=== PATIENT | male | born 1945 | race Caucasian/White ===

== ENCOUNTER → 2023-08-17 15:17 | Outpatient (REF) | payer OTHER, SELFPAY ==
[2023-08-17 16:02] LABS: % Basophils 0.8 % (0-2); % Eosinophils 3.1 % (0-6); % Immature Granulocytes 1.2 % (0-0.5); % Lymphocytes 16.9 % (20.5-51.1); % Monocytes 11.5 % (1.7-9.3); % Neutrophils 66.5 % (42.2-75.2); Absolute Eosinophils 0.2 10^3/uL (0-0.7); Absolute Immature Granulocytes 0.1 10^3/uL (0-0.05); Absolute Lymphocytes 0.9 10^3/uL (1.2-3.4); Absolute Monocytes 0.6 10^3/uL (0.1-0.6); Absolute Neutrophils 3.5 10^3/uL (1.4-6.5); Hematocrit 32.2 % (39.0-52.0); Hemoglobin 11.1 g/dL (13.0-18.0); Mean Corp Hgb Conc. 34.5 g/dL (33.0-37.0); Mean Corpuscular Hgb 34.5 pg (27.0-31.0); Mean Platelet Volume 9.5 fL (7.4-10.4); Nucleated Red Blood Cells % 0 % (-); Platelet Count 143 10^3/uL (130-400); Red Blood Cell Count 3.22 10^6/uL (4.70-6.10); Red Cell Dist. Width 15.2 % (11.5-14.5); White Blood Cell Count 5.2 10^3/uL (4.8-10.8)
[2023-08-17 16:28] LABS: ALT (SGPT) 20 U/L (0-50); AST (SGOT) 33 U/L (17-59); Albumin 3.8 g/dl (3.5-5.0); Alkaline Phosphatase 125 U/L (38-126); Blood Urea Nitrogen 19 mg/dl (9-20); Calcium 8.9 mg/dl (8.4-10.2); Carbon Dioxide 28 mmol/L (22-30); Chloride 99 mmol/L (98-107); Glucose 97 mg/dl (70-99); Potassium 3.9 mmol/L (3.5-5.1); Sodium 137 mmol/L (135-145); Total Bilirubin 1.7 mg/dl (0.2-1.3); Total Protein 6.5 g/dl (6.3-8.2); eGFR > 60.00
== END ==
LOC: REG 15:17
PROVIDERS: ATTENDING PHYSICIAN Nurse Practitioner Adult Health; REFERRING PHYSICIAN Family Medicine
DX: C15.5 Malignant neoplasm of lower third of esophagus (principal)
CPT/HCPCS: 36415; 80053; 84443; 85025

== ENCOUNTER → 2023-10-07 16:00 | Outpatient (REF) | payer OTHER, SELFPAY | LOC: DHCBC HW 16:00 | PROVIDERS: ATTENDING PHYSICIAN Internal Medicine; FAMILY PHYSICIAN Family Medicine | DX: R01.1 Cardiac murmur, unspecified (principal); I35.0 Nonrheumatic aortic (valve) stenosis | CPT/HCPCS: 93306 ==

== ENCOUNTER 2023-10-23 06:28 | Day surgery (SDC) | payer OTHER, SELFPAY ==
[2023-10-23 11:30] VITALS: BMI 23.9
[2023-10-23 11:32] VITALS: BP 120/84
[2023-10-23 13:51] VITALS: BP 105/73
[2023-10-23 14:00] VITALS: BP 110/75
== END 2023-10-23 14:41 | disposition home or self-care (01) ==
LOC: SDS 06:28
PROVIDERS: ATTENDING PHYSICIAN Internal Medicine Gastroenterology
DX: K22.89 Other specified disease of esophagus (principal); K20.90 Esophagitis, unspecified without bleeding
CPT/HCPCS: 43239; 88305

== ENCOUNTER → 2024-05-06 07:25 | Outpatient (REF) | payer OTHER, SELFPAY | LOC: RCS 07:25 | PROVIDERS: ATTENDING PHYSICIAN Internal Medicine; FAMILY PHYSICIAN Family Medicine | DX: I35.0 Nonrheumatic aortic (valve) stenosis (principal); C15.9 Malignant neoplasm of esophagus, unspecified | CPT/HCPCS: 93306; 93356 ==

== ENCOUNTER 2024-05-26 06:21 | Day surgery (SDC) | payer OTHER, SELFPAY ==
[2024-05-26 12:20] VITALS: BP 141/84
[2024-05-26 12:40] VITALS: BMI 25.1
[2024-05-26 12:41] VITALS: BMI 25.1
[2024-05-26 13:50] VITALS: BP 94/71
[2024-05-26 14:05] VITALS: BP 95/72
[2024-05-26 14:25] VITALS: BP 132/82
== END 2024-05-26 15:15 | disposition home or self-care (01) ==
LOC: SDS 06:21
PROVIDERS: ATTENDING PHYSICIAN Internal Medicine Gastroenterology
DX: C16.0 Malignant neoplasm of cardia (principal); K22.2 Esophageal obstruction; K22.10 Ulcer of esophagus without bleeding; K22.89 Other specified disease of esophagus; Z92.21 Personal history of antineoplastic chemotherapy
CPT/HCPCS: 43239; 88305; 88342; 88360

== ENCOUNTER → 2024-08-23 08:29 | Outpatient (REF) | payer OTHER, SELFPAY ==
[2024-08-23 10:09] LABS: % Basophils 1.3 % (0-2); % Eosinophils 8.8 % (0-6); % Immature Granulocytes 0.4 % (0-0.5); % Lymphocytes 29.5 % (20.5-51.1); % Monocytes 11.9 % (1.7-9.3); % Neutrophils 48.1 % (42.2-75.2); Absolute Eosinophils 0.2 10^3/uL (0-0.7); Absolute Lymphocytes 0.7 10^3/uL (1.2-3.4); Absolute Monocytes 0.3 10^3/uL (0.1-0.6); Absolute Neutrophils 1.1 10^3/uL (1.4-6.5); Hematocrit 32.8 % (39.0-52.0); Hemoglobin 11.6 g/dL (13.0-18.0); Mean Corp Hgb Conc. 35.4 g/dL (33.0-37.0); Mean Corpuscular Hgb 31.5 pg (27.0-31.0); Mean Corpuscular Volume 89.1 fL (80.0-94.0); Nucleated Red Blood Cells % 0 % (-); Platelet Count 123 10^3/uL (130-400); Red Blood Cell Count 3.68 10^6/uL (4.70-6.10); Red Cell Dist. Width 13.5 % (11.5-14.5); White Blood Cell Count 2.3 10^3/uL (4.8-10.8)
== END ==
LOC: REG 08:29
PROVIDERS: ATTENDING PHYSICIAN Nurse Practitioner Adult Health; FAMILY PHYSICIAN Family Medicine; OTHER PHYSICIAN Internal Medicine Hematology & Oncology
DX: C15.5 Malignant neoplasm of lower third of esophagus (principal)
CPT/HCPCS: 36415; 85025

== ENCOUNTER 2024-09-10 17:10 | Emergency (ER) | payer OTHER, SELFPAY ==
[2024-09-10 18:33] VITALS: BP 139/86; BMI 24.2
[2024-09-10 19:14] LABS: Hematocrit 30.6 % (39.0-52.0); Hemoglobin 10.6 g/dL (13.0-18.0); Mean Corp Hgb Conc. 34.6 g/dL (33.0-37.0); Mean Corpuscular Hgb 32.1 pg (27.0-31.0); Mean Corpuscular Volume 92.7 fL (80.0-94.0); Mean Platelet Volume 9.1 fL (7.4-10.4); Platelet Count 111 10^3/uL (130-400); Red Cell Dist. Width 16.6 % (11.5-14.5); White Blood Cell Count 21.9 10^3/uL (4.8-10.8)
[2024-09-10 19:17] LABS: Urine Albumin Negative (Neg - Trace); Urine Bilirubin Negative (Negative); Urine Character Slightly Cloudy (Clear); Urine Glucose Negative (Negative); Urine Ketone Negative (Negative); Urine Leukocyte Negative (Negative); Urine Nitrite Negative (Negative); Urine Occult Blood Negative (Negative); Urine Urobilinogen Negative (Neg - 1+)
[2024-09-10 19:20] LABS: Urine Color Straw
[2024-09-10 19:30] LABS: % Basophils 0.2 % (0-2); % Eosinophils 1.9 % (0-6); % Immature Granulocytes 2.3 % (0-0.5); % Lymphocytes 7.2 % (20.5-51.1); % Monocytes 9.6 % (1.7-9.3); % Neutrophils 78.8 % (42.2-75.2); Absolute Basophils 0.1 10^3/uL (0-0.2); Absolute Eosinophils 0.4 10^3/uL (0-0.7); Absolute Immature Granulocytes 0.5 10^3/uL (0-0.05); Absolute Lymphocytes 1.6 10^3/uL (1.2-3.4); Absolute Monocytes 2.1 10^3/uL (0.1-0.6); Absolute Neutrophils 17.2 10^3/uL (1.4-6.5); Nucleated Red Blood Cells % 0 % (-)
[2024-09-10 19:35] LABS: ALT (SGPT) 23 U/L (0-50); AST (SGOT) 32 U/L (17-59); Albumin 4.1 g/dl (3.5-5.0); Alkaline Phosphatase 158 U/L (38-126); Blood Urea Nitrogen 26 mg/dl (9-20); Carbon Dioxide 27 mmol/L (22-30); Chloride 99 mmol/L (98-107); Estimated Creatinine Clearance 50 ml/min; Glucose 101 mg/dl (70-99); Sodium 134 mmol/L (135-145); Total Bilirubin 1.9 mg/dl (0.2-1.3); eGFR > 60.00
[2024-09-10] MEDS: ULTRAM 50 MG PO (21:43)
[2024-09-10] MEDS: TORADOL 15 MG IV (21:44)
[2024-09-10 22:42] VITALS: BP 146/93
--- NOTE | 2024-09-10 23:15 | ED.GENMED ---
History of Present Illness
General
Chief Complaint: Male Genito-Urinary Symptoms
Source: patient
Exam Limitations: none
Time Seen by Provider: 09/10/24 18:38
Nursing documentation reviewed up to this point in time: agreed with
History of Present Illness
History of Present Illness:
79-year-old male with a past medical history of esophageal cancer currently on chemotherapy who presents to the emergency department for evaluation of right groin pain. Patient reports that symptoms started about a week ago initially were mild and
nagging but have become more consistent and bothersome over the past day or 2. He reports a sharp pinching pain in the right inguinal region. Does not radiate. He says it is worse with certain movements. No clear relieving factors noted. He
says he has some localized numbness in the inguinal region. No radicular symptoms down the legs. No pain in the back. No pain or swelling in the scrotum. He denies any change in his bowel movements. Denies any dysuria, hematuria, change in
urinary frequency. He denies any trauma or injury. Denies similar symptoms in the past.
Review of Systems
Review of Systems
All Other Systems: ROS reviewed and negative except as documented in HPI and ROS
Constitutional: Denies fever
Respiratory: Denies trouble breathing
Cardiac: Denies chest pain
ABD/GI: Denies abdominal pain, nausea or vomiting
Musculoskeletal: Reports other (groin pain)
Neurological: Reports headache and numbness; Denies dizzy
Phy Exam
Physical Exam
Physical Exam:
General: Awake, alert, oriented x3; no acute distress
Head: Normocephalic, atraumatic
Eyes: Conjunctiva normal
Throat: Airway intact, handling secretions
Neck: Trachea midline, supple without meningismus
Lungs: Breathing comfortably no distress
Heart: Regular rate
Abd: Soft, non distended, nontender
: Patient has strong femoral pulses bilaterally no pulsatile mass in the groin; he has no palpable inguinal hernia; no scrotal swelling or testicular tenderness, not focally tender
Neuro: Cranial nerves grossly intact, speech fluid, motor and sensory intact in all extremities, ambulatory with normal gait
Skin: no rash in area of concern
Extremities: No edema in extremities, warm and well-perfused with good pulses throughout the lower extremities
Scores
Heart Failure Risk
Heart Failure Risk Score: Not Applicable
Heart Score for Chest Pain Patients
STEMI patient?: Not applicable
Withdrawal Assessment of Alcohol
Withdrawal Assessment Completed?: Not applicable
Course
Orders/Labs/Results
Orders:
Orders
09/10/24 18:42
CT Abd/pel Without Iv Or Oral Urgent
Comment:
Reason For Exam: right abd/groin pain; c/f nephrolithiasis
09/10/24 19:05
Complete Blood Count/With Diff Urgent
Comprehensive Metabolic Panel Urgent
09/10/24 19:08
Urinalysis Reflex To Culture Urgent
Date Specimen was Collected: 09/10/24
Time Specimen was Collected: 19:05
09/10/24 21:39
Ketorolac [Toradol] 15 mg IV NOW STA
Tramadol HCl [Ultram] 50 mg PO NOW STA
Abnormal Lab Results
09/10/24
19:05
WBC 21.9 H 10^3/uL
(4.8-10.8)
RBC 3.30 L 10^6/uL
(4.70-6.10)
Hgb 10.6 L g/dL
(13.0-18.0)
Hct 30.6 L %
(39.0-52.0)
MCH 32.1 H pg
(27.0-31.0)
RDW 16.6 H %
(11.5-14.5)
Plt Count 111 L 10^3/uL
(130-400)
Abs Immat Gran (auto) 0.5 H 10^3/uL
(0-0.05)
Absolute Neuts (auto) 17.2 H 10^3/uL
(1.4-6.5)
Absolute Monos (auto) 2.1 H 10^3/uL
(0.1-0.6)
Immature Gran % 2.3 H %
(0-0.5)
Neutrophils % 78.8 H %
(42.2-75.2)
Lymphocytes % 7.2 L %
(20.5-51.1)
Monocytes % 9.6 H %
(1.7-9.3)
Sodium 134 L mmol/L
(135-145)
BUN 26 H mg/dl
(9-20)
Glucose 101 H mg/dl
(70-99)
Total Bilirubin 1.9 H mg/dl
(0.2-1.3)
Alkaline Phosphatase 158 H U/L
(38-126)
Total Protein 6.0 L g/dl
(6.3-8.2)
09/10/24 19:05
09/10/24 19:05
Vital Signs
Initial and Last Documented VS:
Initial Vital Signs
Temp Pulse Resp BP Pulse Ox
36.4 C 68 16 139/86 100
09/10/24 18:33 09/10/24 18:33 09/10/24 18:33 09/10/24 18:33 09/10/24 18:33
Last Documented Vital Signs
Temp Pulse Resp BP Pulse Ox
36.4 C 89 16 146/93 99
09/10/24 18:33 09/10/24 22:42 09/10/24 22:42 09/10/24 22:42 09/10/24 22:42
MDM/Problems Addressed
Differential Diagnosis Includes:
Inguinal hernia, muscle strain, pinched nerve, nephrolithiasis; very low clinical suspicion for DVT or acute vascular pathology
MDM/Problems Addressed:
79-year-old male presents for evaluation of pinching pain in the right inguinal region for the past week worse over the past few days. Associated with some superficial localized numbness. No trauma or injury reported. Vitals and exam as above.
Labs sent off including a CBC�he has a leukocytosis to 21.9 in the setting of chemotherapy for esophageal cancer; he said he had Neupogen injections this week for neutropenia which accounts for lab findings today. His CMP shows no clinically
significant abnormalities. His urinalysis was negative for infection or blood. CT abdomen pelvis shows no nephrolithiasis, no hernia, no other acute pathology. Could be minor pinched nerve or muscular tear. We treated him symptomatically and his
symptoms greatly improved. Stable for discharge with supportive care. Follow-up with PCP as an outpatient. All questions answered.
*Radiology
Radiology exam reviewed: radiology read reviewed
*Pulse Oximetry
Patient hypoxic: no
*Critical Care Note
Total Time (30-74mins, 75-104mins- exclusive of procedures): Not Applicable
Data Reviewed
Review of Other/Old Records Reveals: Labs and Records
Source: patient and records
ED Attending Note
-
Portions of this chart may have been created with voice recognition software.� Occasional wrong word or��sound alike� substitutions may have occurred due to the inherent limitations of voice recognition software.
Discharge Plan
Departure
Patient Disposition: Home (Routine Discharge)
Date of Disposition: 09/10/24
Time of Disposition: 22:33
Patient with high blood pressure during this ER visit?: No
Discharge Problem:
Right groin pain
Instructions: Radiculopathy of the neck and back (including sciatica)
Prescriptions:
New
tramadol 50 mg tablet
50 mg PO BID PRN (Reason: Pain) Qty: 14 0RF
No Action
multivitamin Capsule
1 cap PO DAILY
Patient Comments:
this is in a powder form
Low-Dose Aspirin 81 mg Tablet
See Rx Instructions .ROUTE .COMPLEX
Rx Instructions:
81 mg orally twice a week.
Referrals:
Chino Simental MD [Family Provider] - Follow up in 5-7 days
Activity Restrictions/Additional Instructions:
Thank you for visiting the Emergency Department at [facility].
1. Please schedule a follow up appointment as directed. Call first thing tomorrow morning to make an appointment.
2. If indicated, please take your medications as instructed and indicated on discharge paperwork.
3. If any of your symptoms do not improve, or persist, or become more severe within 6-12 hours, please return to the emergency department for further care.
4. Please return to the emergency department if you develop a headache, neck pain/stiffness, fever greater than 100.4F, chest pain, shortness of breath, persistent nausea, vomiting, slurred speech, difficulty walking, numbness/tingling, weakness,
signs of infection or any other symptoms that are worrisome to you.
Please call [phone] if you have any questions.
Interventions
Interventions:
*Risk Screen - Suicide Last Done: 09/10/24 18:33
*General Assessment Last Done: 09/10/24 18:33
*Neglect/Abuse Screening Last Done: 09/10/24 18:33
*ED- Fall Risk Assessment Last Done: 09/10/24 18:33
*ED COVID-19 Vaccine History Last Done: 09/10/24 18:33
*Nursing Disposition Last Done: 09/10/24 22:43
ED-Male Genitourinary Assessment Last Done: 09/10/24 18:42
Discharge Date and Time
Discharge Date/Time: 09/10/24 22:43
Print Language: TANZANIAN
== END 2024-09-10 22:43 | disposition home or self-care (01) ==
LOC: EMR 17:10
PROVIDERS: EMERGENCY PHYSICIAN Emergency Medicine; FAMILY PHYSICIAN Family Medicine; OTHER PHYSICIAN Internal Medicine Hematology & Oncology
DX: R10.31 Right lower quadrant pain (principal); C15.9 Malignant neoplasm of esophagus, unspecified
CPT/HCPCS: 99284; 96374; 74176; 80053; 81003; 85025

== ENCOUNTER 2024-10-07 06:10 | Day surgery (SDC) | payer OTHER, SELFPAY ==
--- NOTE | 2024-10-04 10:56 | PTCARENOTE ---
Abn WBC of 21.9, Donna at Dr. Kemp's office made aware.
[2024-10-07] VITALS (11 sets, daily range): BP systolic 75–166; BP diastolic 53–89; BMI 23.4
[2024-10-07] MEDS: TYLENOL 1000 MG PO (07:35)
[2024-10-07] MEDS: NORMOSOL-R/PLASMALYTE-A 1000 IV (07:49)
[2024-10-07 08:00] LABS: Mean Corp Hgb Conc. 34.3 g/dL (33.0-37.0); Mean Corpuscular Hgb 32.5 pg (27.0-31.0); Mean Corpuscular Volume 94.9 fL (80.0-94.0); Mean Platelet Volume 9.4 fL (7.4-10.4); Platelet Count 150 10^3/uL (130-400); Red Blood Cell Count 3.69 10^6/uL (4.70-6.10); White Blood Cell Count 4.2 10^3/uL (4.8-10.8)
[2024-10-07 08:29] LABS: Blood Urea Nitrogen 18 mg/dl (9-20); Calcium 9.1 mg/dl (8.4-10.2); Carbon Dioxide 27 mmol/L (22-30); Chloride 103 mmol/L (98-107); Estimated Creatinine Clearance 54 ml/min; Glucose 92 mg/dl (70-99); Sodium 139 mmol/L (135-145); eGFR > 60.00
--- NOTE | 2024-10-07 09:31 | W.SUR.PREOP ---
Pre-Operative Surgical Note
-
I have examined this patient prior to the performance of the scheduled procedure.
The patient's condition is unchanged from the time of the current History and
Physical and the patient is able to undergo the scheduled procedure.
--- NOTE | 2024-10-07 11:19 | W.IMMPOSTOP ---
Addendum entered and electronically signed by Jimmie Perez MD 10/11/24 16:03:
#[id number]
Original Note:
Surgical Immed Post Op Note
-
Primary Surgeon: Jimmie Perez MD
Assisting Surgeon: Skye NUNEZ
Pre-op Diagnosis: Right inguinal hernia
Post-op Diagnosis: Right inguinal hernia -indirect
Procedure Performed: Open Arnie tension-free mesh repair right inguinal hernia
Anesthesia Type: Monitored anesthetic care with incisional field block utilizing 1% lidocaine/0.25% Marcaine with epi
Specimen / Cultures: None
Estimated Blood Loss: 8 mL
Complications: None immediate
Operative Findings: Right indirect inguinal hernia. Direct space normal. No significant lipoma associated with cord structures. Only tension-free mesh repair utilizing Bard soft mesh 15 cm x 7.5 cm trimmed laterally to accommodate the inguinal
space.
Patient's updated postoperatively via phone call
== END 2024-10-07 13:10 | disposition home or self-care (01) ==
LOC: SDS 06:10
PROVIDERS: Surgery; ATTENDING PHYSICIAN Surgery
DX: K40.90 Unilateral inguinal hernia, without obstruction or gangrene, not specified as recurrent (principal); C15.9 Malignant neoplasm of esophagus, unspecified
CPT/HCPCS: 49505; 80048; 85027; C1894

== ENCOUNTER → 2025-01-16 13:50 | Outpatient (REF) | payer OTHER, SELFPAY | LOC: RCS 13:50 | PROVIDERS: ATTENDING PHYSICIAN Internal Medicine; FAMILY PHYSICIAN Family Medicine; OTHER PHYSICIAN Nurse Practitioner | DX: I35.0 Nonrheumatic aortic (valve) stenosis (principal); C15.9 Malignant neoplasm of esophagus, unspecified | CPT/HCPCS: 93306 ==

== ENCOUNTER 2025-01-27 14:46 | Emergency (ER) | payer OTHER, SELFPAY ==
[2025-01-27 14:48] VITALS: BP 110/71
[2025-01-27 15:35] LABS: ALT (SGPT) 25 U/L (0-50); AST (SGOT) 34 U/L (17-59); Albumin 4.1 g/dl (3.5-5.0); Alkaline Phosphatase 80 U/L (38-126); Blood Urea Nitrogen 12 mg/dl (9-20); Calcium 8.8 mg/dl (8.4-10.2); Carbon Dioxide 30 mmol/L (22-30); Chloride 93 mmol/L (98-107); Glucose 128 mg/dl (70-99); Lipase 50 U/L (23-300); Potassium 4.4 mmol/L (3.5-5.1); Sodium 128 mmol/L (135-145); Total Protein 6.6 g/dl (6.3-8.2); eGFR > 60.00
[2025-01-27 15:38] LABS: Hematocrit 32.3 % (39.0-52.0); Hemoglobin 11.3 g/dL (13.0-18.0); Mean Corp Hgb Conc. 35.0 g/dL (33.0-37.0); Mean Corpuscular Volume 86.4 fL (80.0-94.0); Nucleated Red Blood Cells % 0 % (-); Red Cell Dist. Width 12.5 % (11.5-14.5)
[2025-01-27 15:49] LABS: Troponin I 0.014 ng/ml
[2025-01-27 16:18] LABS: Platelet Count 203 10^3/uL (130-400)
[2025-01-27 17:37] VITALS: BP 135/79
[2025-01-27 17:45] VITALS: BP 135/79; BMI 21.9
--- NOTE | 2025-01-27 17:53 | ED.GENMED ---
History of Present Illness
General
Chief Complaint: Esophageal Problem
Source: patient
Exam Limitations: none
Time Seen by Provider: 01/27/25 17:08
Nursing documentation reviewed up to this point in time: agreed with
History of Present Illness
History of Present Illness:
Patient to ED with complaint of severe esophageal pain. History of esophageal cancer, first diagnosed in 2022. He follows with [facility]. This spring he developed dysphagia. He consulted with GI at [facility] and 4 days ago he had an esophageal
stent placed at [facility]. He was discharged home same day, to continue tylenol prn any discomfort. Reports weds the pain started to increaseand he reported nausea. He spoke with GI at [facility], told to continue tylenol and was prescribed zofran for
nausea. States today the pain is much worse. Tylenol and zofran have not been helfpul. States he was able to tolerate a protein drink this AM but nothing else. COmplains of numbness and tingling to scalp, hands, feet. Denies fever/chills.
Brought to ED by spouse for eval.
Past History
Past History
ED Past Medical History: Cancer (esophageal)
ED Past Surgical History: Other (Esophageal stent placed01/23/25)
Review of Systems
Review of Systems
Constitutional: Reports fatigue
EENT: Reports no symptoms
Respiratory: Reports no symptoms
Cardiac: Reports no symptoms
ABD/GI: Reports other (esophageal pain)
: Reports no symptoms
Musculoskeletal: Reports no symptoms
Skin: Reports no symptoms
Neurological: Reports weakness and other (numbness/tingling to hands, feet, scalp.)
Psychiatric: Reports no symptoms
Phy Exam
General Physical Exam
General Presentation: well appearing and no apparent distress
General age: appears stated age
General Skin: warm and dry
General Habitus: normal
General Mental: alert
General Hydration: appears well hydrated
ENT Exam
ENT Exam: swallowing well
Cardiovascular Exam
Cardiovascular Exam: regular rate/rhythm and no edema
Pulmonary Exam
Pulmonary Exam: lungs clear, no respiratory distress and chest non tender
Gastrointestinal Exam
Gastrointestinal Exam: non tender and soft
Musculoskeletal Exam
Musculoskeletal Exam: full ROM and neuro vasc intact
Skin Exam
Skin Exam: normal color, warm/dry and no rash
Psychiatric Exam
Psychiatric Exam: normal mood/affect
Course
Orders/Labs/Results
Orders:
Orders
01/27/25 14:54
ECG [Electrocardiogram (*1)] Urgent
Reason for Study: Chest Pain
Other Reason for Exam: esophageal
EKG- Treatment ONCE
01/27/25 15:10
Complete Blood Count/With Diff Urgent
Comprehensive Metabolic Panel Urgent
Lipase Urgent
Troponin I Urgent
01/27/25 17:38
0.9% Sodium Chloride 500 ml [Nss] 500 ml IV BOLUS
HYDROmorphone [Dilaudid] 0.5 mg IV NOW STA
Ondansetron Injectable [Zofran] 4 mg IV NOW STA
01/27/25 18:[address] [CT Chest With Iv Contrast] Urgent
Comment:
Reason For Exam: esophageal pain s/p stent placement.
01/27/25 18:45
Pantoprazole [Protonix IV] 40 mg IV NOW STA
01/27/25 21:23
Oxycodone/Acetaminophen [Percocet 5/325] 1 tablet PO NOW STA
Abnormal Lab Results
01/27/25
15:10
RBC 3.74 L 10^6/uL
(4.70-6.10)
Hgb 11.3 L g/dL
(13.0-18.0)
Hct 32.3 L %
(39.0-52.0)
Absolute Neuts (auto) 6.6 H 10^3/uL
(1.4-6.5)
Absolute Lymphs (auto) 0.9 L 10^3/uL
(1.2-3.4)
Neutrophils % 81.0 H %
(42.2-75.2)
Lymphocytes % 11.0 L %
(20.5-51.1)
Sodium 128 L mmol/L
(135-145)
Chloride 93 L mmol/L
(98-107)
Glucose 128 H mg/dl
(70-99)
Total Bilirubin 2.9 H mg/dl
(0.2-1.3)
01/27/25 15:10
01/27/25 15:10
Vital Signs
Initial and Last Documented VS:
Initial Vital Signs
Temp Pulse Resp BP Pulse Ox
98.6 F 95 16 110/71 100
01/27/25 14:48 01/27/25 14:48 01/27/25 14:48 01/27/25 14:48 01/27/25 14:48
Last Documented Vital Signs
Temp Pulse Resp BP Pulse Ox
98.7 F 98 20 127/74 100
01/27/25 17:45 01/27/25 19:30 01/27/25 18:15 01/27/25 19:00 01/27/25 18:30
*Radiology
Radiology exam reviewed: radiology read reviewed
*Pulse Oximetry
SaO2: 99
Oxygen Mode of Delivery: Room air
Patient hypoxic: no
*Critical Care Note
Total Time (30-74mins, 75-104mins- exclusive of procedures): Not Applicable
Update Note
Update Note:
Patient to ED [facility] complaint of lower esophageal pain. He has a history of esophageal cancer. Esophageal stent was placed at [facility] on Thursday. Taking tylenol for pain but this is no longer working. Spoke with [facility] fellow Dr. Nkechi Cui and
updated her on patient status. SHe notes patient was told on that pain may continue for an additional 3-4 days, to continue Tylenol> I discussed CT plan with her, reviewed current labs and she is agreeable to plna. Will update for any
concerning findings on CT,, otherwise he can follow up with GI on Thursday. He was giiven IVF and dilaudid in ED and he is much more comfortable. No difficulty breathing or swallowing, He is afebrile. CT of chest confirms stent placement and
reactive esophagitis. Discussed findings with patient. WIll discharge home and give rx for short course of pain medication. He will follow up with his [facility] on Thursday, Given instructions on s/s to return to ED and he is agreeable to plan.
ED Attending Note
-
Portions of this chart may have been created with voice recognition software.� Occasional wrong word or��sound alike� substitutions may have occurred due to the inherent limitations of voice recognition software.
Discharge Plan
Departure
Patient Disposition: Home (Routine Discharge)
Date of Disposition: 01/27/25
Time of Disposition: 21:24
Patient with high blood pressure during this ER visit?: No
Condition: Good
Covid-19: Not Applicable
Discharge Problem:
Esophageal pain
Instructions: Esophagitis
Prescriptions:
New
oxycodone 5 mg capsule
5 mg PO Q4H PRN (Reason: Pain) Qty: 20 0RF
No Action
pantoprazole 40 mg Tablet,Delayed Release (Dr/Ec)
40 mg PO BID
docusate sodium [Colace] 100 mg Capsule
100 mg PO DAILY
Ener C
1 dose PO DAILY
tramadol 50 mg tablet
25 - 50 mg PO Q6HPRN PRN (Reason: severe pain/breakthrough pain) Qty: 5 0RF
acetaminophen [Tylenol Extra Strength] 500 mg tablet
1,000 mg PO Q6HPRN PRN (Reason: mild pain) Qty: 1 0RF
ibuprofen 200 mg tablet
400 mg PO Q6HPRN PRN (Reason: moderate pain) Qty: 1 0RF
polyethylene glycol 3350 [Miralax] 17 gram/dose powder
4 g PO DAILY PRN (Reason: Constipation) Qty: 119 0RF
Rx Instructions:
start a laxative such as MIRALAX on day 2 after surgery if no bowel movement yet as long as no nausea/vomiting and passing gas
Referrals:
Chino Simental MD [Family Provider, Family Practice]
Activity Restrictions/Additional Instructions:
Follow up with [facility] on Thursday. Return to the emergency department immediately for any changes in/worseing of your symtpoms.
Interventions
Interventions:
*Risk Screen - Suicide Last Done: 01/27/25 17:42
*General Assessment Last Done: 01/27/25 17:42
*Neglect/Abuse Screening Last Done: 01/27/25 17:42
*ED- Fall Risk Assessment Last Done: 01/27/25 17:42
*ED COVID-19 Vaccine History Last Done: 01/27/25 17:42
*Nursing Disposition Last Done: 01/27/25 22:05
OW-Qljjtd-Wqxjpsozzt Assessment Last Done: 01/27/25 17:39
ED-EENT Assessment Last Done: 01/27/25 17:39
Discharge Date and Time
Discharge Date/Time: 01/27/25 22:06
Print Language: MALTESE
[2025-01-27] MEDS: NSS 500 IV (17:55)
[2025-01-27] MEDS: DILAUDID 0.5 MG IV (17:56)
[2025-01-27 18:00] VITALS: BP 128/71
[2025-01-27] MEDS: ZOFRAN 4 MG IV (18:01)
[2025-01-27 19:00] VITALS: BP 127/74
[2025-01-27] MEDS: PROTONIX IV 40 MG IV (19:07)
[2025-01-27] MEDS: PERCOCET 5/325 1 TABLET PO (21:54)
== END 2025-01-27 22:06 | disposition home or self-care (01) ==
LOC: EMR 14:46
PROVIDERS: EMERGENCY PHYSICIAN Emergency Medicine; FAMILY PHYSICIAN Family Medicine
DX: R07.0 Pain in throat (principal)
CPT/HCPCS: 99284; 96374; 96375; 71260; 80053; 83690; 84484; 85025; 93005; Q9967

== ENCOUNTER 2025-03-02 16:25 | Inpatient (IN) | payer OTHER, SELFPAY ==
[2025-03-02 16:43] VITALS: BMI 21.0
--- NOTE | 2025-03-02 16:45 | HPS.HSE ---
Addendum entered and electronically signed by Angelito Sher MD 03/03/25 13:43:
Was seen and examined on 03/02 at 1645
History of esophageal cancer aortic stenosis GERD transferred from [facility] for severe aortic stenosis follows with Dr. Fabricio storey eval with [facility] and [facility] planning.
Admitted to [facility] for syncopal episode while walking on Thursday around 11:45 in the morning, no precipitating factors apart from legs became jellylperri tried to brace himself against a trash can unfortunately did not make it. He did
receive compressions by bystanders. When he regained consciousness after approximately 30 minutes. Was not confused when he awoke but did need to shake his head to figure out what happened and where he was. He did hit his head and there is
left-sided facial bruising below the left orbit and a eschar on the back of his head. Trauma workup completed at [facility] without evidence of acute bleed or fractures.
The medical providers at [facility] believed that the severe aortic stenosis was the cause of the syncope. Therefore he was transferred over to [facility] for further evaluation.
Should be noted that he was also hyponatremic to 129 was given IV fluids and further decreased to 127. Suspected cause of hyponatremia was poor oral intake.
Syncope
Could be related to severe , electrolyte abnormalities
Check orthostatic vitals
Monitor on telemetry
Consult cardiology
N.p.o. after midnight for cardiac cath
On heparin drip while at [facility] therefore we will continue for now unless if cardiology says so
Hyponatremia euvolemic
Drinking water currently
Repeat BMP along with serum osmolality, urine electrolytes and urine osmolality
Depending on what the chloride is if low would give isotonic saline at a rate of 80 cc/h
Esophageal cancer s/p esophageal stent on chemo last chemotherapeutic was 02/23 and 2 days after receiving Neupogen
Continue outpatient follow-up with oncology
GERD
Continue PPI
time spent total reviewing everything 78mins
Original Note:
Family Physician
-
Family Physician: NO INTERVIEW UNKNOWN
Chief Complaint
-
Syncope
History of Present Illness
79-year-old with past medical history for hypertension, hyperlipidemia, severe aortic stenosis, esophageal cancer presented to us from [facility] for possible cardiac cath.patient drove to [place] with no complaints. he parked his car,
started walking , when he felt he legs were getting tired, he hold on to the trash can and next thing he remember that he was on the ambulance. patient received a round of CPR. patient has wound on the back of his head. he was noted have bruising on
the left side of the forehead.patient has ribs pains. he also has pain with swallowing for esophageal cancer. at present he is on chemo. his last chemo was last . denied VALERIO. denied fever, chills, cough, congestion. denied sob. denied
abdominal pain,n,v,d. denied dysuria or hematuria.
at [facility] ECHO with normal left ventricular size and systolic function. normal right ventricular size and systolic function. severe calcific aortic stenosis.
head CT with no acute findings at [facility] .CT chest with no PE.
noted to have elevated wbc and hyponatremia. he was treated with fluids at [facility] for hyponatremia
elevated trop initiated on heparin drip with plan for cardiac cath
Medical History
Past Medical History
Past Medical History: Reports Other
Additional Past Medical History:
Hypertension, hyperlipidemia, CVA aortic stenosis, esophageal ca
Past Surgical History: Reports Other
Additional Past Surgical History:
Right inguinal hernia repair
Social History
Tobacco: Non-smoker
Alcohol: None
Drug: None
Family History
Family History: Not pertinent
Allergies / Home Medications
Allergies reflects when Allergies were last updated in [facility].
Home Medications with original date entered in [facility]
Allergy/Medication List:
Allergies
Allergy/AdvReac Type Severity Reaction Status Date / Time
No Known Allergies Allergy Verified 01/27/25 14:53
Home Medications
Ener C 1 dose PO DAILY 10/05/24
docusate sodium 100 mg capsule (Colace) 100 mg PO DAILY 10/05/24
pantoprazole 40 mg tablet,delayed release 40 mg PO BID 10/05/24
acetaminophen 500 mg tablet (Tylenol Extra Strength) 1,000 mg (2 x 500 mg) PO Q6HPRN PRN mild pain #1 tab 10/07/24
ibuprofen 200 mg tablet 400 mg (2 x 200 mg) PO Q6HPRN PRN moderate pain #1 tab 10/07/24
polyethylene glycol 3350 17 gram/dose oral powder (Miralax) 4 g PO DAILY PRN Constipation #119 grams 10/07/24
tramadol 50 mg tablet 25 - 50 mg (0.5 - 1 x 50 mg) PO Q6HPRN PRN severe pain/breakthrough pain #5 tabs 10/07/24
oxycodone 5 mg capsule 5 mg PO Q4H PRN Pain #20 caps 01/27/25
Review of Systems
-
Constitutional: Reports No Symptoms
EENT: Reports No Symptoms
Respiratory: Reports No Symptoms
Cardiac: Reports No Symptoms
Abdomen/GI: Reports No Symptoms and Other (painful swallowing)
: Reports No Symptoms
Musculoskeletal: Reports No Symptoms
Skin: Reports Other (back of head with wound and and left side of the forehead with bruising)
Neurological: Reports No Symptoms
Endocrine: Reports No Symptoms
Hematologic/Lymphatic: Reports No Symptoms
Psych: Reports No Symptoms
Physical Exam
Vital Signs
Vital Signs
Temp Pulse Resp Pulse Ox
98.7 F 87 17 97
03/02/25 16:32 03/02/25 16:32 03/02/25 16:32 03/02/25 16:32
Physical Exam
General: Well Developed, Well Nourished and No Apparent Distress
HEENT: NormoCephalic, Moist mucous membranes and Atraumatic
Respiratory: Clear
Cardiac: S1/S2, Regular Rhythm and Murmur; No Rub
GI: Soft, Non Tender, Non Distended and Normal Bowel Sounds; No Organomegaly
Rectal: Deferred by Provider
Musculoskeletal: No Clubbing, No Cyanosis and No Edema
Skin: Other (left side of the forehead bruising, back of head with healed scab)
Neuro: AO x 3 and Nonfocal/grossly intact
Psych: Calm
Impression/Plan
-
# Syncope likely due to severe aortic stenosis
# Elevated Trope rule out NSTEMI
- Continue to trend Trope
-Heparin drip continue
-Obtain orthostatic
-Plan for cardiac cath tomorrow
-Cardiology consulted
# Facial and occipital laceration status post fall
-Continue to monitor
-CT head from previous hospital with no acute finding
-PT consult
# Hyponatremia likely hypovolemic
-Obtain stat BMP
- Will consider normal saline once BMP resulted
-BMP in the morning
- Obtain urinalysis, urine sodium, urine protein, urine creatinine and serum osmolality
# History of esophageal cancer status post esophageal stent
# Leukocytosis likely from chemo, patient is afebrile
-Patient was on chemo until last
- Continue to monitor CBC
- PPI
- Oxycodone as needed for pain
# DVT prophylaxis
- On heparin drip
# CODE STATUS
- Full code
--- NOTE | 2025-03-02 17:46 | W.PN.UPDATE ---
Update Note
Progress Note Update
Was seen and examined on 03/02 at 1645
History of esophageal cancer aortic stenosis GERD transferred from [facility] for severe aortic stenosis follows with Dr. Fabricio wilde with [facility] and TAVR planning.
Admitted to [facility] for syncopal episode while walking on Thursday around 11:45 in the morning, no precipitating factors apart from legs became jellylike tried to brace himself against a trash can unfortunately did not make it. He did
receive compressions by bystanders. When he regained consciousness after approximately 30 minutes. Was not confused when he awoke but did need to shake his head to figure out what happened and where he was. He did hit his head and there is
left-sided facial bruising below the left orbit and a eschar on the back of his head. Trauma workup completed at [facility] without evidence of acute bleed or fractures.
The medical providers at [facility] believed that the severe aortic stenosis was the cause of the syncope. Therefore he was transferred over to [facility] for further evaluation.
Should be noted that he was also hyponatremic to 129 was given IV fluids and further decreased to 127. Suspected cause of hyponatremia was poor oral intake.
Syncope
Could be related to severe , electrolyte abnormalities
Check orthostatic vitals
Monitor on telemetry
Consult cardiology
N.p.o. after midnight for cardiac cath
On heparin drip while at [facility] therefore we will continue for now unless if cardiology says so
Hyponatremia euvolemic
Drinking water currently
Repeat BMP along with serum osmolality, urine electrolytes and urine osmolality
Depending on what the chloride is if low would give isotonic saline at a rate of 80 cc/h
Esophageal cancer s/p esophageal stent on chemo last chemotherapeutic was 02/23 and 2 days after receiving Neupogen
Continue outpatient follow-up with oncology
GERD
Continue PPI
[2025-03-02] MEDS: ROXICODONE 10 MG PO (18:25)
[2025-03-02 18:26] VITALS: BP 138/72
[2025-03-02 18:55] LABS: Hematocrit 28.5 % (39.0-52.0); Hemoglobin 9.7 g/dL (13.0-18.0); Mean Corp Hgb Conc. 34.0 g/dL (33.0-37.0); Mean Corpuscular Volume 87.7 fL (80.0-94.0); Platelet Count 167 10^3/uL (130-400); Red Cell Dist. Width 15.7 % (11.5-14.5)
[2025-03-02 19:00] VITALS: BP 136/77
[2025-03-02 19:01] LABS: Hematocrit 27.5 % (39.0-52.0); Hemoglobin 9.5 g/dL (13.0-18.0); Mean Corp Hgb Conc. 34.5 g/dL (33.0-37.0); Mean Corpuscular Volume 86.8 fL (80.0-94.0); Platelet Count 153 10^3/uL (130-400); Red Cell Dist. Width 15.8 % (11.5-14.5)
[2025-03-02 19:05] LABS: APTT 34.4 Sec (23.4-35.0)
[2025-03-02 19:12] LABS: ALT (SGPT) 22 U/L (0-50); AST (SGOT) 26 U/L (17-59); Albumin 3.8 g/dl (3.5-5.0); Alkaline Phosphatase 207 U/L (38-126); Blood Urea Nitrogen 12 mg/dl (9-20); Calcium 8.4 mg/dl (8.4-10.2); Carbon Dioxide 27 mmol/L (22-30); Chloride 95 mmol/L (98-107); Estimated Creatinine Clearance 72 ml/min; Glucose 113 mg/dl (70-99); Potassium 4.1 mmol/L (3.5-5.1); Sodium 126 mmol/L (135-145); Total Protein 5.9 g/dl (6.3-8.2); eGFR > 60.00
[2025-03-02 19:30] LABS: Troponin I 0.038 ng/ml
--- NOTE | 2025-03-02 19:30 | PTCARENOTE ---
Lab informed this RN of a critical troponin 0.038. House provider TT.
[2025-03-02] MEDS: HEPARIN 25000 UNITS/250 ML IV (20:42)
[2025-03-02] MEDS: NSS 1000 IV (20:56)
[2025-03-02 22:40] LABS: Urine Character Clear (Clear)
[2025-03-02 23:00] VITALS: BP 117/67
[2025-03-03] VITALS (16 sets, daily range): BP systolic 80–132; BP diastolic 54–83; PULSE 84; O2SAT 99; BMI 21.0
[2025-03-03] MEDS: ROXICODONE 10 MG PO ×4 (01:06→23:13)
[2025-03-03 02:54] LABS: Hematocrit 23.7 % (39.0-52.0); Hemoglobin 8.5 g/dL (13.0-18.0); Mean Corp Hgb Conc. 35.9 g/dL (33.0-37.0); Mean Corpuscular Volume 86.5 fL (80.0-94.0); Platelet Count 144 10^3/uL (130-400); Red Cell Dist. Width 15.7 % (11.5-14.5)
[2025-03-03 03:09] LABS: APTT 57.8 Sec (23.4-35.0)
[2025-03-03] MEDS: ROXICODONE 5 MG PO (03:17)
[2025-03-03 03:23] LABS: Blood Urea Nitrogen 11 mg/dl (9-20); Calcium 8.1 mg/dl (8.4-10.2); Carbon Dioxide 26 mmol/L (22-30); Chloride 101 mmol/L (98-107); Estimated Creatinine Clearance 72 ml/min; Glucose 123 mg/dl (70-99); Potassium 3.8 mmol/L (3.5-5.1); Sodium 129 mmol/L (135-145); eGFR > 60.00
[2025-03-03 03:28] LABS: Troponin I 0.041 ng/ml
--- NOTE | 2025-03-03 03:30 | PTCARENOTE ---
This RN TT house provider of critical troponin of 0.041.
[2025-03-03] MEDS: NSS (PRESERVATIVE FREE) 10 ML IV (08:26)
[2025-03-03] MEDS: PROTONIX IV 40 MG IV (08:27)
[2025-03-03] MEDS: NSS 1000 IV (08:37)
--- NOTE | 2025-03-03 08:59 | CON.CAR ---
Addendum entered and electronically signed by Prashant Munoz MD 03/03/25 21:09:
Will order 500 NS overnight given contrast admin today (LHC and CTA).
Original Note:
Documented by User: ZACHARY Dumont 03/03/25 09:11
Consultation
Consultation Request
Date/Time Consultation Requested: 03/02/25 4:45p
Date/Time Consultation Performed: 03/03/25 8:30a
Requesting Provider: ZACHARY Dubois
Performing Provider: ZACHARY Dumont for Dr. Munoz
Reason for Consultation: severe /syncope
Medical History
-
Chief Complaint: syncope
History of Present Illness:
Mr. Vallejo is an 79 yo male with severe , and stage III esophageal cancer s/p chemo radiation 01/[address] Enriquez with recent esophageal stent 5 weeks ago and chemo treatments, who had a syncopal episode on Thursday02/25/25 while at work
in [facility]. Therefore he was taken to [facility] in [place] for evaluation, felt syncope related to known severe and he was transferred to [facility] for LHC and TAVR evaluation. Currently he c/o mild abdominal discomfort from constipation,
and upper epigastric discomfort from esophageal stent, otherwise denies any cardiac complaints.
Past Medical History
Past Medical History: Other (as above)
Past Surgical History: Other (right inguinal hernia repair 10/2024 Dr. Perez)
Social History
Tobacco: Former Smoker
Alcohol: None
Personal:
Living: With Family
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
Family History
Family History: Reviewed & Not Pertinent
Allergies / Home Medications
Allergy/AdvReac Type Severity Reaction Status Date / Time
No Known Allergies Allergy Verified 01/27/25 14:53
�Medication �Instructions �Recorded �Confirmed �Type
Ener C 1 dose PO DAILY 10/05/24 10/07/24 History
docusate sodium 100 mg capsule 100 mg PO DAILY 10/05/24 10/07/24 History
(Colace)
pantoprazole 40 mg tablet,delayed 40 mg PO BID 10/05/24 10/07/24 History
release
acetaminophen 500 mg tablet 1,000 mg (2 x 500 mg) PO Q6HPRN 10/07/24 Rx
(Tylenol Extra Strength) PRN mild pain #1 tab
ibuprofen 200 mg tablet 400 mg (2 x 200 mg) PO Q6HPRN PRN 10/07/24 Rx
moderate pain #1 tab
polyethylene glycol 3350 17 4 g PO DAILY PRN Constipation #119 10/07/24 Rx
gram/dose oral powder (Miralax) grams
tramadol 50 mg tablet 25 - 50 mg (0.5 - 1 x 50 mg) PO 10/07/24 Rx
Q6HPRN PRN severe
pain/breakthrough pain #5 tabs
oxycodone 5 mg capsule 5 mg PO Q4H PRN Pain #20 caps 01/27/25 Rx
Review of Systems
-
History Source: Patient
All other systems: Negative unless noted
Physical Exam
Vital Signs
Temp Pulse Resp BP Pulse Ox
98.3 F 84 15 132/81 100
03/03/25 07:24 03/03/25 07:24 03/03/25 07:24 03/03/25 07:24 03/03/25 07:24
Lab Results
03/03/25 02:39
03/03/25 02:39
Troponin I 0.041 ng/ml H* 03/03/25 02:39
Physical Exam
General: Well Developed, Well Nourished and No Apparent Distress
HEENT: Normocephalic, Anicteric and Moist Mucous Membranes
Respiratory: Clear and Non Labored Respirations
Cardiac: S1/S2, Regular Rhythm and Murmur (4/6 STEPHANIE)
Breast: Deferred by me
GI: Soft, Non Distended and Tender (mild diffuse)
Rectal: Deferred by Provider
Genito-urinary: Clear Urine
Musculoskeletal: No Clubbing and No Cyanosis
Skin: Warm, Dry and Other (left bob-orbital ecchymosis)
Neuro: AO x 3
Psych: Calm
Impression / Plan
-
Syncope - acute 02/25/25 w/o prodrome.
- due to severe aortic stenosis.
Aortic stenosis - known severe.
- symptomatic.
- plan for C today and TAVR evaluation.
Esophageal cancer - stage III.
- s/p chemo and radiation 01/2023.
- managed by Dr. Enriquez and currently receiving chemo 2x/week Thursday/.
- s/p esophageal stent placed 5 weeks ago, has constant pain.
Data Reviewed
-
EKG: Tracing Personally Visualized and interpreted (NSR 74 bpm)
Medical Tests (Nuc Med, Echo etc): Report Reviewed by me (echo 01/16/25: EF 65-70%, severe peak/mean gradients 116/76 mmHg, VICKY 0.5 cm2)
Labs: Labs Reviewed by me
Old Records: Reviewed

Documented by User: Prashant Munoz MD 03/03/25 21:04
Impression / Plan
-
Mr. Vallejo is a 79 year old man with past medical history of known severe and esophageal cancer s/p recent esophageal stenting and currently undergoing chemo under direction of Dr. Gabriel Enriquez. He has been known to have severe for some
time but previously declined TAVR. He recently had worsening gradients (to critical range) and was again recommended to have TAVR evaluation which was delayed in setting of pain from his esophageal stent 5 weeks ago. At that time he remarkably had
no significant symptoms. Unfortunately, a few days ago he had a syncopal episode while walking and received bystander CPR with [facility] (unclear if actually arrested) and was taken to [facility], then transferred here 03/02. No clear etiology of
than hypovolemia coupled with critical .
LHC performed today by me with minimal CAD, normal hemos. TAVR CT also performed this afternoon and reviewed personally with adequate iliofem anatomy and annular measurement pending but no obvious anatomic contraindication to TAVR (annulus appears
normal caliber, cor heights ok, etc.).
Discussed in detail with oncologist, Dr. Enriquez. He favors proceeding with TAVR and states it could open up possible curative options (surgical resection). States 1 year survival is reasonable at this point even without resection.
Given he had syncope with critical gradients I think TAVR needs to be completed inpatient. Discussed his case in detail with valve team / CT surgery / primary vp platforms Dr. Chase. I will have CT scan analyzed by industry over the weekend with aim
for TAVR next week pending personnel / OR availability.
Discussed plan in detail with patient who wishes to proceed. Family updated as well.
Plan for weekend is monitoring. Has anemia which may require further investigation.
Data Reviewed
-
EKG: Tracing Personally Visualized and interpreted
Radiology: Image Personally Visualized and interpreted
CT Scan: Image Personally Visualized and interpreted
Ultrasound: Image Personally Visualized and interpreted
Medical Tests (Nuc Med, Echo etc): Report Reviewed by me
Labs: Labs Reviewed by me, Discussed with Physician, Discussed with Patient and Discussed with Family
[2025-03-03 09:05] LABS: APTT 81.4 Sec (23.4-35.0)
[2025-03-03 09:20] LABS: Troponin I 0.046 ng/ml
--- NOTE | 2025-03-03 13:44 | W.PN.HOSP.TC ---
Today's Communication/Plan
-
Assessment / Plan
Assessment / Plan
General: Well Developed, Well Nourished and No Apparent Distress
HEENT: NormoCephalic, Moist mucous membranes and Atraumatic
Respiratory: Clear
Cardiac: S1/S2, Regular Rhythm and STEPHANIE Murmur grade II/ RUSB; No Rub
GI: Soft, Non Tender, Non Distended and Normal Bowel Sounds; No Organomegaly
Rectal: Deferred by Provider
Musculoskeletal: No Clubbing, No Cyanosis and No Edema
Skin: Other (left side of the forehead bruising, back of head with healed scab)
Neuro: AO x 3 and Nonfocal/grossly intact
Psych: Calm
Syncope
Could be related to severe , electrolyte abnormalities
Check orthostatic vitals
Monitor on telemetry
Consult cardiology
N.p.o. for cardiac cath
On heparin drip while at [facility] therefore we will continue for now unless if cardiology says so
Hyponatremia euvolemic
Drinking water currently
Repeat BMP along with serum osmolality, urine electrolytes and urine osmolality
Depending on what the chloride is if low would give isotonic saline at a rate of 80 cc/h
Esophageal cancer s/p esophageal stent on chemo last chemotherapeutic was 02/23 and 2 days after receiving Neupogen
Continue outpatient follow-up with oncology
GERD
Continue PPI
Anticipated Discharge: 24 - 48 hours
Subjective/Interval History
-
Date of Service: March 03, 2025
seen and examined. no new complaints. no acute ovenright events
Objective Data
-
Labs:
Laboratory Results
03/03/25 03/03/25
02:39 08:45
WBC 26.8 H
Hgb 8.5 L
Hct 23.7 L
Plt Count 144
APTT 57.8 H 81.4 H
Sodium 129 L
Potassium 3.8
Chloride 101
Carbon Dioxide 26
BUN 11
Creatinine 0.7
Glucose 123 H
Calcium 8.1 L
Vital Signs:
Vital Signs
Temp Pulse Resp BP Pulse Ox
98.0 F 91 17 117/69 97
03/03/25 10:53 03/03/25 10:53 03/03/25 10:53 03/03/25 10:53 03/03/25 10:53
I&O
03/02/25 03/03/25 03/04/25
06:59 06:59 06:59
Intake Total 480 / 480
Output Total 1700 / 1700
Balance -1220 / -1220
[2025-03-03 15:17] LABS: Troponin I 0.048 ng/ml
--- NOTE | 2025-03-03 15:38 | CM ---
Patient seen at bedside
IA completed
dx: aortic stenosis
PMH: Esophageal cancer s/p esophageal stent on chemo last chemotherapeutic was 02/23 and 2 days after receiving Neupogen
Lives with his in a 2 story home, [address], flight to bedroom/bathroom
PLOF: independent
Denies DME
Denies VN/Rehab
Denies insecurities
PCP: Dr. Suggs
PHARMACY: [facility]
PLAN: Home, when stable, no needs anticipated currently, CM to continue to follow
--- NOTE | 2025-03-03 21:10 | ITS.CL.PN ---
Passenger Interline Clerk - Procedure Note
Procedure
Procedure Note:
CARDIAC CATHETERIZATION REPORT
Date of Procedure: 03/03/2025
Referring: Dr. Rob Chase MD, PhD
Indication: critical with syncope
PROCEDURE(S)
1. right heart catheterization
2. coronary angiography
ACCESS
1. 6F right radial artery (closure: radial band)
2. 5F right antecubital vein (closure: manual hemostasis)
CATHETERS
1. 5F Atkinson-Manoj
2. 6F JR4
3. 6F JL3.5
MODERATE SEDATION: 25 minutes of moderate sedation was utilized. An independent medical technologist chemistry was present to assist with and help manage the patient's level of consciousness and physiologic status.
HEMODYNAMIC DATA
AO 113/61 (mean 81) mmHg
RA 8 mmHg
RV 27/8 (EDP 12) mmHg
PA 27/12 (mean 18) mmHg
PCWP 12 mmHg
SaO2 96.7 %
SvO2 64.6 %
Hb 8.8 g/dL
CO/CI 5.55/3.25 L/min/m2
SVR 1052 dsc*-5
PVR 1.1 Wood units
CORONARY ANGIOGRAPHY
Dominance: right
LM: Large, normal
LAD: Large vessel giving rise to a moderate caliber D1, small D2, and small D3. The vessel tapers to an atretic vessel apically but there is no other significant CAD.
LCx: Large vessel giving rise to a large branching OM1 and a moderate caliber LPL branch. There are trivial luminal irregularities only.
RCA: large vessel giving rise to moderate caliber RPDA and one small RPL branch. There are trivial luminal irregularities.
RADIATION: dose 123 mGy; DAP 6.46 Gy*cm2; fluoroscopy time 3.3 min
CONCLUSIONS
1. minimal coronary artery disease as described
2. normal biventricular filling pressures and normal cardiac output
RECOMMENDATION: proceed with urgent TAVR evaluation, CTA today
Signed: Prashant Munoz MD, PhD
[2025-03-03] MEDS: NSS 500 IV (21:29)
[2025-03-04] VITALS (7 sets, daily range): BP systolic 101–128; BP diastolic 58–74; PULSE 86–90
[2025-03-04] MEDS: ROXICODONE 10 MG PO ×4 (04:32→20:26)
[2025-03-04] MEDS: PROTONIX IV 40 MG IV (07:54)
[2025-03-04] MEDS: NSS (PRESERVATIVE FREE) 10 ML IV (07:54)
[2025-03-04 09:14] LABS: Hematocrit 23.5 % (39.0-52.0); Hemoglobin 8.2 g/dL (13.0-18.0); Mean Corp Hgb Conc. 34.9 g/dL (33.0-37.0); Mean Corpuscular Volume 88.0 fL (80.0-94.0); Platelet Count 166 10^3/uL (130-400); Red Cell Dist. Width 16.0 % (11.5-14.5)
[2025-03-04 09:45] LABS: Blood Urea Nitrogen 12 mg/dl (9-20); Calcium 8.7 mg/dl (8.4-10.2); Carbon Dioxide 24 mmol/L (22-30); Chloride 98 mmol/L (98-107); Estimated Creatinine Clearance 63 ml/min; Glucose 98 mg/dl (70-99); Potassium 3.8 mmol/L (3.5-5.1); Sodium 128 mmol/L (135-145); eGFR > 60.00
--- NOTE | 2025-03-04 11:26 | W.PN.HOSP.TC ---
Today's Communication/Plan
-
For TAVR early next week
Assessment / Plan
Assessment / Plan
General: Well Developed, Well Nourished and No Apparent Distress
HEENT: NormoCephalic, Moist mucous membranes and Atraumatic
Respiratory: Clear
Cardiac: S1/S2, Regular Rhythm and STEPHANIE Murmur grade II/ RUSB; No Rub
GI: Soft, Non Tender, Non Distended and Normal Bowel Sounds; No Organomegaly
Rectal: Deferred by Provider
Musculoskeletal: No Clubbing, No Cyanosis and No Edema
Skin: Other (left side of the forehead bruising, back of head with healed scab)
Neuro: AO x 3 and Nonfocal/grossly intact
Psych: Calm
Syncope
Could be related to severe , electrolyte abnormalities
Monitor on telemetry
Consult cardiology
S/p [facility] without obstructive disease.
On [facility] drip while [facility] therefore we will continue for now unless if cardiology says so
For TAVR early next week with Cardiology
Hyponatremia euvolemic
Drinking water currently
Repeat BMP along with serum osmolality, urine electrolytes and urine osmolality
Depending on what the chloride is if low would give isotonic saline at a rate of 80 cc/h
Esophageal cancer s/p esophageal stent on chemo last chemotherapeutic was 02/23 and 2 days after receiving Neupogen
Continue outpatient follow-up with oncology
GERD
Continue PPI
Anticipated Discharge: > 48 hours
Subjective/Interval History
-
Date of Service: March 04, 2025
Seen and examined. No new complaints. No acute overnight events.
Tolerated left heart catheterization well
Objective Data
-
Labs:
Laboratory Results
03/04/25
08:18
WBC 22.0 H
Hgb 8.2 L
Hct 23.5 L
Plt Count 166
Sodium 128 L
Potassium 3.8
Chloride 98
Carbon Dioxide 24
BUN 12
Creatinine 0.8
Glucose 98
Calcium 8.7
Vital Signs:
Vital Signs
Temp Pulse Resp BP Pulse Ox
99.2 F 81 16 102/58 98
03/04/25 11:12 03/04/25 11:12 03/04/25 11:12 03/04/25 11:12 03/04/25 11:12
I&O
03/03/25 03/04/25 03/05/25
06:59 06:59 06:59
Intake Total 480 / 480 500 / 500 720 / 720
Output Total 1700 / 1700 200 / 200 625 / 625
Balance -1220 / -1220 300 / 300 95 / 95
--- NOTE | 2025-03-04 13:31 | W.PN.CD ---
Today's Communication / Plan
-
Inpatient TAVR
Workup underway
High risk
Impression / Plan
-
Mr. Vallejo is a 79 year old man with past medical history of known severe and esophageal cancer s/p recent esophageal stenting and currently undergoing chemo under direction of Dr. Gabriel Enriquez. He has been known to have severe for some
time but previously declined TAVR. He recently had worsening gradients (to critical range) and was again recommended to have TAVR evaluation which was delayed in setting of pain from his esophageal stent 5 weeks ago. At that time he remarkably had
no significant symptoms. Unfortunately, a few days ago he had a syncopal episode while walking and received bystander CPR with [facility] (unclear if actually arrested) and was taken to [facility], then transferred here 03/02. No clear etiology of
than hypovolemia coupled with critical .
Syncope
Severe valvular aortic stenosis
Luminal coronary artery disease
Abnormal troponin => nonischemic myocardial injury from severe with syncope
Active esophageal cancer
GERD
Anemia, perhaps from treatment of eso. cancer, Hgb 8.2
Hyponatremia
Subjective:
No CP or dyspnea
Physical Exam
Vital Signs/Labs
Vital Signs
Temp Pulse Resp BP Pulse Ox
99.2 F 81 16 102/58 98
03/04/25 11:12 03/04/25 11:12 03/04/25 11:12 03/04/25 11:12 03/04/25 11:12
03/03/25 03/04/25 03/05/25
06:59 06:59 06:59
Actual Weight 60.838 kg
03/04/25 08:18
03/04/25 08:18
APTT 81.4 Sec (23.4-35.0) H 03/03/25 08:45
LAB Results
03/02/25 03/03/25 03/03/25
18:40 02:39 08:45
Troponin I 0.038 H* 0.041 H* 0.046 H*
03/03/25
14:21
Troponin I 0.048 H*
Physical Exam
Constitutional: No acute distress
Cardiovascular: Rhythm & rate is regular and Systolic murmur present (late peak murmur, S2 single)
Respiratory: Respiratory effort normal and Lungs clear to auscul.
GI: Soft and Distention absent
Data Reviewed
-
Date of Service: March 04, 2025
[2025-03-04] MEDS: MIRALAX 17 GRAMS PO (15:25)
--- NOTE | 2025-03-04 16:08 | W.PN.UPDATE ---
Update Note
Progress Note Update
Cross-cover-->RN asked something for N/V. ordered Mecca watts
[2025-03-04] MEDS: ZOFRAN 4 MG IV (16:22)
[2025-03-05] MEDS: ROXICODONE 10 MG PO ×5 (01:20→21:01)
[2025-03-05 03:05] VITALS: BP 102/58
[2025-03-05 08:01] VITALS: BP 111/66
[2025-03-05] MEDS: NSS (PRESERVATIVE FREE) 10 ML IV (08:02)
[2025-03-05] MEDS: PROTONIX IV 40 MG IV (08:03)
--- NOTE | 2025-03-05 12:12 | W.PN.HOSP.TC ---
Today's Communication/Plan
-
Assessment / Plan
Assessment / Plan
General: Well Developed, Well Nourished and No Apparent Distress
HEENT: NormoCephalic, Moist mucous membranes and Atraumatic
Respiratory: Clear
Cardiac: S1/S2, Regular Rhythm and STEPHANIE Murmur grade II/ RUSB; No Rub
GI: Soft, Non Tender, Non Distended and Normal Bowel Sounds; No Organomegaly
Rectal: Deferred by Provider
Musculoskeletal: No Clubbing, No Cyanosis and No Edema
Skin: Other (left side of the forehead bruising, back of head with healed scab)
Neuro: AO x 3 and Nonfocal/grossly intact
Psych: Calm
Syncope
Could be related to severe , electrolyte abnormalities
Monitor on telemetry
Consult cardiology
S/p [facility] without obstructive disease.
On heparin drip while at [facility] therefore we will continue for now unless if cardiology says so
For TAVR early next week with Cardiology
Hyponatremia euvolemic
Drinking water currently
Repeat BMP along with serum osmolality, urine electrolytes and urine osmolality
Depending on what the chloride is if low would give isotonic saline at a rate of 80 cc/h
Esophageal cancer s/p esophageal stent on chemo last chemotherapeutic was 02/23 and 2 days after receiving Neupogen
Continue outpatient follow-up with oncology
GERD
Continue PP
Constipation
Make MiraLAX daily and twice daily. Once having more frequent bowel change to daily as needed
Anticipated Discharge: > 48 hours
Subjective/Interval History
-
Date of Service: March 05, 2025
Seen and examined. No new complaints. No acute overnight events.
Objective Data
-
Labs:
Laboratory Results
03/05/25 03/05/25
11:40 11:41
WBC Pending
Hgb Pending
Hct Pending
Plt Count Pending
Sodium Pending
Potassium Pending
Chloride Pending
Carbon Dioxide Pending
BUN Pending
Creatinine Pending
Glucose Pending
Calcium Pending
Total Bilirubin Pending
AST Pending
ALT Pending
Alkaline Phosphatase Pending
Vital Signs:
Vital Signs
Temp Pulse Resp BP Pulse Ox
98.1 F 77 16 111/66 100
03/05/25 08:01 03/05/25 08:01 03/05/25 08:01 03/05/25 08:01 03/05/25 08:01
I&O
03/04/25 03/05/25 03/06/25
06:59 06:59 06:59
Intake Total 500 / 500 2400 / 2400
Output Total 200 / 200 2325 / 2325
Balance 300 / 300 75 / 75
--- NOTE | 2025-03-05 12:14 | W.PN.UPDATE ---
Update Note
Progress Note Update
Will arrange for TAVR Thursday (03/07) AM. Will transfer to [facility]. Labs including T&S ordered for this morning.
[2025-03-05 12:33] VITALS: BP 96/58
[2025-03-05 13:06] LABS: Hematocrit 24.3 % (39.0-52.0); Hemoglobin 8.5 g/dL (13.0-18.0); Mean Corp Hgb Conc. 35.0 g/dL (33.0-37.0); Mean Corpuscular Volume 86.8 fL (80.0-94.0); Nucleated Red Blood Cells % 0 % (-); Platelet Count 173 10^3/uL (130-400); Red Cell Dist. Width 17.0 % (11.5-14.5)
--- NOTE | 2025-03-05 13:14 | W.PN.CD ---
Today's Communication / Plan
-
TAVR Thursday, I reviewed risk of AV block needing pacemaker with TAVR
One dose of IV Lasix Thursday morning for his new pedal edema, add compression to LE
Impression / Plan
-
Mr. Vallejo is a 79 year old man with past medical history of known severe and esophageal cancer s/p recent esophageal stenting and currently undergoing chemo under direction of Dr. Gabriel Enriquez. He has been known to have severe for some
time but previously declined TAVR. He recently had worsening gradients (to critical range) and was again recommended to have TAVR evaluation which was delayed in setting of pain from his esophageal stent 5 weeks ago. At that time he remarkably had
no significant symptoms. Unfortunately, a few days ago he had a syncopal episode while walking and received bystander CPR with [facility] (unclear if actually arrested) and was taken to [facility], then transferred here 03/02. No clear etiology of
than hypovolemia coupled with critical .
Syncope
Severe valvular aortic stenosis
LE edema, bilat new, etiology likely related to anemia and valve disease
- PCWP 12 and RA 8 at cath this admit
- No heart failure invasively
- Will give one dose of lasix and add compression
Luminal coronary artery disease
Abnormal troponin => nonischemic myocardial injury from severe with syncope
Active esophageal cancer
GERD
Anemia, perhaps from treatment of eso. cancer, Hgb 8.2
Hyponatremia
Subjective:
No CP or dyspnea
Physical Exam
Vital Signs/Labs
Vital Signs
Temp Pulse Resp BP Pulse Ox
98 F 80 16 96/58 100
03/05/25 12:33 03/05/25 12:33 03/05/25 12:33 03/05/25 12:33 03/05/25 12:33
03/05/25 12:56
APTT 81.4 Sec (23.4-35.0) H 03/03/25 08:45
LAB Results
03/02/25 03/03/25 03/03/25
18:40 02:39 08:45
Troponin I 0.038 H* 0.041 H* 0.046 H*
03/03/25
14:21
Troponin I 0.048 H*
Physical Exam
Constitutional: No acute distress
EENT: Anicteric
Cardiovascular: Rhythm & rate is regular, Pedal edema present (tr to 1+ bilat, has been present last few weeks per pt) and S1S2 is normal
Respiratory: Respiratory effort normal and Lungs clear to auscul.
GI: Soft and Distention absent
Neuro/Psych: AO x 3
Data Reviewed
-
Date of Service: March 05, 2025
[2025-03-05 13:18] LABS: ALT (SGPT) 25 U/L (0-50); AST (SGOT) 27 U/L (17-59); Albumin 3.5 g/dl (3.5-5.0); Alkaline Phosphatase 158 U/L (38-126); Blood Urea Nitrogen 11 mg/dl (9-20); Calcium 8.4 mg/dl (8.4-10.2); Carbon Dioxide 26 mmol/L (22-30); Chloride 96 mmol/L (98-107); Estimated Creatinine Clearance 63 ml/min; Glucose 121 mg/dl (70-99); Potassium 4.1 mmol/L (3.5-5.1); Sodium 126 mmol/L (135-145); Total Protein 5.6 g/dl (6.3-8.2); eGFR > 60.00
[2025-03-05 13:31] LABS: Troponin I 0.026 ng/ml
[2025-03-05 16:31] VITALS: BP 120/73
--- NOTE | 2025-03-05 16:58 | CONSULT.CT ---
Consultation
-
Date/Time Consultation Requested: 03/05/25 1446
Date/Time Consultation Performed: 03/05/25 1600
Requesting Provider: Dr. Prashant Munoz
Performing Provider: ZACHARY Serrano for Dr. Juvencio King
Reason for Consultation: Severe/Critical, Symptomatic Aortic Stenosis
Patient History
Physicians
Inpatient Ecological Risk Assessor: [facility]
History of Present Illness
Mr. Fredo Vallejo is an 79-year-old male with a PMHx of severe , GERD, and stage III esophageal cancer s/p chemo/radiation (01/2023) and chemo (02/23/2025) followed by Dr. Enriquez from [facility] s/p esophageal stent placement
(mid-January 2025) at [facility] who was transferred to [facility] for evaluation of severe/critical with recent syncopal episode.
Mr. Vallejo reported that he finished his last chemotherapy on 02/23/25. The following day, he reported feeling fatigued with decreased intake. On 02/25/25, he shared waking up and feeling back to baseline in which he was able to drive for
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 He reported after leaving his car, he was able to walk about 100 feet until he began to endure weakness in his lower extremities causing him to lean onto a trash can for stability.
He reported a loss of consciousness and waking up in an ambulance. It was reported he received bystander CPR with [facility]. He was taken to [facility] in [place] in which a trauma workup was completed due to a presenting left periorbital hematoma
and occipital eschar. His workup further entailed an echocardiogram which showed critical aortic stenosis in which the medical team attributed to his syncopal event.
Mr. Vallejo was transferred to [facility] 03/02/25 for TAVR evaluation. TAVR CT was obtained. [facility] showed luminal CAD. TTE reported EF 65-70% with critical (P/M 116/76, VICKY 0.5), and trace MR. Today, he denied any prior syncopal or presyncopal episodes,
lightheadedness, dizziness, lower extremity edema, orthopnea, MORALES, PND, chest tightness/pain, or abdominal bloating. He reported that he has had pain with swallowing over the last 5 weeks following placement of his esophageal stent. Due to his
pain, he has reverted to a softened diet with intake consisting of protein drinks, ice cream, and liquids. He was subsequently started on low-dose oxycodone for his discomfort leading to constipation. He recently started using MiraLAX causing
diarrhea prior to finalizing his last chemotherapy 02/23/25. He denied any history of an exercise treadmill test or symptoms he would attribute to his known aortic stenosis.
Past Medical History
Past Medical History: Cancer (Esophageal Cancer), GERD and Valvular Disease (Severe Aortic Stenosis)
Past Surgical History
Past Surgical History: Other
Esophageal Stent placed 01/2025 at [facility]
Dental History
Last dental visit 2.5 years ago
Family History
Mother: N/A
Father: N/A
Social History
Alcohol: None
Drug: None
Tobacco: Former Smoker
Personal:
Living: With Spouse
Employment: Employed (Part-Time in [employer] with [employer])
Allergies
Allergy/AdvReac Type Severity Reaction Status Date / Time
No Known Allergies Allergy Verified 01/27/25 14:53
Home Medications
�Medication �Instructions �Recorded �Confirmed �Type
Ener C 1 dose PO DAILY 10/05/24 10/07/24 History
docusate sodium 100 mg capsule 100 mg PO DAILY 10/05/24 10/07/24 History
(Colace)
pantoprazole 40 mg tablet,delayed 40 mg PO BID 10/05/24 10/07/24 History
release
acetaminophen 500 mg tablet 1,000 mg (2 x 500 mg) PO Q6HPRN 10/07/24 Rx
(Tylenol Extra Strength) PRN mild pain #1 tab
ibuprofen 200 mg tablet 400 mg (2 x 200 mg) PO Q6HPRN PRN 10/07/24 Rx
moderate pain #1 tab
polyethylene glycol 3350 17 4 g PO DAILY PRN Constipation #119 10/07/24 Rx
gram/dose oral powder (Miralax) grams
tramadol 50 mg tablet 25 - 50 mg (0.5 - 1 x 50 mg) PO 10/07/24 03/05/25 Rx
Q6HPRN PRN severe
pain/breakthrough pain #5 tabs
oxycodone 5 mg capsule 5 mg PO Q4H PRN Pain #20 caps 01/27/25 Rx
Review of Systems
-
History Source: Patient
General: Reports Weight Loss
HEENT: Reports No Symptoms
Respiratory: Reports No Symptoms
Cardiac: Reports Edema (B/L LE edema)
Abdomen/GI: Reports Nausea, Diarrhea and Constipation
: Reports No Symptoms
Musculoskeletal: Reports No Symptoms
Skin: Reports Other (Occipital Abrasion)
Neurological: Reports Syncope and Weakness
Vascular: Reports No Symptoms
Physical Exam
Vital Signs
Temp 97.8 F 03/05/25 16:31
Temp route: Oral 03/05/25 16:31
Pulse 88 03/05/25 16:31
Rhythm: Normal sinus rhythm 03/05/25 09:21
Resp Rate 16 03/05/25 16:31
Blood pressure 120/73 03/05/25 16:31
Blood pressure extremity used: Left upper arm 03/05/25 16:31
Position: Lying 03/05/25 16:31
SaO2 98 03/05/25 16:31
Oxygen Mode of Delivery Room air 03/05/25 16:31
Pulse Ox at Rest 99 03/03/25 09:38
Can the patient verbally communicate their pain? Yes 03/05/25 16:30
Pain scale ratin 03/05/25 16:30
Actual Weight 60.838 kg 03/02/25 16:43
Body Mass Index (BMI) 21.0 03/02/25 16:43
Supine- Blood Pressure 121/74 03/04/25 18:14
Supine- Pulse 90 03/04/25 18:14
Sitting- Blood Pressure 105/71 03/04/25 18:14
Sitting- Pulse 89 03/04/25 18:14
Standing- Blood Pressure 128/71 03/04/25 18:14
Standing- Pulse 86 03/04/25 18:14
Blood pressure extremity used: Left upper arm 03/04/25 18:14
Mode BP taken: Automatic 03/04/25 18:14
Labs
03/05/25 12:56
03/05/25 12:56
APTT 81.4 Sec (23.4-35.0) H 03/03/25 08:45
Troponin I 0.026 ng/ml 03/05/25 12:56
Urinalysis
Urine Color Yellow 03/02/25 22:26
Urine Clarity Clear (Clear) 03/02/25 22:26
Urine pH 6.5 (5.0-9.0) 03/02/25 22:26
Ur Specific [place] 1.010 (<1.030) 03/02/25 22:26
Urine Ketones Negative (Negative) 03/02/25 22:26
Ur Occult Blood Reflex Negative (Negative) 03/02/25 22:26
Urine Bilirubin Negative (Negative) 03/02/25 22:26
Leukocyte Esterase Rfl Negative (Negative) 03/02/25 22:26
Urine Glucose Negative (Negative) 03/02/25 22:26
Urine Albumin (Reflex) Negative (Neg - Trace) 03/02/25 22:26
Exam
General: Well Developed and No Apparent Distress
HEENT: Normocephalic, Atraumatic, PERRLA and Other (L periorbital hematoma, Occipital abrasion)
Respiratory: Clear
Cardiac: S1/S2, Regular Rhythm and Murmur
GI: Soft, Non Tender, Non Distended and Normal Bowel Sounds
Skin: Warm and Dry
Neuro: AO x 3, No Motor Deficits and Nonfocal/Grossly Intact
Extremities: Lower Level Edema and Pulses (+2 pedal B/L)
Lymph: No Lymphadenopathy
Psych: Calm
Assessment / Plan
-
Mr. Fredo Vallejo is an 79-year-old male with a PMHx of severe , GERD, and stage III esophageal cancer s/p chemo/radiation (01/2023) and chemo (02/23/2025) followed by Dr. Enriquez from [facility] s/p esophageal stent placement
(mid-January 2025) at [facility] who was transferred to [facility] for evaluation of severe/critical with recent syncopal episode. Patient underwent TAVR CT and R/LHC with Dr. Prashant Munoz in which he is being considered for TAVR.
#Severe/Critical Aortic Stenosis
- Patient's case will be discussed with Dr. Juvencio King.
- Procedural timing/intervention to be determined after Attending's full evaluation.
- Routine pre-operative orders initiated, including:
- Anesthesia Consult
- Pre-op labwork, including T & S
- Panelipse for dental clearance
- Continue current medical management per primary team
Procedure Type:�Isolated AVR
Perioperative Outcome Estimate %
Operative Mortality 6.61%
Morbidity & Mortality 24.7%
Stroke 2.77%
Renal Failure 2.53%
Reoperation 7.92%
Prolonged Ventilation 13.1%
Deep Sternal Wound Infection 0.046%
Long Hospital Stay (>14 days) 15.9%
Short Hospital Stay (<6 days)* 18.8%
Clinical Summary
Planned Surgery: Isolated AVR, Urgent, First cardiovascular surgery
Demographics: 79 year old, male, 60.83kg, 170cm, BMI: 21 kg/m�
Lab Values: Creatinine: 0.8 mg/dL, Hematocrit: 24.3%, WBC Count: 19.6 10�/�L, Platelet Count: 552897 cells/�L
Substance Abuse: Former smoker
Risk Factors / Comorbidities: Cancer <=5 yrs, Syncope
Cardiac Status: Chronic heart failure, Ejection Fraction = 65%
Coronary Artery Disease: No coronary symptoms
Valve Disease: Aortic Stenosis, Trivial/Trace MR
Data Reviewed
-
Lens Mold Setter: Report Reviewed by me
Echo: Report Reviewed by me
Radiology: Report Reviewed by me
Labs: Labs Reviewed by me
Total Time Spent with Patient (in minutes): 45
[2025-03-05] MEDS: MIRALAX 17 GRAMS PO (19:51)
[2025-03-05 19:55] VITALS: BP 98/62
[2025-03-05 22:25] VITALS: BP 129/78
[2025-03-06] VITALS (7 sets, daily range): BP systolic 105–131; BP diastolic 64–78; BMI 20.7
[2025-03-06] MEDS: ROXICODONE 10 MG PO ×4 (02:26→20:56)
[2025-03-06] MEDS: LASIX 20 MG IV (08:02)
[2025-03-06] MEDS: PROTONIX IV 40 MG IV (08:03)
[2025-03-06] MEDS: NSS (PRESERVATIVE FREE) 10 ML IV (08:03)
[2025-03-06] MEDS: MIRALAX 17 GRAMS PO (08:09)
[2025-03-06 09:05] LABS: INR 1.19; PT 15.4 Sec (11.4-14.6)
[2025-03-06 09:11] LABS: Blood Urea Nitrogen 10 mg/dl (9-20); Calcium 8.9 mg/dl (8.4-10.2); Carbon Dioxide 26 mmol/L (22-30); Chloride 97 mmol/L (98-107); Estimated Creatinine Clearance 63 ml/min; Glucose 113 mg/dl (70-99); Potassium 4.0 mmol/L (3.5-5.1); Sodium 128 mmol/L (135-145); eGFR > 60.00
[2025-03-06 09:21] LABS: Hematocrit 24.6 % (39.0-52.0); Hemoglobin 8.4 g/dL (13.0-18.0); Mean Corp Hgb Conc. 34.1 g/dL (33.0-37.0); Mean Corpuscular Volume 88.8 fL (80.0-94.0); Nucleated Red Blood Cells % 0 % (-); Platelet Count 178 10^3/uL (130-400); Red Cell Dist. Width 17.5 % (11.5-14.5)
--- NOTE | 2025-03-06 10:00 | W.PN.CD ---
Today's Communication / Plan
-
Plan for TAVR tomorrow
Impression / Plan
-
Mr. Vallejo is a 79 year old man with past medical history of known severe and esophageal cancer s/p recent esophageal stenting and currently undergoing chemo under direction of Dr. Gabriel Enriquez. He has been known to have severe for some
time but previously declined TAVR. He recently had worsening gradients (to critical range) and was again recommended to have TAVR evaluation which was delayed in setting of pain from his esophageal stent 5 weeks ago. At that time he remarkably had
no significant symptoms. Unfortunately, a few days ago he had a syncopal episode while walking and received bystander CPR with [facility] (unclear if actually arrested) and was taken to [facility], then transferred here 03/02. No clear etiology of
than hypovolemia coupled with critical .
Syncope
Severe valvular aortic stenosis
LE edema, bilat new, etiology likely related to anemia and valve disease
- PCWP 12 and RA 8 at cath this admit
- No heart failure invasively
- one dose of lasix . mild on exam. Continue monitor. Compression
Luminal coronary artery disease
Abnormal troponin => nonischemic myocardial injury from severe with syncope
Active esophageal cancer
GERD
Anemia, 8.4 . no acute bleeding. Monitor closing. Will reviw with TAVR team regarding HB pre TAVR
Hyponatremia
Subjective:
No CP or dyspnea
Physical Exam
Vital Signs/Labs
Vital Signs
Temp Pulse Resp BP Pulse Ox
98.6 F 102 16 116/73 99
03/06/25 02:33 03/06/25 08:45 03/06/25 02:33 03/06/25 07:36 03/06/25 07:54
03/06/25 08:17
03/06/25 08:17
PT 15.4 Sec (11.4-14.6) H 03/06/25 08:17
INR 1.19 03/06/25 08:17
APTT 81.4 Sec (23.4-35.0) H 03/03/25 08:45
LAB Results
03/03/25 03/05/25
14:21 12:56
Troponin I 0.048 H* 0.026
Physical Exam
Constitutional: No acute distress
Cardiovascular: Rhythm & rate is regular and Systolic murmur present
Respiratory: Wheeze Absent and Rhonchi Absent
GI: Soft
Neuro/Psych: Alert
Other: Other
mild lower extremtiy edema
Data Reviewed
-
Date of Service: March 06, 2025
Medical Decision Making: Reviewed Test Results
Echo: Report Reviewed by me
Medical Tests (PFT, Pathology etc): Report Reviewed by me
Labs: Labs Reviewed by me
--- NOTE | 2025-03-06 10:12 | W.PN.UPDATE ---
Update Note
Progress Note Update
CARDIAC SURGERY ATTENDING:
I had a long conversation at bedside with Mr. Fredo Vallejo. He is a very pleasant 79-year-old gentleman esophageal cancer, severe aortic stenosis, prior CVA, hypertension, hyperlipidemia who initially presented to [facility] after an episode
of syncope and a round of CPR. Cardiac catheterization was performed on 03/03/2025 and demonstrated minimal CAD with normal biventricular filling pressures and normal cardiac output. His echocardiogram from 01/16/2025 demonstrated normal
biventricular size and function without any regional wall motion abnormalities. His aortic valve was thickened with restricted leaflet motion and severe aortic stenosis (near critical) with peak/mean valve gradient of 116/76 mmHg respectively. His
VICKY calculated to 0.5. He had trace associated aortic regurgitation. He had no additional valvular pathologies. His EKG demonstrated normal sinus rhythm at 74 bpm. His Panelipse demonstrated no acute pathology. His TAVR CT scan has been
completed. Our institutional measurements are pending at this time. However, he appears to size well for a 26 mm MONY 3 valve and have adequate bilateral iliofemoral systems for TAVR.
Given his presentation and severe/near critical aortic stenosis, coupled with a reasonable oncologic outcome from his esophageal CA, I believe it is prudent to proceed with TAVR. Mr. Vallejo and I discussed the TAVR procedure in great detail,
reviewed the periprocedural risks (including, but not limited to, , stroke, DE, arrhythmia, PPM requirement, PNA, BERYL/F, bleeding/vascular injury, and infection), discussed the expected in-hospital postprocedural course, and reviewed the
expected outpatient recovery. All questions were answered to the best of my abilities. The patient is agreeable to proceed. Informed consent was obtained.
Current plan is to proceed with TAVR tomorrow, 03/07/2025.
Thank you.
Juvencio King MD
[phone]
--- NOTE | 2025-03-06 11:58 | W.PN.HOSP.TC ---
Today's Communication/Plan
-
holding off blood transfusions after discussion with Cardiology (general, interventional) and CT surg
TAVR 03/07
Assessment / Plan
Assessment / Plan
General: Well Developed, Well Nourished and No Apparent Distress
HEENT: NormoCephalic, Moist mucous membranes and Atraumatic
Respiratory: Clear
Cardiac: S1/S2, Regular Rhythm and STEPHANIE Murmur grade II/ RUSB; No Rub
GI: Soft, Non Tender, Non Distended and Normal Bowel Sounds; No Organomegaly
Rectal: Deferred by Provider
Musculoskeletal: No Clubbing, No Cyanosis and No Edema
Skin: Other (left side of the forehead bruising, back of head with healed scab)
Neuro: AO x 3 and Nonfocal/grossly intact
Psych: Calm
Syncope related to Severe valvular aortic stenosis
- Monitor on telemetry
- Cardiology following
- S/p LHC without obstructive disease.
- On heparin drip while at [facility] therefore we will continue for now unless if cardiology says so
- For TAVR 03/07 with interventional Cardiology/CT surgery
Anemia
- no acute bleeding
- d/w Fernando Kuo, and Tammy - holding off blood transfusion today per Dr. King.
Hypervolemic hyponatremia
Acute LE edema
- no evidence of acute CHF per [facility]
- IV Lasix x 1 per cardiology; continue compression
- monitor Na, improved today from 126 to 128
coronary artery disease
nonischemic myocardial injury from severe with syncope
Esophageal cancer s/p esophageal stent on chemo last chemotherapeutic was 02/23 and 2 days after receiving Neupogen
- Continue outpatient follow-up with oncology
GERD
- Continue PPI
Constipation
- Make MiraLAX daily and twice daily. Once having more frequent bowel change to daily as needed
Anticipated Discharge: > 48 hours
Subjective/Interval History
-
Date of Service: March 06, 2025
denies CP or dyspnea
for TAVR in 24 hours
Objective Data
-
Labs:
Laboratory Results
03/06/25
08:17
WBC 14.5 H
Hgb 8.4 L
Hct 24.6 L
Plt Count 178
PT 15.4 H
INR 1.19
Sodium 128 L
Potassium 4.0
Chloride 97 L
Carbon Dioxide 26
BUN 10
Creatinine 0.8
Glucose 113 H
Calcium 8.9
Vital Signs:
Vital Signs
Temp Pulse Resp BP Pulse Ox
98.6 F 96 16 116/73 99
03/06/25 02:33 03/06/25 10:45 03/06/25 02:33 03/06/25 07:36 03/06/25 10:48
I&O
03/05/25 03/06/25 03/07/25
06:59 06:59 06:59
Intake Total 2400 / 2400
Output Total 2325 / 2325 700 / 700
Balance 75 / 75 -700 / -700
Data Reviewed
-
Total Time Spent with Patient (in minutes): 42
Labs: Labs Reviewed by me
[2025-03-06] MEDS: SENOKOT-S 1 TABLET PO (16:34)
--- NOTE | 2025-03-06 16:42 | PTCARENOTE ---
Pt received in bed @ 0700. Minimal assistance OOB to chair and ambulating to bathroom. PRN Roxicodone 10mg PO given for sternal pain. SaO2 97% on room air. Sinus Rhythm/Sinus tach on alarm security or surveillance monitor. Murmur upon auscultation. +1 pedal edema. Pt
without bowel movement this admission. Complaint of constipation. Miralax given without effect. PRN Senokot administered.
[2025-03-06] MEDS: KCL 20 MEQ PO (22:27)
[2025-03-06] MEDS: MIRALAX PO (22:28)
--- NOTE | 2025-03-06 23:00 | PTCARENOTE ---
Assumed care of the pt @ 1900. Pt is AAOx3 SR on the monitor VSS c/o sternal pain meds given per numeric pain scale see MAR for times and dose. 4% Chlorahexidine soap bath done for upcoming TAVR procedure. Call lantigua within reach.
[2025-03-07] VITALS (31 sets, daily range): BP systolic 73–128; BP diastolic 57–94; BMI 19.7
[2025-03-07] MEDS: ROXICODONE 10 MG PO (03:10)
[2025-03-07 05:27] LABS: Hematocrit 24.9 % (39.0-52.0); Hemoglobin 8.6 g/dL (13.0-18.0); Mean Corp Hgb Conc. 34.5 g/dL (33.0-37.0); Mean Corpuscular Volume 88.6 fL (80.0-94.0); Nucleated Red Blood Cells % 0 % (-); Platelet Count 199 10^3/uL (130-400); Red Cell Dist. Width 17.0 % (11.5-14.5)
[2025-03-07] MEDS: BACTROBAN 2% OINTMENT 1 APPLIC NASAL (05:34)
[2025-03-07 05:50] LABS: Blood Urea Nitrogen 10 mg/dl (9-20); Calcium 8.8 mg/dl (8.4-10.2); Carbon Dioxide 25 mmol/L (22-30); Chloride 98 mmol/L (98-107); Estimated Creatinine Clearance 63 ml/min; Glucose 115 mg/dl (70-99); Potassium 4.2 mmol/L (3.5-5.1); Sodium 129 mmol/L (135-145); eGFR > 60.00
[2025-03-07] MEDS: LOW STRENGTH ASPIRIN 81 MG PO (06:28)
--- NOTE | 2025-03-07 06:28 | W.CVOR.SURPR ---
CVOR Surgeon Immed Pre Op
-
I have examined this patient prior to performance of the scheduled procedure.
The patient's condition is unchanged from the time of the dictated/written History and
Physical and the patient is able to undergo the scheduled procedure.
--- NOTE | 2025-03-07 06:40 | PTCARENOTE ---
Pt received stat 81 mg ASA. Pt wiped with 2% CHG wipes gown and sheets changed.
[2025-03-07] MEDS: LOW STRENGTH ASPIRIN 243 MG PO (06:59)
--- NOTE | 2025-03-07 07:24 | PTCARENOTE ---
Pt received 3 more ASA 81 mg tablets for a total of 324 mg prior to TAVR procedure
[2025-03-07] MEDS: ANCEF 10 IV ×2 (08:11)
[2025-03-07 08:51] LABS: ACT-LR - POC 289 Seconds (116-155)
[2025-03-07 09:22] LABS: ACT-LR - POC 316 Seconds (116-155)
[2025-03-07] MEDS: LEVOPHED 250 IV (10:21)
--- NOTE | 2025-03-07 11:42 | W.IMMPOSTOP ---
Addendum entered and electronically signed by Juvencio King MD 03/07/25 12:00:
[id number]
Original Note:
Surgical Immed Post Op Note
-
STRUCTURAL HEART PROCEDURE NOTE: TAVR
Preoperative Dx:
Severe aortic stenosis (peak/mean valve gradients 116/76 mmHg, VICKY 0.5, trace AI)
Esophageal cancer status post esophageal stent, last chemo 02/23/2025
Syncope
Hypertension/hyperlipidemia
Prior CVA
Postoperative Dx:
Same
Procedures:
1. Left common femoral venous access with ultrasound and fluoroscopic guidance, Seldinger technique, long 6 Finnish sheath placement
2. Left common femoral arterial access with tactile, ultrasound, and fluoroscopic guidance, Seldinger technique, long 6 Finnish sheath placement
3. Placement of temporary RV pacing wire under fluoroscopic guidance with threshold testing
4. Placement of pigtail catheter in right coronary cusp with limited aortography and confirmation of coplanar valve deployment angles
5. Right common femoral arterial access with tactile, ultrasound, and fluoroscopic guidance, Seldinger technique, limited angiography, placement of Perclose sutures x 2, placement of 8 Finnish sheath
6. Placement of Pollack E sheath via right common femoral artery access
7. Wire purchase across stenotic aortic valve (AL-1, soft-tipped straight, LVEDP assessment (20 mmHg), extra-stiff wire)
8. Right transfemoral TAVR with placement of 26 mm MONY 3 valve
9. Completion aortography
10. Completion TTE assessment (mean gradient 5 mmHg, no associated PVL or AI)
11. Removal of valve delivery system/Pollack E sheath with right common femoral artery management with Perclose sutures x 2, manual pressure
12. Completion right iliofemoral angiography (questionable filling defect in distal VIDEO RENTAL CLERK well below access site; ? thrombus)
13. Contralateral wire/catheter access to right iliofemoral system, directed angiography with resolution of filling defect
14. Removal of temporary pacing wire
15. Removal of left common femoral artery 6 Finnish sheath with management with 6 Finnish Angio-Seal, manual pressure
16. Removal of left common femoral venous 6 Finnish sheath with management with manual pressure
restaurant greeter:
Dr. Prashant Munoz
Cardiac Surgeon:
Dr. Juvencio King
Implants:
Pollack [employer], MONY 3 valve, 26 mm, serial number: [id number]
Perclose x 2 to right common femoral artery
Angio-Seal x 1 to left common femoral artery
Cath Data:
Start: 0814 hrs., deploy: 842 hrs., ended: 926 hrs.
FT: 20.6 minutes, MGY: 272, DAP: 26.8, contrast: 123
Post TTE: Mean gradient 5 mmHg, no associated AI or PVL
Complications:
Filling defect noted on initial right iliofemoral angiography post Pollack E sheath removal. Not redemonstrated on repeat angiography.
Condition:
Stable/guarded to recovery
[2025-03-07 12:07] LABS: ACT-LR - POC 388 Seconds (116-155)
[2025-03-07] MEDS: MIRALAX PO ×2 (12:48→19:33)
[2025-03-07] MEDS: PROTONIX IV IV (12:50)
[2025-03-07] MEDS: NSS (PRESERVATIVE FREE) IV (12:50)
[2025-03-07] MEDS: ROXICODONE 5 MG PO ×2 (14:05→20:24)
--- NOTE | 2025-03-07 14:55 | W.PN.UPDATE ---
Addendum entered and electronically signed by Yemi Sher MD 03/07/25 15:07:
Disregard update note
See progress note.
Original Note:
Update Note
Progress Note Update
Patient unable to be evaluated in morning
Not present in room 1500 again.
Will evaluate in morning tomorrow.
--- NOTE | 2025-03-07 15:02 | W.PN.HOSP.TC ---
Addendum entered and electronically signed by Yemi Sher MD 03/10/25 13:28:
Add on to diagnosis list
Moderate protein calorie malnutrition
Original Note:
Today's Communication/Plan
-
monitor BP
check bladder scan
possible d/c tomorrow
Assessment / Plan
Assessment / Plan
Syncope related to Severe valvular aortic stenosis
s/p TAVR on 03/07
- Monitor on telemetry
- Cardiology following
- S/p LHC without obstructive disease.
- On heparin drip while at [facility], further management @ per cards
- Got TAVR 03/07. no complains post procedure.
Anemia
- no acute bleeding
- d/w Fernando Kuo, and Tammy - holding off blood transfusion today per Dr. King.
Hypervolemic hyponatremia
Acute LE edema
- no evidence of acute CHF per [facility]
- IV Lasix x 1 per cardiology; continue compression
- Na is up to 128
- maintain on 40oz fluid restriction
coronary artery disease
nonischemic myocardial injury from severe with syncope
Esophageal cancer s/p esophageal stent on chemo last chemotherapeutic was 02/23 and 2 days after receiving Neupogen
- Continue outpatient follow-up with oncology
GERD
- Continue PPI
Constipation
- Make MiraLAX daily and twice daily. Once having more frequent bowel change to daily as needed
Full code
Anticipated Discharge: Within 24 hours
Subjective/Interval History
-
Date of Service: March 07, 2025
denies of having issues except urinary incontinence
no pain at cath access site
Objective Data
-
Labs:
Laboratory Results
03/07/25
05:07
WBC 14.8 H
Hgb 8.6 L
Hct 24.9 L
Plt Count 199
Sodium 129 L
Potassium 4.2
Chloride 98
Carbon Dioxide 25
BUN 10
Creatinine 0.8
Glucose 115 H
Calcium 8.8
Vital Signs:
Vital Signs
Temp Pulse Resp BP Pulse Ox
97.4 F 83 16 128/71 98
03/07/25 11:23 03/07/25 12:45 03/07/25 11:23 03/07/25 12:45 03/07/25 12:30
I&O
03/06/25 03/07/25 03/08/25
06:59 06:59 06:59
Intake Total 240 / 240 800 / 800
Output Total 700 / 700 400 / 400 900 / 900
Balance -700 / -700 -160 / -160 -100 / -100
Review of Systems
-
Respiratory: Reports No Symptoms
Cardiac: Reports No Symptoms
Abdomen/GI: Reports No Symptoms
Physical Exam
-
General: No Apparent Distress
HEENT: Negative Oxygen
Neuro: Awake, Alert, Oriented and No Motor Deficits
--- NOTE | 2025-03-07 15:43 | ITS.CL.PN ---
Flotation Tank Operator - Procedure Note
Procedure
Procedure Note:
TRANSCATHETER AORTIC VALVE REPLACEMENT REPORT
Date of Procedure: 03/07/2025
Referring: Dr. Rob Mensah MD, PhD
Indication: Critical aortic stenosis with syncope
Operators: Prashant Munoz MD, PhD (interventional cardiology); Dr. Juvencio King MD (CT surgery)
Anesthesia: conscious sedation provided by the anesthesia staff
PROCEDURE: transfemoral, transcatheter aortic valve replacement with an Pollack MONY 3 Ultra RESILIA 26 mm valve
ACCESS:
1. 6F left femoral vein (closure: manual hemostasis) - Ultrasound was utilized for vascular access. The vessel was visualized under ultrasound and noted to be patent. An image of the vessel was stored permanently in the patient's medical record.
Under direct ultrasound guidance, vascular access was obtained using a modified Seldinger technique and a 6 Montenegrin sheath was placed.
2. 6F left common femoral artery (closure: Angioseal) - Ultrasound was utilized for vascular access. The vessel was visualized under ultrasound and noted to be patent. An image of the vessel was stored permanently in the patient's medical record.
Under direct ultrasound guidance, vascular access was obtained using a modified Seldinger technique and a 6 Montenegrin sheath was placed.
3. 14F right common femoral artery (closure: Perclose x2) - Ultrasound was utilized for vascular access. The vessel was visualized under ultrasound and noted to be patent. An image of the vessel was stored permanently in the patient's medical
record. Under direct ultrasound guidance, vascular access was obtained using a modified Seldinger technique and a 6 Montenegrin sheath was placed.
HEMODYNAMIC DATA
LVEDP 18 mmHg
PROCEDURE NARRATIVE:
The patient was prepped and draped in standard sterile fashion. Conscious sedation was provided by the anesthesia staff. 6F left femoral vein and left common femoral artery access was obtained with ultrasound guidance using micropuncture technique
with verification of appropriate arteriotomy location via hand injection angiography. A temporary venous pacing wire was advanced via the left femoral vein to the right ventricle under fluoroscopic guidance with appropriate capture verified. A 5F
pigtail catheter was advanced via the left common femoral artery and seated in the right coronary cusp. Angiography was performed to verify the co-planar angle.
8F right common femoral artery access was obtained with ultrasound guidance using micropuncture technique with verification of appropriate arteriotomy location via hand injection angiography. The arteriotomy was preclosed with two Perclose sutures
followed by replacement of the 8F sheath. Using an AL1 catheter, an Amplatz Extrastiff wire was placed in the descending thoracic aorta. The 8F sheath was removed and the 14F Pollack E-sheath was inserted over the Extrastiff wire and into the
descending aorta. The AL1 catheter was re-advanced through the E-sheath to the level of the ascending aorta. The Extrastiff wire was exchanged for a soft tipped straight wire which was used to cross the aortic valve and deposit the AL1 in the LV
apex. A J-wire was used to exchange the AL1 for a pigtail catheter in the LV and LVEDP was measured. An Amplatz Extrastiff wire with curved proximal end was advanced through the pigtail catheter and seated in the LV apex. ACT was checked and
confirmed to be >300 seconds.
The valve was brought to the table with orientation and deployment contrast volume verified. The valve was advanced over the Extrastiff wire and into the descending aorta. The balloon was withdrawn, and the valve was mounted on the balloon. The
valve was advanced over the aortic arch and into the aortic valve annulus. The pusher device was withdrawn. Low volume aortography confirmed valve positioning. The valve was deployed during rapid ventricular pacing. The balloon was walked back to
the descending aorta while leaving the wire in place. The patient was resuscitated by anesthesia with recovery of adequate blood pressure. Telemetry demonstrating sinus rhythm. Aortography demonstrated good valve positioning, adequate coronary
filling, and no aortic valve insufficiency. Echocardiography confirmed no aortic insufficiency. Mean valve gradient was 5 mmHg. The valve deployment system was removed.
The Pollack E sheath was removed, and hemostasis obtained with the two Perclose sutures. Protamine was given. Aortoiliac angiography demonstrated no evidence of iliofemoral dissection/perforation and good runoff below the common femoral artery
bilaterally. There was a small area in the SFA concerning for a possible filling defect versus vessel overlap effect. A Glidewire and Omni Flush catheter were used to go up and over from the contralateral groin and exchanged for a quick cross
microcatheter which was used to take selective angiography of the right femoral artery at oblique angulation which demonstrated no filling defect and known mild calcific PAD. The pacemaker was removed. The left femoral artery sheath was removed
using a 6F Angioseal. The left femoral venous sheath was removed with manual pressure.
CONCLUSION: successful placement of an Pollack MONY 3 Ultra RESILIA 26 mm transcatheter aortic valve via right transfemoral approach with no acute complications
Copy to: Dr. Rob Chase MD, PhD (anode worker); Dr. Chino Simental MD (PCP)
Signed: Prashant Munoz MD, PhD
[2025-03-07] MEDS: ANCEF 5 IV (15:55)
--- NOTE | 2025-03-07 15:57 | W.PN.CD ---
Today's Communication / Plan
-
uncomplicated TF TAVR
TTE in AM
Impression / Plan
-
Mr. Vallejo is a 79 year old man with past medical history of known severe and esophageal cancer s/p recent esophageal stenting and currently undergoing chemo under direction of Dr. Gabriel Enriquez. He has been known to have severe for some
time but previously declined TAVR. He recently had worsening gradients (to critical range) and was again recommended to have TAVR evaluation which was delayed in setting of pain from his esophageal stent 5 weeks ago. At that time he remarkably had
no significant symptoms. Unfortunately, a few days ago he had a syncopal episode while walking and received bystander CPR with ROSC (unclear if actually arrested) and was taken to [facility], then transferred here 03/02. No clear etiology of
than hypovolemia coupled with critical .
Now s/p TF TAVR with Pollack Job 3 Ultra Resilia 26 mm valve. No acute complications. Mean gradient 5 mmHg with no PVL. No heart block. LVEDP 18 mmHg during case. At end of case there was initial concer for R SFA clot though this was resolved on
re-imaging and on interrogation of initial imaging this was likely due to vessel overlap effect and not a true luminal filling defect.
Plan will be to monitor overnight, TTE in AM, cont. SAPT with ASA monotherapy.
Syncope
Severe valvular aortic stenosis
Luminal coronary artery disease
Abnormal troponin => nonischemic myocardial injury from severe with syncope
Active esophageal cancer
GERD
Anemia, 8.4 . no acute bleeding. Monitor closing.
Hyponatremia
Subjective:
Doing well post TAVR
Physical Exam
Vital Signs/Labs
Vital Signs
Temp Pulse Resp BP Pulse Ox
36.3 C 95 15 128/71 100
03/07/25 15:12 03/07/25 15:12 03/07/25 15:12 03/07/25 12:45 03/07/25 15:12
03/06/25 03/07/25 03/08/25
06:59 06:59 06:59
Actual Weight 59.9 kg 56.9 kg
03/07/25 05:07
03/07/25 05:07
PT 15.4 Sec (11.4-14.6) H 03/06/25 08:17
INR 1.19 03/06/25 08:17
APTT 81.4 Sec (23.4-35.0) H 03/03/25 08:45
LAB Results
03/05/25
12:56
Troponin I 0.026
Physical Exam
Constitutional: Comfortable
Cardiovascular: Rhythm & rate is regular
Respiratory: Respiratory effort normal
Neuro/Psych: AO x 3
Data Reviewed
-
Date of Service: March 07, 2025
Medical Decision Making: Reviewed Test Results
Labs: Labs Reviewed by me
--- NOTE | 2025-03-07 16:10 | CM ---
spoke to daughter, chad,on phone, tavr done today, plan is for PT OT to clear to go home tomorrow if medically stable. she is agreeable to this plan.
--- NOTE | 2025-03-07 19:22 | PTCARENOTE ---
~0700: Handoff report received from nightshift RN. Patient taken to [facility] for TAVR procedure.
~1030: Patient transferred back to unit s/p TAVR in stable condition. BL groin sites CDI and soft with no hematoma at this time. PT AOx4, responds to all neuro questions appropriately. He is drowsy but easily arrousable at this time, NSR 70s-80s,
SBP 90s on levo @ 2 at this time, RA satting 100%. hypoactive bowel sounds, lungs clear, voids in urinal, I/Os charted. +2 DP pulses, +1 pitting edema in BLE. All needs met at this time, call lantigua within reach.
~1330: Patient now able to sit up, HOB elevated to 30 degrees, tolerated well. Lunch ordered, patient able to tolerate sips of water at this time. Levo weaned off, SBP 107. All needs met, call lantigua within reach.
~1400: Patient Ax2 OOB to chair. Groin sites remains soft and CDI. Pt given food to order meals. PRN Genevieve given for 7/10 pain scale. All needs met at this time, call lantigua within reach.
~[id number]: Patient in chair. Tolerated lunch/ dinner. Education provided on importance to call for assistance to get to bathroom for safety. Pt remains NSR, VSS. All needs met at this time, call lantigua within reach.
~[id number]: Pt OOB in chair. Hygiene care completed independently in bathroom. VSS. All needs met at this time. Call lantigua within reach. Handoff report given to nightshift RN.
--- NOTE | 2025-03-08 00:26 | PTCARENOTE ---
Assumed care of patient at change of shift. Tele monitor shows NSR, VSS. Pt denies any SOB or lightheadedness. Neuro WNL. B/l groin sites soft, right groin site w/ small amount of shadowing on dressing. Left groin dressing intact. B/l pedal pulses
are palpable. Pt aware of POC, and can make needs known. Despite pt not moving his bowels for a couple days, pt refuses to take the Miralax tonight. He stated 'I don't want to be up all night going to the bathroom'. Educated pt, despite education pt
refuses medication. Call lantigua within reach.
[2025-03-08] MEDS: ROXICODONE 5 MG PO (02:08)
[2025-03-08 02:14] VITALS: BP 127/64
[2025-03-08] MEDS: FLUSH (NSS) 2 FLUSH IV (03:48)
[2025-03-08 04:16] LABS: Hematocrit 22.3 % (39.0-52.0); Hemoglobin 7.8 g/dL (13.0-18.0); Mean Corp Hgb Conc. 35.0 g/dL (33.0-37.0); Mean Corpuscular Volume 87.8 fL (80.0-94.0); Platelet Count 182 10^3/uL (130-400); Red Cell Dist. Width 17.6 % (11.5-14.5)
--- NOTE | 2025-03-08 04:20 | W.PN.CT ---
Today's Communication / Plan
-
Plan:
-No major issues overnight. Hemodynamically and neurologically intact
-No drips
-No rhythm issues overnight, currently NSR @ 68 bpm
-H/H 7.8/22.3, down from 8.6/24.9, denies lightheadedness/dizziness
-Groins C/D/I without significant hematoma
-ASA only
-Hyponatremia, 126, has bilateral 2+ LE pitting edema, ? Lasix, check wt, consider Samsca
-Encourage use of IS
-OOB into chair/Ambulate
-D/C home today
Assessment / Plan
-
Assessment:
-S/P Right Transfemoral TAVR (26 mm Pollack MONY 3 Ultra RESILIA), by Dr. King/Tammy, 03/07/24, pod#1
-Severe aortic stenosis (peak/mean valve gradients 116/76 mmHg, VICKY 0.5, trace AI)
-Esophageal cancer status post esophageal stent 01/2025, last chemo 02/23/2025
-Recent syncope
-Hypertension
-Hyperlipidemia
-GERD
-Prior CVA
-LVEF 60-65%, per intraop [place]
-Anemia
-Abnormal troponin, non ischemic
-Former tobacco use
-Hyponatremia
Discussed patient care with: Cardiology, Nursing, Respiratory Therapy, Pharmacy and Care Team
Subjective
Procedure
S/P Right Transfemoral TAVR (26 mm Pollack MONY 3 Ultra RESILIA), by Dr. King/Tammy, 03/07/24,
-
Date of Service: March 08, 2025
Pt c/o esophageal pain, otherwise feels well. Denies CP/SOB, lightheadedness/dizziness
Objective Data
-
Lab Results
03/08/25 03:57
PT 15.4 Sec (11.4-14.6) H 03/06/25 08:17
INR 1.19 03/06/25 08:17
APTT 81.4 Sec (23.4-35.0) H 03/03/25 08:45
Vital Signs
Vital Signs
Temp Pulse Resp BP Pulse Ox
97.9 F 68 20 127/64 100
03/08/25 02:09 03/08/25 03:00 03/08/25 02:09 03/08/25 02:14 03/08/25 02:14
CT Intake/Output/Weight
03/07/25 03/07/25 03/08/25
06:59 18:59 06:59
Intake Total 240 / 240 800 / 800
Output Total 400 / 400 900 / 900
Balance -160 / -160 -100 / -100
SaO2: 100 (RA)
Physical Exam
-
General: Awake, Oriented and AOx3
Cardiovascular: Regular rate & rhythm and No Murmurs
Respiratory: Clear
Incision: Clean, Dry, Intact and Dressing Intact
Extremities: Edema +2 (bilateral LE)
Data Reviewed
-
Lab Results: Results Reviewed
Medications: Active Meds Reviewed
Chest X-Ray: Report Reviewed and Image Reviewed
ECG: Report Reviewed and Image Reviewed
[2025-03-08 04:39] LABS: Blood Urea Nitrogen 17 mg/dl (9-20); Calcium 8.4 mg/dl (8.4-10.2); Carbon Dioxide 25 mmol/L (22-30); Chloride 98 mmol/L (98-107); Estimated Creatinine Clearance 60 ml/min; Glucose 120 mg/dl (70-99); Potassium 4.2 mmol/L (3.5-5.1); Sodium 126 mmol/L (135-145); eGFR > 60.00
[2025-03-08 07:05] VITALS: BP 115/68
--- NOTE | 2025-03-08 08:13 | W.PN.ANS.POP ---
Anesthesia Post Operative
- Anesthesia Post Op Note
Vital Signs Stable-See Nursing Note: Yes
Airway Patent: Yes
Adequate Pain Control: Yes
Change in Mental Status: No
Current Postoperative Nausea & Vomiting: No
Anesthesia Complications: No
General Anesthetic Recall: No
Unplanned Admission: No
Post Op Hydration Adequate: Yes
--- NOTE | 2025-03-08 08:29 | W.DCSUMMARY ---
Discharge Summary
Discharge Data
Date of Admission: 03/02/25
Date of Discharge: 03/08/25
-
Pending Results: No
Hospital Course
Primary care physician: none
Outpatient electrical equipment technician: Fabricio Chase
Inpatient consultants: [facility] Cardiology
Procedures:
1. TAVR
Primary Diagnosis:
1. Severe aortic stenosis (peak/mean valve gradients 116/76 mmHg, VICKY 0.5, trace AI)
Secondary Diagnoses:
1. Esophageal cancer (Stage III) status post esophageal stent, last chemo 02/23/2025
2. Syncope
3. Hypertension
4. Hyperlipidemia
5. Hx CVA
6. Presence of right port
7. Chronic hyponatremia
HPI: 79-year-old male with a PMH of severe , GERD, and stage III esophageal cancer s/p chemo/radiation (01/2023) and chemo (02/23/2025) followed by Dr. Enriquez from [facility] s/p esophageal stent placement (mid-January 2025) at [facility] was
transferred on 03/02/2025 from [facility] to [facility] ER for syncopal episode on 02/25/2025 without prodrome secondary to severe/critical aortic stenosis with hypovolemia. Cardiac catheterization reported nonobstructive coronary disease and preserved
EF of 65-70%.
Hospital course: Patient was taken to the operating room and underwent right transfemoral TAVR #26 mm JOB [address] Juvencio King. Post procedure TTE reported AV mean gradient 5 mmHg, no associated PVL or AI. Patient required low-dose
Levophed in the initial postop period which was quickly weaned off. Initial ECG reported sinus rhythm without block. Right groin dressing had small amount of sanguinous drainage. Patient ambulated in the hallways on the day of surgery. On postop
day #1, ECG again reported sinus rhythm and chest x-ray with that was without acute pulmonary anomaly. Patient was diuresed for a 1 kg weight gain overnight. A TTE reported an EF 59% with AV gradients 10/5mmHg, no AI. Hemoglobin 7.8, Na+ 126 and
creatinine 0.8 on day of discharge. Patient will be followed by transitional nurse and will have CBC/BMP repeated in 1 week. No new medications were added.
Home medication changes:
aspirin for TAVR valve
Discharge Plan
-
Patient Disposition: Home (Routine Discharge)
Discharge Diagnosis/Procedures: cardiac catheterization, R TF-TAVR #26mm Job 3 valve
Condition: Good
Diet: Low Cholesterol
Activity: As tolerated
Driving Restrictions: No driving for 1 week
Bathing Restrictions: OK to Shower
Blood Work: BMP and CBC in 1 week
Others Tests: 30 day follow up echocardiogram: 04/05/2025 at 1:00pm at [facility]
Other Services: Cardiac Rehab
Wound Care: Please do not apply lotions, creams or powders to groin areas. Monitor for increased pain, swelling, redness or drainage. Notify your doctor if any occur.
Specialty Instructions: Weigh Daily- Call MD for wt gain/loss 3 lbs overnight/5 lbs in 1 week
Activity Restrictions/Additional Instructions:
Please call to make appointments for Phase II Cardiac Rehab: (if PT/OT is not needed)
[facility]
[phone]
Stand Alone Forms: DC Instructions- Cath/EP Lab, DC Inst - TransFemoral (TAVR)
Referrals:
CT Transitional Care Nurse [Outside]
Referral Note: The Cardiothoracic Transitional Care Nurse will call you to set up a visit in 1-2 days.
Cathy Holley NP [Specified Professional Personl, Cardiology] - 04/07/25 11:00 am
Referral Note: cancelled 03/27 appointment with Charlene Eaton
Chino Simental MD [Active, Family Practice]
Prescriptions:
New
aspirin 81 mg Tablet,Delayed Release (Dr/Ec)
81 mg PO DAILY Qty: 0 0RF
Continued
tramadol 50 mg tablet
25 - 50 mg PO Q6HPRN PRN (Reason: severe pain/breakthrough pain) Qty: 5 0RF
acetaminophen [Tylenol Extra Strength] 500 mg tablet
1,000 mg PO Q6HPRN PRN (Reason: mild pain) Qty: 1 0RF
ibuprofen 200 mg tablet
400 mg PO Q6HPRN PRN (Reason: moderate pain) Qty: 1 0RF
polyethylene glycol 3350 [Miralax] 17 gram/dose powder
4 g PO DAILY PRN (Reason: Constipation) Qty: 119 0RF
Rx Instructions:
start a laxative such as MIRALAX on day 2 after surgery if no bowel movement yet as long as no nausea/vomiting and passing gas
oxycodone 5 mg capsule
5 mg PO Q4H PRN (Reason: Severe Pain) Qty: 20 0RF
docusate sodium [Colace] 100 mg Capsule
100 mg PO DAILY Qty: 0 0RF
pantoprazole 40 mg Tablet,Delayed Release (Dr/Ec)
40 mg PO BID Qty: 0 0RF
Ener C
1 dose PO DAILY Qty: 0 0RF
Discharge Orders:
Discharge Patient (As Directed); Ordered 03/08/25
Ordered By: Arcelia Natarajan
Care Plan Goals
Care Plan Goals:
Problem: Readiness for enhanced knowledge related to diagnosis and treatment plan
Goal: Understand your diagnosis and treatment plan needs, including medications if applicable.
Instructions: Know your diagnosis, underlying causes and treatment plan options, including medications if applicable. Consult with your health care team to learn about your diagnosis and treatment plan, including medications if applicable.
Discharge Date and Time
Print Language: LUXEMBOURGER
--- NOTE | 2025-03-08 08:45 | PN.CDI ---
CDI
- -
CDI:
Physician Documentation Request
Admit Date: 03/02/25 16:25
Dear Doctor Christos,
Patient admitted for aortic stenosis.
03/07 Nurse Aide Assessment: 'Compared to weight last admission of 154 lbs 09/30, pt with a 12% weight loss in past 5 months, signficiant. During visit RD able to visulize temporal wasting, orbital area sunken in and fat loss of tricepts.
With observed muscle and fat wasting and > 10% weight loss in 6 months pt meets AND/ASPEN criteria for moderate protein calorie malnutrition of chronic illness.'
Based on the above information and your assessment, which of the following most accurately represents the patient's nutritional status?
Moderate protein calorie malnutrition
Other
[place] Criteria (ACP Hospitalist 2017)
2 or more criteria must be present for either
non severe or severe malnutrition
Note that the criteria differs related to the
presence of an acute or chronic illness
Acute Illness Chronic Illness
Energy Intake Non Severe: <75% for >7 days Non Severe: <75% for >1 month
Severe: <50% for >5 days Severe: <75% for >1 month
Weight Loss Non Severe: 1-2% over 1 week Non Severe: 5% over 1 month
5% over 1 month 7.5% over 3 months
7.5% over 3 months 10% over 6 months
1 year N/A 20% over 1 year
Severe: >2% over 1 week Severe: >5% over 1 month
>5% over 1 month >7.5% over 3 months
>7.5% over 3 months >10% over 6 months
1 year N/A >20% over 1 year
Body Fat Non Severe: Mild Decrease Non Severe: Mild Loss
Severe: Moderate Decrease Severe: Severe Loss
Muscle Mass Non Severe: Mild Decrease Non Severe: Mild Loss
Severe: Moderate Decrease Severe: Severe Loss
Fluid Accumulation Non Severe: Mild Accumulation Non Severe: Mild Accumulation
Severe: Moderate to severe Severe: Moderate to severe
accumulation accumulation
Reduced Global Climate Change Researcher Strength Non Severe: N/A Non Severe: N/A
Severe: Measurably reduced Severe: Measurably reduced
Additional criteria that can be used to Determine if Mild or Moderate Malnutrition (Merck Manual 2018)
Mild Moderate Severe
Albumin gm/dl <3.0 gm/dl <2.5 gm/dl <2.0 gm/dl
Pre Albumin mg/dl <15 gm/dl <10 mg/dl <5.0 mg/dl
BMI <18.5 <17 <16
Use of terms such as suspected, likely, concern for, or probable (associated with a specific diagnosis that is being evaluated, monitored, or treated as if it exists) are acceptable and can be coded in the inpatient setting, when documented at the
time of discharge.
Thank you,
Maribel Cardenas RN, BSN
CDI Specialist
Available via [employer] text
Please use your independent medical judgment in providing your response.
[2025-03-08] MEDS: LASIX 40 MG IV (09:40)
[2025-03-08] MEDS: MIRALAX 17 GRAMS PO (09:41)
[2025-03-08] MEDS: ASPIR LOW (ENTERIC COATED) 81 MG PO (09:41)
--- NOTE | 2025-03-08 10:21 | W.PN.CD ---
Today's Communication / Plan
-
-Stable s/p TF TAVR with Pollack Job 3 Ultra Resilia 26 mm valve.
-No heart block on telemetry.
-Follow up Echo today.
Impression / Plan
-
Mr. Vallejo is a 79 year old man with past medical history of known severe and esophageal cancer s/p recent esophageal stenting and currently undergoing chemo under direction of Dr. Gabriel Enriquez. He has been known to have severe for some
time but previously declined TAVR. He recently had worsening gradients (to critical range) and was again recommended to have TAVR evaluation which was delayed in setting of pain from his esophageal stent 5 weeks ago. At that time he remarkably had
no significant symptoms. Unfortunately, a few days ago he had a syncopal episode while walking and received bystander CPR with ROSC (unclear if actually arrested) and was taken to [facility], then transferred here 03/02. No clear etiology of
than hypovolemia coupled with critical .
Critical :
-Stable s/p TF TAVR with Pollack Job 3 Ultra Resilia 26 mm valve.
-No heart block on telemetry.
-Follow up Echo today.
Abnormal troponin => acute nonischemic myocardial injury from severe with syncope
Active esophageal cancer
GERD
Anemia
Hyponatremia
Subjective:
No major events overnight. No cardiac complaints this a.m. Telemetry stable.
Physical Exam
Vital Signs/Labs
Vital Signs
Temp Pulse Resp BP Pulse Ox
97.9 F 79 20 115/68 98
03/08/25 07:05 03/08/25 07:05 03/08/25 07:05 03/08/25 07:05 03/08/25 09:35
03/07/25 03/08/25 03/09/25
06:59 06:59 06:59
Actual Weight 56.9 kg 57.9 kg
03/08/25 03:57
03/08/25 03:57
PT 15.4 Sec (11.4-14.6) H 03/06/25 08:17
INR 1.19 03/06/25 08:17
APTT 81.4 Sec (23.4-35.0) H 03/03/25 08:45
LAB Results
03/05/25
12:56
Troponin I 0.026
Physical Exam
Constitutional: No acute distress and Comfortable
EENT: Anicteric
Cardiovascular: Rhythm & rate is regular, Systolic murmur absent, Pedal edema present (trace to 1+) and S1S2 is normal (1/6)
Respiratory: Respiratory effort normal and Lungs clear to auscul.
GI: Soft
Neuro/Psych: AO x 3
Other: Skin (warm, dry, intact)
Data Reviewed
-
Date of Service: March 08, 2025
EKG: Report Reviewed by me (Telemetry: Sinus rhythm)
Labs: Labs Reviewed by me
[2025-03-08 10:57] VITALS: BP 116/58
[2025-03-08 11:03] VITALS: BP 140/68
[2025-03-08 11:06] VITALS: BP 116/58; BP 140/60; PULSE 88; O2SAT 100; O2SAT 93
[2025-03-08] MEDS: ROXICODONE 10 MG PO (12:04)
[2025-03-08 14:29] VITALS: BP 129/67
--- NOTE | 2025-03-08 16:20 | PTCARENOTE ---
Pt c/o chest discomfort from CPR, good relief stated after receiving 10 mgs of roxycodone. Pt walking without problem, states he is passing urine well. Echo done and reviewed. Pt seen by Arcelia Natarajan NP. Right SQ port IV de-accessed by IV
team. Telemetry and IV device removed. Discharge instructions reviewed with pt regarding activity ands driving restrictions, wound care, medications and their possible side efefect, pain management, reporting cares and concerns and follow up appt's.
Excellent understanding verbalized. Pt escorted out via wheelchair and discharged to home.
== END 2025-03-08 16:30 | disposition home or self-care (01) | DRG 267 ==
LOC: IVU 16:25
PROVIDERS: Internal Medicine Cardiovascular Disease; Nurse Practitioner; Registered Nurse; ADMITTING PHYSICIAN Hospitalist; ATTENDING PHYSICIAN Thoracic Surgery (Cardiothoracic Vascular Surgery); CONSULT PHYSICIAN Student in an Organized Health Care Education/Training Program
PROC: B2111ZZ Fluoroscopy of Multiple Coronary Arteries using Low Osmolar Contrast (ICD-10-PCS; 2025-03-03)
PROC: 4A023N6 Measurement of Cardiac Sampling and Pressure, Right Heart, Percutaneous Approach (ICD-10-PCS; 2025-03-03)
PROC: 02RF38Z Replacement of Aortic Valve with Zooplastic Tissue, Percutaneous Approach (ICD-10-PCS; 2025-03-07)
DX: I35.0 Nonrheumatic aortic (valve) stenosis (principal); Z00.6 Encounter for examination for normal comparison and control in clinical research program; C15.9 Malignant neoplasm of esophagus, unspecified; E87.1 Hypo-osmolality and hyponatremia; I5A Non-ischemic myocardial injury (non-traumatic); E44.0 Moderate protein-calorie malnutrition; I10 Essential (primary) hypertension; K21.9 Gastro-esophageal reflux disease without esophagitis; E78.5 Hyperlipidemia, unspecified; D72.829 Elevated white blood cell count, unspecified; I25.10 Atherosclerotic heart disease of native coronary artery without angina pectoris; E87.70 Fluid overload, unspecified; D64.9 Anemia, unspecified; K59.00 Constipation, unspecified; Z68.20 Body mass index [BMI] 20.0-20.9, adult; Z87.891 Personal history of nicotine dependence; Z86.73 Personal history of transient ischemic attack (TIA), and cerebral infarction without residual deficits
CPT/HCPCS: 33361; 70355; 71045; 74174; 75572; 80048; 80053; 81003; 82570; 83930; 83935; 84133; 84156; 84300; 84443; 84484; 85025; 85027; 85347; 85610; 85730; 86850; 86900; 86901; 86920; 87070; 93005; 93308; 93321; 93325; 93460; 97163; 99152; 99153; C1760; C1769; C1894; Q9967

== ENCOUNTER → 2025-03-29 10:16 | Outpatient (REF) | payer OTHER, SELFPAY | LOC: HWRCS 10:16 | PROVIDERS: ATTENDING PHYSICIAN Internal Medicine; FAMILY PHYSICIAN Family Medicine | DX: Z95.2 Presence of prosthetic heart valve (principal); I35.0 Nonrheumatic aortic (valve) stenosis; I35.1 Nonrheumatic aortic (valve) insufficiency | CPT/HCPCS: 93306 ==

== ENCOUNTER 2025-04-11 15:36 | Inpatient (IN) | payer OTHER, SELFPAY ==
[2025-04-11] VITALS (11 sets, daily range): BP systolic 107–154; BP diastolic 60–104
[2025-04-11] MEDS: NSS 1000 IV (11:38)
[2025-04-11 12:02] LABS: Hematocrit 24.0 % (39.0-52.0); Hemoglobin 8.0 g/dL (13.0-18.0); Mean Corp Hgb Conc. 33.3 g/dL (33.0-37.0); Mean Corpuscular Volume 87.3 fL (80.0-94.0); Platelet Count 79 10^3/uL (130-400); Red Cell Dist. Width 14.2 % (11.5-14.5)
[2025-04-11 12:04] LABS: INR 1.23; PT 15.8 Sec (11.4-14.6)
[2025-04-11 12:09] LABS: ALT (SGPT) 13 U/L (0-50); AST (SGOT) 19 U/L (17-59); Albumin 3.2 g/dl (3.5-5.0); Alkaline Phosphatase 170 U/L (38-126); Blood Urea Nitrogen 14 mg/dl (9-20); Calcium 8.0 mg/dl (8.4-10.2); Carbon Dioxide 27 mmol/L (22-30); Chloride 94 mmol/L (98-107); Estimated Creatinine Clearance 69 ml/min; Glucose 115 mg/dl (70-99); Potassium 3.3 mmol/L (3.5-5.1); Sodium 126 mmol/L (135-145); Total Protein 5.5 g/dl (6.3-8.2); eGFR > 60.00
[2025-04-11 12:49] LABS: Nucleated Red Blood Cells % 0 % (-)
--- NOTE | 2025-04-11 12:59 | ED.GENMED ---
History of Present Illness
General
Chief Complaint: Weakness
Time Seen by Provider: 04/11/25 10:59
History of Present Illness
History of Present Illness:
79-year-old male with history of esophageal cancer on chemotherapy presenting to the emergency department for generally feeling weak and fatigued. Patient notes that he status post a TAVR on 03/07. A few weeks after the procedure, started to feel
fatigued. He then restarted chemotherapy last week. He notes chemotherapy was on , 6 days ago. Yesterday and the day prior, felt very weak to the point where he could not walk on his own. He is requiring assistance at home. Denies focal
weakness. Denies fever. Denies chest pain or difficulty breathing. Denies abdominal pain. Did have some diarrhea, denies any vomiting. Notes that when he was on chemotherapy in the past, usually tolerated it better than currently. Denies
additional acute medical complaints
Past History
Past History
ED Past Medical History: Cancer (esophageal)
ED Past Surgical History: Other (Esophageal stent placed01/23/25)
Phy Exam
Physical Exam
Physical Exam:
General: Well-appearing, slight dryness of mucous membranes
HEENT: protecting airway
Neck: appears supple
CV: Normal heart rate, regular rhythm
Resp: No accessory muscle use, no increased work of breathing, lungs clear to auscultation bilaterally
Abd: Soft and non-distended, no tenderness to palpation
Extremities: No deformities, no swelling
Neuro: alert, no focal neurologic deficit
: deferred
Rectal: deferred
Psych: Normal affect
Skin: Intact
Course
Orders/Labs/Results
Orders:
Orders
04/11/25 10:42
Electrocardiogram (*1) Urgent
Reason for Study: Fatigue / Weakness
04/11/25 10:43
EKG- Treatment ONCE
04/11/25 11:31
0.9% Sodium Chloride 1000 ml [Nss] 1,000 ml IV BOLUS
04/11/25 11:33
Type+Screen Urgent
Complete Blood Count/With Diff Urgent
Comprehensive Metabolic Panel Urgent
Prothrombin Time Urgent
04/11/25 12:30
Heparin Pf [Heparin Lock Flush] 500 unit IV PER PROTOCOL
Abnormal Lab Results
04/11/25
11:33
WBC 19.9 H 10^3/uL
(4.8-10.8)
RBC 2.75 L 10^6/uL
(4.70-6.10)
Hgb 8.0 L g/dL
(13.0-18.0)
Hct 24.0 L %
(39.0-52.0)
Plt Count 79 L 10^3/uL
(130-400)
Abs Immat Gran (auto) 0.4 H 10^3/uL
(0-0.05)
Absolute Neuts (auto) 16.5 H 10^3/uL
(1.4-6.5)
Absolute Lymphs (auto) 0.9 L 10^3/uL
(1.2-3.4)
Absolute Monos (auto) 2.1 H 10^3/uL
(0.1-0.6)
Immature Gran % 2.0 H %
(0-0.5)
Neutrophils % 82.6 H %
(42.2-75.2)
Lymphocytes % 4.3 L %
(20.5-51.1)
Monocytes % 10.5 H %
(1.7-9.3)
PT 15.8 H Sec
(11.4-14.6)
Sodium 126 L mmol/L
(135-145)
Potassium 3.3 L mmol/L
(3.5-5.1)
Chloride 94 L mmol/L
(98-107)
Glucose 115 H mg/dl
(70-99)
Calcium 8.0 L mg/dl
(8.4-10.2)
Total Bilirubin 1.6 H mg/dl
(0.2-1.3)
Alkaline Phosphatase 170 H U/L
(38-126)
Total Protein 5.5 L g/dl
(6.3-8.2)
Albumin 3.2 L g/dl
(3.5-5.0)
04/11/25 11:33
04/11/25 11:33
Vital Signs
Initial and Last Documented VS:
Initial Vital Signs
Pulse Resp BP Pulse Ox
79 20 137/73 99
04/11/25 10:11 04/11/25 10:11 04/11/25 10:11 04/11/25 10:11
Last Documented Vital Signs
Pulse Resp BP Pulse Ox
66 18 137/73 99
04/11/25 11:10 04/11/25 11:10 04/11/25 10:11 04/11/25 11:12
MDM/Problems Addressed
MDM/Problems Addressed:
79-year-old male with history of esophageal cancer on chemotherapy and history of recent TAVR presenting for generalized weakness and fatigue. Vital signs on arrival are normal.
On exam, patient is in no acute distress. Does appear cachectic with dry mucous membranes. Suspect possible underlying dehydration. Otherwise unremarkable cardiac, pulmonary, abdominal exam. Patient afebrile, nontoxic. No focal weakness with
intact strength and sensation to all extremities, without concern for central neurologic process. Ultimately suspect that patient's symptoms are from her recent chemotherapy, particularly in a patient who is already deconditioned from recent
cardiac procedure. Will screen with laboratory analysis and start patient on IV fluids.
13:00 - Labs show anemia, which appears to be at baseline. Also leukocytosis, likely reactive from chemotherapy. Patient is also hyponatremic at 126, acute on chronic. Will discuss with oncology, however patient notes that he is unable to
ambulate at home due to his symptoms, fall risk. Will plan for admission
*Pulse Oximetry
SaO2: 99
Oxygen Mode of Delivery: Room air
Patient hypoxic: no
*EKG
Interpreted by ED Provider?: Yes
EKG Intrepretation Date: 04/11/25
EKG Intrepretation Time: 13:02
Interpretation: normal
Comparison EKG: no changes (03/08/25)
Heart Rate: 71
Rate: normal
Rhythm: sinus
[place]: normal axis
Interval: normal interval
QRS Pattern: normal QRS
Ischemia: no ischemia
*Critical Care Note
Total Time (30-74mins, 75-104mins- exclusive of procedures): Not Applicable
ED Attending Note
-
Portions of this chart may have been created with voice recognition software.� Occasional wrong word or��sound alike� substitutions may have occurred due to the inherent limitations of voice recognition software.
Discharge Plan
Departure
Prescriptions:
No Action
tramadol 50 mg tablet
25 - 50 mg PO Q6HPRN PRN (Reason: severe pain/breakthrough pain) Qty: 5 0RF
acetaminophen [Tylenol Extra Strength] 500 mg tablet
1,000 mg PO Q6HPRN PRN (Reason: mild pain) Qty: 1 0RF
ibuprofen 200 mg tablet
400 mg PO Q6HPRN PRN (Reason: moderate pain) Qty: 1 0RF
polyethylene glycol 3350 [Miralax] 17 gram/dose powder
4 g PO DAILY PRN (Reason: Constipation) Qty: 119 0RF
Rx Instructions:
start a laxative such as MIRALAX on day 2 after surgery if no bowel movement yet as long as no nausea/vomiting and passing gas
oxycodone 5 mg capsule
5 mg PO Q4H PRN (Reason: Severe Pain) Qty: 20 0RF
docusate sodium [Colace] 100 mg Capsule
100 mg PO DAILY Qty: 0 0RF
aspirin 81 mg Tablet,Delayed Release (Dr/Ec)
81 mg PO DAILY Qty: 0 0RF
pantoprazole 40 mg Tablet,Delayed Release (Dr/Ec)
40 mg PO BID Qty: 0 0RF
Ener C
1 dose PO DAILY Qty: 0 0RF
Referrals:
Chino Simental MD [Family Provider, Family Practice]
Interventions
Interventions:
*Risk Screen - Suicide Last Done: 04/11/25 10:11
*General Assessment Last Done: 04/11/25 11:19
*Neglect/Abuse Screening Last Done: 04/11/25 11:19
*ED COVID-19 Vaccine History Last Done: 04/11/25 11:19
*ED Influenza Vaccine History Last Done: 04/11/25 11:19
ED- Cardiac Assessment Last Done: 04/11/25 11:12
ED- Neurological Assessment Last Done: 04/11/25 11:12
ED- Pulmonary Assessment Last Done: 04/11/25 11:12
Discharge Date and Time
Print Language: KYRGYZ
--- NOTE | 2025-04-11 15:21 | HPS.HSE ---
Addendum entered and electronically signed by Latanya Colon MD 04/11/25 20:48:
This is an addendum to H&P written by Kayla Fall. �Patient seen and examined independently with resident.
79-year-old male past medical history of severe aortic stenosis status post recent TAVR 03/07, esophageal cancer status post esophageal stent in January undergoing chemotherapy/radiation, GERD, hypertension, hyperlipidemia, CVA, chronic hyponatremia,
chronic anemia, presenting with weakness and fatigue. �Started feeling fatigue few weeks after the procedure.� Had a fall 2 weeks ago. He restarted chemotherapy last week. �No fever, chest pain or shortness of breath. �No abdominal pain.� No
vomiting. Constipation.�
Patient has baseline chest pain from esophageal stent not improved with oxycodone.�
Vital signs unremarkable.
Labs show leukocytosis of 19.9. �Hemoglobin of 8 which is stable. �Platelets of 79. �Sodium 126 which is chronic. �Potassium 3.3. �EKG shows normal sinus rhythm.
Patient with fatigue, diarrhea and hypokalemia and secondary to deconditioning from recent chemotherapy and TAVR. �Patient with chronic hyponatremia which is stable likely SIADH from malignancy. �Chronic leukocytosis secondary to malignancy. �IV
fluids given. Potassium repletion. Thrombocytopenia from chemotherapy.
PT/OT and evaluation for potential Rehab.�
Original Note:
Family Physician
-
Family Physician: Chino Simental
Chief Complaint
-
Progress fatigue, generalized weakness.
History of Present Illness
Mr. Yoo is an 79-year-old male with PMHx significant for hypertension, hyperlipidemia, CVA, severe aortic stenosis with recent TAVR done on 03/07/2025, stage III esophageal cancer diagnosed in 01/2023 s/p chemoradiation, managed by Dr. Enriquez,
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 Patient was discharged home after TAVR on 03/30 and was advised
to rest for 2 weeks. After his rest., Patient started noticing to have some fatigue with activities, he went back to his part-time work-[employer], and tried to lift a window in one hand while opening the door with other, and patient fell
down losing his balance. He did not have any weakness or fatigue at this time. His fatigue started after his fall, he felt wobbly on his legs with lack of strength, and noticed himself requiring more and more assistance in the subsequent 2 weeks
leading to his ER visit. He also notes that his chemotherapy started after his fall and fatigue started. On Thursday-04/04/2025-he received his chemotherapy through ([facility], and unsure of the other drugs), after which his weakness became
mildly nauseous, without emesis. Yesterday since the evening, patient found himself in chest pain episodes that is more frequent and higher in intensity that would not respond to oxycodone. In the morning he woke up he could not walk at all from
lack of strength in his knees. So he called EMS and arrived to the hospital.
He reports to have been constipated and his last bowel movement was on Thursday in the a.m.
He denies having any focal weakness, paresthesias, perianal numbness, urinary incontinence or urinary retention, and bowel incontinence. He also denies having new onset chest pain (his chest pain was present since he has a procedure done for
esophageal stent placement), fevers, chills, orthopnea, PND, syncope or near syncopal episodes. He describes his chest pain as a sensation of tightness under his diaphragm around his upper abdomen.
Medical History
Past Medical History
Past Medical History: Reports Other (hypertension, hyperlipidemia, CVA, severe aortic stenosis with recent TAVR done on 03/07/2025, stage III esophageal cancer diagnosed in 01/2023 s/p chemoradiation, managed by Dr. Enriquez, recent esophageal stent
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
Past Surgical History: Reports Other (Esophageal stenting-01/23/2025, TAVR-03/07/2025.)
Social History
Tobacco: Former Smoker (1 pack a day for 40 years, quit smoking about 20 years ago.)
Alcohol: Occasional (Drinks in moderation, wine or cocktail.)
Drug: None
Personal:
Living: With Family
Employment: Retired
Family History
Family History: Not pertinent
Allergies / Home Medications
Allergies reflects when Allergies were last updated in [facility].
Home Medications with original date entered in [facility]
Allergy/Medication List:
Allergies
Allergy/AdvReac Type Severity Reaction Status Date / Time
No Known Allergies Allergy Verified 01/27/25 14:53
Home Medications
aspirin 81 mg tablet,delayed release 81 mg PO DAILY Blood clot prevention/tx #0 tabs 03/08/25
omeprazole 40 mg capsule,delayed release 40 mg PO DAILY 04/11/25
oxycodone 5 mg capsule 5 mg PO Q4HPRN PRN Severe Pain 04/11/25
therapeutic multivitamin 1 tab PO DAILY 04/11/25
Review of Systems
-
Constitutional: Reports Fatigue
EENT: Reports No Symptoms
Respiratory: Reports No Symptoms
Cardiac: Reports Chest Pain
Abdomen/GI: Reports Constipated
: Reports No Symptoms
Musculoskeletal: Reports No Symptoms
Skin: Reports No Symptoms
Neurological: Reports Weakness
Endocrine: Reports No Symptoms
Hematologic/Lymphatic: Reports No Symptoms
Physical Exam
Vital Signs
Vital Signs
Pulse Resp BP Pulse Ox
78 9 138/71 99
04/11/25 13:47 04/11/25 13:30 04/11/25 13:00 04/11/25 13:01
Physical Exam
General: Appears in Distress and Cachectic
HEENT: NormoCephalic, Anicteric and Moist mucous membranes
Cardiac: S1/S2, Regular Rhythm and Murmur (Systolic 2/6); No Rub or Gallop
GI: Soft, Non Tender, Non Distended, Normal Bowel Sounds and Other (Palpable stool burden in the LLQ)
Genito-urinary: Deferred by me
Musculoskeletal: No Clubbing, No Cyanosis, Edema, Left Lower Extremity (1+ up to the knees) and Edema, Right Lower Extremity (1+ up to the knees)
Skin: Warm
Neuro: AO x 3 and No Motor Deficits
Psych: Calm
Laboratory Results
-
04/11/25 11:33
04/11/25 11:33
Laboratory Results
PT 15.8 Sec (11.4-14.6) H 04/11/25 11:33
INR 1.23 04/11/25 11:33
Total Bilirubin 1.6 mg/dl (0.2-1.3) H 04/11/25 11:33
AST 19 U/L (17-59) 04/11/25 11:33
ALT 13 U/L (0-50) 04/11/25 11:33
Alkaline Phosphatase 170 U/L (38-126) H 04/11/25 11:33
Data Reviewed
-
Medical Tests (Nuc Med, Echo, EKG etc): Image Personally Visualized and interpreted, Report Reviewed by me and Discussed with Patient
Lab Data: Labs Reviewed by me, Discussed with Physician and Discussed with Patient
Impression/Plan
-
IMPRESSION: Mr. Yoo is a 79-year-old male with PMHx significant for hypertension, hyperlipidemia, CVA, severe aortic stenosis with recent TAVR done on 03/07/2025, stage III esophageal cancer diagnosed in 01/2023 s/p chemoradiation, managed by
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 He is being admitted
to the hospital for ambulatory dysfunction.
PLAN:
# Ambulatory dysfunction-
Likely a confluence of deconditioning, hyponatremia, chemotherapy.
PT and OT consulted, fall precautions.
S/p TAVR. Optimal pain management with oxycodone.
Opioid-induced constipation, continue bowel regimen.
# Hyponatremia-
Chronic, currently appears to be stable
Appears to be from SIADH secondary to malignancy.
Similar serum sodium levels for 2 months 126-129.
4 g sodium diet with fluid restriction, monitor for serum sodium improvement
# Hypokalemia-
Serum potassium correction.
Trend serum potassium levels.
# Leukocytosis-
Chronic, since February, with left shift.
Likely secondary to malignancy, reactive
# Thrombocytopenia-likely secondary to chemotherapy
# Essential hypertension-
Not on any medications
# Anemia of chronic disease-
Hemoglobin at 8.0, MCV normal
Likely from recurrent malignancies and nonobstructive CAD-chronic diseases.
Monitor H&H daily.
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
Hypertension
Hyperlipidemia-
CVA
Severe aortic stenosis s/p recent TAVR
Stage III cervical cancer
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
Nonobstructive CAD
GERD
# DVT prophylaxis-
Lovenox
# CODE STATUS-DNR.
[2025-04-11] MEDS: KCL 40 MEQ PO (18:20)
[2025-04-11] MEDS: ROXICODONE 10 MG PO ×2 (18:28→23:38)
--- NOTE | 2025-04-11 19:24 | PTCARENOTE ---
Pt received from day shift RN at 1915. Pt AAOx3, VSS, and complains of moderate pain at this time. Pt receptive to room and call lantigua. Pt bed in lowest position and call lantigua within reach. Pt educated on importance of call lantigua usage, pt relays
understanding and cooperation. Will continue with current plan of care.
[2025-04-11] MEDS: HEPARIN 5000 UNITS SC (19:47)
[2025-04-12 03:36] VITALS: BP 138/76
[2025-04-12] MEDS: ROXICODONE 10 MG PO ×4 (03:48→16:56)
[2025-04-12 06:32] LABS: Hematocrit 23.4 % (39.0-52.0); Hemoglobin 7.9 g/dL (13.0-18.0); Mean Corp Hgb Conc. 33.8 g/dL (33.0-37.0); Mean Corpuscular Volume 88.3 fL (80.0-94.0); Platelet Count 94 10^3/uL (130-400); Red Cell Dist. Width 14.3 % (11.5-14.5)
[2025-04-12 06:51] LABS: ALT (SGPT) 12 U/L (0-50); AST (SGOT) 18 U/L (17-59); Albumin 2.9 g/dl (3.5-5.0); Alkaline Phosphatase 143 U/L (38-126); Blood Urea Nitrogen 13 mg/dl (9-20); Calcium 7.9 mg/dl (8.4-10.2); Carbon Dioxide 27 mmol/L (22-30); Chloride 101 mmol/L (98-107); Estimated Creatinine Clearance 69 ml/min; Glucose 115 mg/dl (70-99); Potassium 4.2 mmol/L (3.5-5.1); Sodium 129 mmol/L (135-145); Total Protein 5.0 g/dl (6.3-8.2); eGFR > 60.00
[2025-04-12 07:29] LABS: Nucleated Red Blood Cells % 0 % (-)
[2025-04-12 07:45] VITALS: BP 140/74
[2025-04-12] MEDS: PROTONIX 40 MG PO (08:00)
[2025-04-12] MEDS: ASPIR LOW (ENTERIC COATED) 81 MG PO (08:00)
[2025-04-12] MEDS: HEPARIN 5000 UNITS SC (08:00)
[2025-04-12] MEDS: MIRALAX 17 GRAMS PO (08:00)
[2025-04-12 11:45] VITALS: BP 139/65
--- NOTE | 2025-04-12 12:56 | CM ---
Addendum entered by Roxann García 04/12/25 14:38:
Patient is for discharge to home today physical therapy are recommending home care, IMM completed on 04/11/25, options reviewed and patient has selected [facility], referral sent to [facility].
Plan; Home with [facility].
Original Note:
Patient was admitted with ambulatory dysfunction, PT/OT ordered. advertising account manager reviewed patient's chart and met with patient and patient lives with his spouse in a 2 story home with one step to enter, patient was independent with adl's and
ambulation, no dme, patient drives.
PCP: Dr. Suggs
Pharmacy: [facility]
--- NOTE | 2025-04-12 13:32 | W.PN.HOSP.TC ---
Today's Communication/Plan
-
Monitor vital signs see plan
Awaiting PT/OT evaluation
Discharge today if cleared by PT/OT
Assessment / Plan
Assessment / Plan
Ambulatory dysfunction-
Likely a confluence of deconditioning, hyponatremia, chemotherapy.
PT and OT consulted, fall precautions. If cleared by PT/OT then likely discharge
S/p TAVR. Optimal pain management with oxycodone.
Opioid-induced constipation, continue bowel regimen
esophageal cancer status post esophageal stent in January undergoing chemotherapy/radiation
Follows up with Dr. Enriquez, monitor
Hyponatremia-
Chronic, currently appears to be stable
Appears to be from SIADH secondary to malignancy.
Similar serum sodium levels for 2 months 126-129.
Continue with fluid restriction
Hypokalemia
Improved
Leukocytosis-
Chronic, since February, with left shift.
Likely secondary to malignancy, reactive
Recently received Neulasta
Thrombocytopenia-likely secondary to chemotherapy
Essential hypertension
Not on any medications
Anemia of chronic disease-
Hemoglobin at 8.0, MCV normal
Likely from recurrent malignancies and nonobstructive CAD-chronic diseases.
Monitor H&H daily.
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
Hypertension
Hyperlipidemia-
CVA
Severe aortic stenosis s/p recent TAVR
Stage III cervical cancer
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
Nonobstructive CAD
GERD
DVT prophylaxis-
Lovenox
CODE STATUS-DNR
General: Appears in Distress and Cachectic
HEENT: NormoCephalic, Anicteric and Moist mucous membranes
Cardiac: S1/S2, Regular Rhythm and Murmur (Systolic 2/6); No Rub or Gallop
GI: Soft, Non Tender, Non Distended, Normal Bowel Sounds
Musculoskeletal: No Clubbing, No Cyanosis, Edema, Left Lower Extremity (1+ up to the knees) and Edema, Right Lower Extremity (1+ up to the knees)
Neuro: AO x 3 and No Motor Deficits
Psych: Calm
Anticipated Discharge: Today
Subjective/Interval History
-
Date of Service: April 12, 2025
denies pain
Objective Data
-
Labs:
Laboratory Results
04/12/25
05:58
WBC 22.6 H
Hgb 7.9 L
Hct 23.4 L
Plt Count 94 L
Sodium 129 L
Potassium 4.2 D
Chloride 101
Carbon Dioxide 27
BUN 13
Creatinine 0.7
Glucose 115 H
Calcium 7.9 L
Total Bilirubin 1.2
AST 18
ALT 12
Alkaline Phosphatase 143 H
Vital Signs:
Vital Signs
Temp Pulse Resp BP Pulse Ox
98.2 F 73 16 139/65 100
04/12/25 11:45 04/12/25 11:45 04/12/25 11:45 04/12/25 11:45 04/12/25 11:45
I&O
04/11/25 04/12/25 04/13/25
06:59 06:59 06:59
Output Total 300 / 300
Balance -300 / -300
[2025-04-12 13:59] VITALS: BP 139/65; PULSE 73; O2SAT 100
--- NOTE | 2025-04-12 14:17 | W.DCSUMMARY ---
Discharge Summary
Discharge Data
Date of Admission: 04/11/25
Date of Discharge: 04/12/25
-
Pending Results: No
Hospital Course
79-year-old male with past medical history of essential hypertension, hyponatremia, anemia of chronic disease, CVA, severe aortic stenosis status post TAVR, history of cervical cancer, CAD, GERD, history of esophageal cancer with stent came to the
hospital with fatigue and weakness consistent with ambulatory dysfunction. Patient symptoms were likely thought was secondary to deconditioning along with ongoing treatment with chemotherapy. Patient was evaluated by physical therapy who
recommended home health. Over time patient symptoms continue to improve and he was discharged home with instructions to follow-up with all his physicians outpatient.
Discharge Plan
-
Patient Disposition: Home (Routine Discharge)
Discharge Diagnosis/Procedures: Ambulatory dysfunction
Hyponatremia
Dysphagia cancer
Hypokalemia
Leukocytosis
Diet: As tolerated and Other diet
Additional Diets: 50 ounce fluid restriction
Activity: As tolerated
Driving Restrictions: As prior to admission
Bathing Restrictions: None
Blood Work: CBC and BMP next week with primary care provider
Referrals:
Gabriel Enriquez DO [Active, Hematology / Oncology]
Chino Simental MD [Family Provider, [facility][1]] - in less than 1 week
Prescriptions:
New
polyethylene glycol 3350 17 gram Powder In Packet
17 g PO DAILY Qty: 0 0RF
Continued
aspirin 81 mg Tablet,Delayed Release (Dr/Ec)
81 mg PO DAILY Qty: 0 0RF
therapeutic multivitamin Tablet
1 tab PO DAILY
omeprazole 40 mg Capsule,Delayed Release(Dr/Ec)
40 mg PO DAILY
oxycodone 5 mg capsule
5 mg PO Q4HPRN PRN (Reason: Severe Pain)
Discharge Orders:
Discharge Patient (As Directed); Ordered 04/12/25
Ordered By: Umair Calderon
Discharge Date and Time
Discharge Date/Time: 04/12/25 20:00
Print Language: TURKISH
--- NOTE | 2025-04-12 15:04 | VNURNOTE ---
Addendum entered by Lavinia Fournier RN 04/13/25 08:12:
Rec'ed confirmation from [place] at [facility] that Dr Enriquez will sign for [facility] in the community. Digna in [facility] Intake updated.
Original Note:
Home Health Liaison met with patient at bedside to discuss [facility] nurse/therapy, visits, schedule and homebound status. Patient is agreeable and understands that visits at home will be 2-3 x per week to assess and teach medical management. Patient
is aware that [facility] will contact them for start of care early next week. Provided contact number for [facility].
Inquired about pt's PCP. Patient stated he has not seen Dr Suggs in > 2 years. He did not seem enthusiastic to make a follow up appt with him. He stated [facility] Dr Enriquez 'handles everything.' Explained that pt would need to establish a PCP prior
to HH starting. Pt insisted that Dr Enriquez will handle his care. This author agreed to call [facility] to see if they will sign for [facility] services.
PM [facility] referral completed in [facility]. Acceptance pending a signing Dr in the community.
[2025-04-12 15:45] VITALS: BP 135/74
[2025-04-12 19:51] VITALS: BP 125/73
== END 2025-04-12 20:00 | disposition home health service (06) | DRG 644 ==
LOC: 4 WEST ACU 15:36
PROVIDERS: Student in an Organized Health Care Education/Training Program; ADMITTING PHYSICIAN Hospitalist; ATTENDING PHYSICIAN Internal Medicine; EMERGENCY PHYSICIAN Student in an Organized Health Care Education/Training Program; FAMILY PHYSICIAN Family Medicine
DX: E22.2 Syndrome of inappropriate secretion of antidiuretic hormone (principal); C15.9 Malignant neoplasm of esophagus, unspecified; E87.6 Hypokalemia; D72.829 Elevated white blood cell count, unspecified; I10 Essential (primary) hypertension; K21.9 Gastro-esophageal reflux disease without esophagitis; I25.10 Atherosclerotic heart disease of native coronary artery without angina pectoris; Z95.2 Presence of prosthetic heart valve; T40.2X5A Adverse effect of other opioids, initial encounter; K59.03 Drug induced constipation; T45.1X5A Adverse effect of antineoplastic and immunosuppressive drugs, initial encounter; D69.59 Other secondary thrombocytopenia; D63.0 Anemia in neoplastic disease; E78.5 Hyperlipidemia, unspecified; I35.0 Nonrheumatic aortic (valve) stenosis; Z66 Do not resuscitate; Z86.73 Personal history of transient ischemic attack (TIA), and cerebral infarction without residual deficits; Z87.891 Personal history of nicotine dependence; Z92.3 Personal history of irradiation
CPT/HCPCS: 80053; 85025; 85610; 86850; 86900; 86901; 93005; 96361; 96374; 97163; 97166; 99284

== ENCOUNTER → 2025-05-09 15:08 | Outpatient (REF) | payer OTHER, SELFPAY | LOC: RAD 15:08 | PROVIDERS: ATTENDING PHYSICIAN Internal Medicine Hematology & Oncology; FAMILY PHYSICIAN Family Medicine | DX: M79.661 Pain in right lower leg (principal); M79.605 Pain in left leg | CPT/HCPCS: 93970 ==

== ENCOUNTER 2025-05-31 15:29 | Outpatient (RCR) | payer OTHER, SELFPAY | END 2025-05-31 23:59 | disposition home or self-care (01) | LOC: CRHB 15:29 | PROVIDERS: ATTENDING PHYSICIAN Internal Medicine | DX: Z95.4 Presence of other heart-valve replacement (principal) | CPT/HCPCS: G0422; G0423 ==

== ENCOUNTER 2025-06-06 20:53 | Inpatient (IN) | payer OTHER, SELFPAY ==
[2025-06-06] VITALS (10 sets, daily range): BP systolic 124–152; BP diastolic 69–107; BMI 23.5; BMI 21.7
[2025-06-06 17:31] LABS: Hematocrit 16.3 % (39.0-52.0); Hemoglobin 5.2 g/dL (13.0-18.0); Mean Corp Hgb Conc. 31.9 g/dL (33.0-37.0); Mean Corpuscular Volume 83.2 fL (80.0-94.0); Nucleated Red Blood Cells % 0 % (-); Platelet Count 161 10^3/uL (130-400); Red Cell Dist. Width 14.8 % (11.5-14.5)
[2025-06-06 17:44] LABS: ALT (SGPT) 12 U/L (0-50); AST (SGOT) 20 U/L (17-59); Albumin 2.9 g/dl (3.5-5.0); Alkaline Phosphatase 104 U/L (38-126); Blood Urea Nitrogen 22 mg/dl (9-20); Calcium 8.0 mg/dl (8.4-10.2); Carbon Dioxide 29 mmol/L (22-30); Chloride 98 mmol/L (98-107); Glucose 124 mg/dl (70-99); Lipase 27 U/L (23-300); Potassium 4.0 mmol/L (3.5-5.1); Sodium 128 mmol/L (135-145); Total Protein 5.3 g/dl (6.3-8.2); eGFR > 60.00
[2025-06-06 17:54] LABS: Troponin I < 0.012 ng/ml
--- NOTE | 2025-06-06 19:14 | ED.GENMED ---
History of Present Illness
General
Chief Complaint: Weakness
Time Seen by Provider: 06/06/25 18:49
History of Present Illness
History of Present Illness:
FOCUSED PAST MEDICAL HISTORY
- Esophageal cancer
REVIEW OF OLD RECORDS
- I reviewed [facility] EGD report from January 2025:
'Findings:
A large, fungating and ulcerating mass was found in the distal esophagus
(starting 34 cm from the incisors and extending to the GEJ located at 42
cm from the incisors). The mass was almost completely obstructing and
circumferential. The epicenter of the tumor was in the distal esophagus.
This was stented with a 23 mm x 10.5 cm WallFlex covered stent under
fluoroscopic guidance, distal margin extending into the gastric cardia.
The stent was secured with two endoscopic sutures at the proximal end.
The stent was in good position.
The entire examined stomach was normal.
The examined duodenum was normal.
Impression: - Partially obstructing, malignant esophageal tumor
was found in the distal esophagus. Esophageal stent
placed. Two endoscopic sutures placed at proximal end
to secure the stent.
- Normal stomach.
- Normal examined duodenum.
- No specimens collected.
Recommendation: - Return to referring provider as previously scheduled.
- Clear liquid diet today and then advance to 'stent
diet' as tolerated.
- Start Omeprazole 40 mg daily.
- Return to endoscopist as needed for stent management
pending clinical course.'
Note:
CHIEF COMPLAINT(S)
Severe gastrointestinal (GI) symptoms and significant fatigue due to anemia.
HISTORY OF PRESENT ILLNESS
The patient is an 79-year-old male with a history of esophageal cancer currently in remission. He presents with ongoing severe gastrointestinal symptoms over the past three weeks, including constipation, occasional diarrhea, and painful defecation,
which has been significantly debilitating. The patient reports spending considerable time on the toilet without relief and notes no visible blood in the stool, which appears brown. He describes the pain as intense, with bowel movements occurring
every four to five days and causing extreme discomfort.
He recently attended a consultation with Dr. Enriquez, who observed the patient appeared unusually pale and suggested a blood transfusion due to anemia. The patients hemoglobin level is critically low at 5.2 g/dL, a decrease from previous measurements
in the high sevens or low eights. Despite significant fatigue and weakness, the patient was sent home, resulting in prolonged discomfort before presenting to this facility.
PAST MEDICAL AND SURGICAL HISTORY
The patient has a history of esophageal cancer, for which he underwent chemotherapy, radiation therapy, and subsequent placement of an esophageal stent on January 23, 2023. The cancer was localized, and recent imaging (PET scan two months ago) did not
reveal metastasis.
SOCIAL DETERMINANTS AFFECTING HEALTH
The patient has been attempting to secure a gastrointestinal specialist consultation since November without success, indicating possible systemic barriers in accessing timely specialty care.
PHYSICAL EXAM
General: The patient appears chronically ill and fatigued.
Skin: Appears pale
Abdomen: The abdomen is non-tender to palpation and not distended. Patient refuses rectal examination
Rectal Exam: Not performed at the patients refusal.
Neurological: The patient awake and alert moving all extremities equally
Psychiatric: Appears angry at times and upset.
PROBLEM LIST
Acute Problems:
1. Anemia (severe, with hemoglobin at 5.2 g/dL)
2. Gastrointestinal discomfort and painful defecation
Chronic Problems:
1. Esophageal cancer
PLAN
1. Administer a blood transfusion to address severe anemia.
2. Admit the patient to the hospital for further evaluation and management.
3. Arrange gastrointestinal specialist consultation to evaluate persistent GI symptoms.
4. Monitor for transfusion reactions, considering the patients first time receiving a transfusion.
DIFFERENTIAL DIAGNOSIS
The Differential Diagnosis includes, in no particular order and is not limited to:
1. Gastrointestinal bleeding (occult)
2. Colorectal cancer
3. Diverticulosis
4. Peptic ulcer disease
5. Inflammatory bowel disease
6. Esophageal stricture or ulceration
7. Hemorrhoids
8. Iron-deficiency anemia secondary to chronic illness
9. Side effects from long-term opioid use (e.g., constipation, as the patient is on oxycodone)
10. Renal insufficiency due to chronic disease or medications.
EKG
- Sinus 86, normal axis, nonspecific ST abnormality
LABS
- Hemoglobin 5.2, BUN 22
UPDATE
- I discussed case with Dr. Bahena who suspects symptoms related to esophageal malignancy
- She also recommends PPI twice daily
- I have ordered blood transfusion
- Patient does report pain however states this is chronic since this past summer he also has chronic constipation
- He has been having trouble getting into see GI as an outpatient
DIAGNOSIS
Symptomatic anemia
Past History
Past History
ED Past Medical History: Cancer (esophageal)
ED Past Surgical History: Other (Esophageal stent placed01/23/25)
Phy Exam
Physical Exam
Physical Exam:
See HPI
Sepsis
Sepsis Screening
Sepsis Assessment: Sepsis Ruled Out
Sepsis Screen
Sepsis Screen: Sepsis Ruled Out
Date: 06/06/25
Time: 20:00
Course
Orders/Labs/Results
Orders:
Orders
06/06/25 17:01
Electrocardiogram (*1) Urgent
Reason for Study: Chest Pain
EKG- Treatment ONCE
06/06/25 17:09
Complete Blood Count/With Diff Urgent
Comprehensive Metabolic Panel Urgent
Ferritin Urgent
Comment: ADD ON
Iron Urgent
Comment: ADD ON
Lipase Urgent
Total Iron Binding Urgent
Comment: ADD ON
Troponin I Urgent
06/06/25 18:39
Type+Screen Urgent
06/06/25 19:10
Add On- LAB Urgent
Tests Added?: iron, TIBC, ferritin
06/06/25 19:22
Pantoprazole [Protonix IV] 80 mg IV NOW STA
06/06/25 19:42
HYDROmorphone [Dilaudid] 1 mg IV NOW STA
Ondansetron Injectable [Zofran] 4 mg IV NOW STA
Abnormal Lab Results
06/06/25
17:09
RBC 1.96 L 10^6/uL
(4.70-6.10)
Hgb 5.2 L* g/dL
(13.0-18.0)
Hct 16.3 L* %
(39.0-52.0)
MCH 26.5 L pg
(27.0-31.0)
MCHC 31.9 L g/dL
(33.0-37.0)
RDW 14.8 H %
(11.5-14.5)
Absolute Lymphs (auto) 0.8 L 10^3/uL
(1.2-3.4)
Lymphocytes % 16.2 L %
(20.5-51.1)
Sodium 128 L mmol/L
(135-145)
BUN 22 H mg/dl
(9-20)
Glucose 124 H mg/dl
(70-99)
Calcium 8.0 L mg/dl
(8.4-10.2)
Iron 28 L ug/dl
(49-181)
Total Protein 5.3 L g/dl
(6.3-8.2)
Albumin 2.9 L g/dl
(3.5-5.0)
06/06/25 17:09
06/06/25 17:09
Vital Signs
Initial and Last Documented VS:
Initial Vital Signs
Temp Pulse Resp BP Pulse Ox
36.9 C 91 20 132/69 100
06/06/25 16:56 06/06/25 16:56 06/06/25 16:56 06/06/25 16:56 06/06/25 16:56
Last Documented Vital Signs
Temp Pulse Resp BP Pulse Ox
36.9 C 81 20 152/87 99
06/06/25 16:56 06/06/25 19:45 06/06/25 19:45 06/06/25 19:29 06/06/25 19:45
*Pulse Oximetry
SaO2: 100
Oxygen Mode of Delivery: Room air
Patient hypoxic: no
*Critical Care Note
Total Time (30-74mins, 75-104mins- exclusive of procedures): Not Applicable
ED Attending Note
-
Portions of this chart may have been created with voice recognition software.� Occasional wrong word or��sound alike� substitutions may have occurred due to the inherent limitations of voice recognition software.
Discharge Plan
Departure
Patient Disposition: Admit
Date of Disposition: 06/06/25
Time of Disposition: 19:22
Presentation/result/management discussed w/ accepting MD/DO: Hospitalist
Discharge Problem:
Anemia
Prescriptions:
No Action
aspirin 81 mg Tablet,Delayed Release (Dr/Ec)
81 mg PO DAILY Qty: 0 0RF
therapeutic multivitamin Tablet
1 tab PO DAILY
omeprazole 40 mg Capsule,Delayed Release(Dr/Ec)
40 mg PO DAILY
oxycodone 5 mg capsule
5 mg PO Q4HPRN PRN (Reason: Severe Pain)
polyethylene glycol 3350 17 gram Powder In Packet
17 g PO DAILY Qty: 0 0RF
Referrals:
Chino Simental MD [Family Provider, Family Practice]
Interventions
Interventions:
*Risk Screen - Suicide Last Done: 06/06/25 16:56
*General Assessment Last Done: 06/06/25 16:56
*Neglect/Abuse Screening Last Done: 06/06/25 16:56
[facility] Risk Assessment Tool Last Done: 06/06/25 18:00
ED- Cardiac Assessment Last Done: 06/06/25 18:44
ED- Neurological Assessment Last Done: 06/06/25 18:44
ED- Pulmonary Assessment Last Done: 06/06/25 18:44
Discharge Date and Time
Print Language: SINHALA
[2025-06-06] MEDS: PROTONIX IV 80 MG IV (19:30)
[2025-06-06] MEDS: ZOFRAN 4 MG IV (19:46)
[2025-06-06] MEDS: DILAUDID 1 MG IV (19:46)
[2025-06-06 19:55] LABS: Iron 28 ug/dl (49-181)
[2025-06-06 20:05] LABS: Total Iron Binding Capacity 208 ug/dl (261-462)
[2025-06-06 20:31] LABS: Ferritin 87.7 ng/ml (17.9-464.0)
--- NOTE | 2025-06-06 20:40 | HPS.HSE ---
Family Physician
-
Family Physician: Chino Simental
Chief Complaint
-
Fatigue
History of Present Illness
Patient is an 79y M with PMH significant for ASCVD, s/p TAVR and esophageal cancer who presents to ED complaining of weakness / fatigue. Patient states that he has chronic pain from esophageal stent (placed January 2025). He is on oxycodone for
pain control and has issues with constipation as a result. For the past 3 weeks, he has had particularly difficult bowel movements. He states that stools have been brown - not black and no gross blood noted. He complains of mid-abdominal pain
following bowel movements that has become more severe and takes longer to resolve. Patient notes that he woke around 5 AM today to urinate and he felt fairly normal.
He woke again around 8:30 AM and felt extremely fatigued. He went to a previously scheduled doctor's appointment and was advised that he appeared pale. Labs were ordered at that time to be done at a future date.
Patient went home, took a long nap and when he woke around 4PM he felt even more fatigued. He could hardly stand. He presented to the ED for further evaluation.
Patient denies any headache, chest pain, SOB. He has mild nausea with no emesis.
Medical History
Past Medical History
Past Medical History: Reports Other
Additional Past Medical History:
Esophageal Cancer s/p Chemo and Stenting
ASCVD / Prior CVA
Severe Aortic Stenosis s/p TAVR
SIADH / Chronic Hyponatremia
Anemia of Chronic Disease
Past Surgical History: Reports Other
Additional Past Surgical History:
Esophageal Stent (January 2025)
TAVR (March 2025)
Hernia repair
Social History
Tobacco: Former Smoker (Quit smoking 20y ago.)
Alcohol: Occasional
Drug: None
Personal:
Living: With Family
Family History
Family History: Not pertinent
Allergies / Home Medications
Allergies reflects when Allergies were last updated in [facility].
Home Medications with original date entered in [facility]
Allergy/Medication List:
Allergies
Allergy/AdvReac Type Severity Reaction Status Date / Time
No Known Allergies Allergy Verified 06/06/25 17:00
Home Medications
aspirin 81 mg tablet,delayed release 81 mg PO DAILY Blood clot prevention/tx #0 tabs 03/08/25
omeprazole 40 mg capsule,delayed release 40 mg PO DAILY Gastrointestinal Issue 04/11/25
oxycodone 5 mg capsule 5 mg PO Q4HPRN PRN Severe Pain 04/11/25
therapeutic multivitamin 1 tab PO DAILY Supplement 04/11/25
polyethylene glycol 3350 17 gram oral powder packet 17 g PO DAILY #0 ea 04/12/25
Review of Systems
-
History Source: Patient
A 12 point ROS was completed and negative except as noted: Yes
Constitutional: Reports Fatigue; Denies Fever or Chills
EENT: Denies Sore Throat
Respiratory: Denies Cough or Trouble Breathing
Cardiac: Reports Chest Pain; Denies Palpitations
Abdomen/GI: Reports Abdominal Pain, Nausea and Constipated; Denies Vomiting, Diarrhea, Bloody Stools or Black Stools
: Denies Dysuria or Frequency
Musculoskeletal: Reports Edema; Denies Joint Pain
Neurological: Reports Weakness; Denies Dizzy or Headache
Psych: Denies Depression or Anxiety
Physical Exam
Vital Signs
Vital Signs
Temp Pulse Resp BP Pulse Ox
98.4 F 81 20 152/87 99
06/06/25 16:56 06/06/25 19:45 06/06/25 19:45 06/06/25 19:29 06/06/25 19:45
Physical Exam
General: Other (Pale-appearing 79y M in no acute distress.)
HEENT: Moist mucous membranes and PERRLA
Respiratory: Clear; No Wheezes, Rales or Rhonchi
Cardiac: S1/S2 and Regular Rhythm; No Murmur
GI: Soft, Non Distended, Normal Bowel Sounds and Other (Mild upper abdominal tenderness. Pos BS. No rebound / guarding.)
Musculoskeletal: No Clubbing, No Cyanosis and Other (Skin changes of b/l LE suggestive of significant previous edema - now improving.)
Neuro: AO x 3
Laboratory Results
-
06/06/25 17:09
06/06/25 17:09
Laboratory Results
Total Bilirubin 0.9 mg/dl (0.2-1.3) 06/06/25 17:09
AST 20 U/L (17-59) 06/06/25 17:09
ALT 12 U/L (0-50) 06/06/25 17:09
Alkaline Phosphatase 104 U/L (38-126) 06/06/25 17:09
Troponin I < 0.012 ng/ml 06/06/25 17:09
Lipase 27 U/L (23-300) 06/06/25 17:09
Impression/Plan
-
A/P: Patient is an 79y M with PMH significant for esophageal cancer s/p stent, s/p TAVR and prior CVA who presents to ED complaining of weakness and fatigue.
Symptomatic Anemia
Acute Blood Loss Anemia on Anemia of Chronic Disease
Presumed GI Blood Loss
- Admit for further evaluation and treatment.
- Hgb = 5.2 compared to baseline around 8 g/dL.
- No gross bleeding or melena noted - but recent issues with abdominal pain / constipation and known esophageal stent.
- Transfuse 2 units PRBCs now.
- IV PPI BID.
- GI evaluation for additional evaluation / recommendations.
- Bleeding potentially related to metal esophageal stent.
Esophageal Cancer
- Stent placed in January 2025. Last chemo 6 weeks ago - currently on hold.
- PET / CT done 05/03 showed esophageal enhancement around the stent but no other active areas.
- Follow-up with oncology as an outpatient as scheduled.
ASCVD / Prior CVA
- Hold ASA acutely given blood loss / symptomatic anemia.
Severe s/p TAVR
- Stable. LE edema appears to be improving from prior.
- Follow I/Os, daily weights, etc.
SIADH / Chronic Hyponatremia
- Stable. Follow for changes.
DVT Prophylaxis: SCDs
Code Status: DNR
[2025-06-06] MEDS: DILAUDID 0.5 MG IV (22:07)
[2025-06-06] MEDS: ROXICODONE 5 MG PO (23:36)
[2025-06-07] VITALS (10 sets, daily range): BP systolic 122–154; BP diastolic 67–79; PULSE 84
[2025-06-07] MEDS: DILAUDID 0.5 MG IV (01:57)
--- NOTE | 2025-06-07 03:26 | W.PN.UPDATE ---
Update Note
Progress Note Update
Pt taking 10mg oxy q4hr prn esophageal pain which works good for him. He would rather not use dilaudid iv and use the oxy instead. PDMP verified. Medication updated.
[2025-06-07] MEDS: ROXICODONE 10 MG PO ×3 (03:33→09:34)
[2025-06-07 08:04] LABS: INR 1.24; PT 15.4 Sec (11.4-14.6)
[2025-06-07 08:05] LABS: APTT 33.0 Sec (23.4-35.0)
[2025-06-07 08:11] LABS: Hematocrit 23.5 % (39.0-52.0); Hemoglobin 7.9 g/dL (13.0-18.0); Mean Corp Hgb Conc. 33.6 g/dL (33.0-37.0); Mean Corpuscular Volume 85.8 fL (80.0-94.0); Platelet Count 141 10^3/uL (130-400); Red Cell Dist. Width 14.6 % (11.5-14.5)
--- NOTE | 2025-06-07 08:30 | CON.GI ---
Addendum entered and electronically signed by Chinedu Manuel MD 06/07/25 14:49:
The patient was seen and examined by me independently in collaboration with the nurse practitioner.
Past medical history/social history/medications/allergies/family history reviewed.
Lab data and imaging data reviewed.
This is an 79-year-old male past medical history of esophageal cancer with stenting in January 2025 who was initially admitted with esophageal cancer in 2022 and had chemo and radiation. He developed dysphagia in 2024 and had an esophageal stent
placed at [facility] which showed a partially obstructing malignant esophageal tumor. He had a PET scan in April which showed severe wall thickening and increase FDG uptake in the esophagus which could represent recurrence versus esophagitis. Patient
is now admitted with a hemoglobin of 5.2 as well as constipation. D/w onc and rad onc. Plan for endoscopy tomorrow to assess to see if this is due to esophagitis and esophageal ulcers from radiation versus recurrence. This would alter treatment.
If he does have recurrence, he may benefit from radiation. We need to ensure his sodium is improved over 130 prior to endoscopy. Risk, alternatives, benefits of endoscopy discussed with patient risks including but not limited to bleeding,
infection, perforation. If needed, Dr. Lima will be next-door given the fact that I do not place esophageal stents. Patient will need bowel regimen for his constipation. May benefit from [facility] outpatient given his narcotic use.
Original Note:
Consultation
-
Date/Time Consultation Requested: 06/06/252219
Date/Time Consultation Performed: 06/06/2530
Requesting Provider: Dung Scott DO
Performing Provider: ZACHARY Morales, Queta Manuel MD
Reason for Consultation: anemia
Medical History
Chief Complaint / HPI
Chief Complaint: weakness
History of Present Illness:
Pt is an 79 with hx esophageal CA with prior stenting at [facility] in January 2025, with prior TAVR, prior CVA, constipation, hyponatremia with onset of fatigue. In review with patient he was diagnosed with esophageal CA in 2022. He completed chemo and
radiation. He has repeat EGD in 2023 with some further treatment but recall stopping with weakness and intolerance. He then developed dysphagia in 2024 with placement of esophageal stent with some ongoing pain from stent with chronic narcotic use
and recent worsening constipation. Last imaging with PET scan in April with severe wall thickening and increased FDG uptake proximal and distal margins of metal stent lower third of esophagus extending to GE junction -- esophageal CA vs
esophagitis no mets. He had follow up 06/[address] Enriquez and noted with fatigue and pale skin recommended follow up hbg check but pt symptoms worsened and presented to ER with hbg 5.2. Pt also admits to recent follow up with palliative care.
Pt currently admits to esophageal stent pain but denies dysphagia, odynophagia and has been able to manage a regular bland diet. He has had significant abdominal pain with crampy symptoms with constipation. He began Miralax every other day.
Then daily and now was recommended to add Dulcolax per recent palliative care visit. He denies nausea, vomiting, wt loss, blood or black in stools. No anticoagulation. On daily ASA. Pt also noted with Na 127, albumin 2.9, after admission and
iron studies c/w chronic disease.
Past Medical History
Past Medical History: Cancer (esophageal cancer with stent ), CVA, Valvular Disease (severe ) and Other (anemia, hyponatremia )
Past Surgical History: Cardiac (TAVR )
Social History
Tobacco: Former Smoker (quit 's )
Alcohol: None
Drug: None
Personal:
Living: With Family
Employment: Retired
Family History
Family History: Other (no family hx colon CA or problems )
Allergies / Home Medications
Allergy/AdvReac Type Severity Reaction Status Date / Time
No Known Allergies Allergy Verified 06/06/25 17:00
�Medication �Instructions �Recorded
aspirin 81 mg tablet,delayed 81 mg PO DAILY Blood clot 03/08/25
release prevention/tx #0 tabs
omeprazole 40 mg capsule,delayed 40 mg PO DAILY Gastrointestinal 04/11/25
release Issue
oxycodone 5 mg capsule 5 mg PO Q4HPRN PRN Severe Pain 04/11/25
therapeutic multivitamin 1 tab PO DAILY Supplement 04/11/25
polyethylene glycol 3350 17 gram 17 g PO DAILY #0 ea 04/12/25
oral powder packet
Review of Systems
-
History Source: Patient
Constitutional: Reports No Symptoms and Weight Gain
EENT: Reports No Symptoms
Respiratory: Reports No Symptoms
Cardiac: Reports Chest Pain (with stent )
Abdomen/GI: Reports Abdominal Pain and Constipated
: Reports No Symptoms
Musculoskeletal: Reports No Symptoms
Skin: Reports No Symptoms
Neurological: Reports Weakness
Endocrine: Reports No Symptoms
Hematologic/Lymphatic: Reports No Symptoms
Vital Signs
Temp Pulse Resp BP Pulse Ox
98.8 F 80 18 154/79 98
06/07/25 03:38 06/07/25 03:38 06/07/25 03:38 06/07/25 03:38 06/07/25 03:38
Physical Exam
Exam
General: Other (pale appearing no acute distress)
HEENT: Normocephalic
Respiratory: Other (decreased bases )
Cardiac: Regular Rhythm
GI: Soft and Non Distended
Musculoskeletal: No Clubbing and No Cyanosis
Skin: Warm and Dry
Neuro: Awake, Alert and AO x 3
Psych: Calm
Results
WBC 7.5 10^3/uL (4.8-10.8) 06/07/25 07:06
Hgb Cancelled 06/07/25 13:00
Hct Cancelled 06/07/25 13:00
MCV 85.8 fL (80.0-94.0) 06/07/25 07:06
Plt Count 141 10^3/uL (130-400) 06/07/25 07:06
Absolute Neuts (auto) 3.8 10^3/uL (1.4-6.5) 06/06/25 17:09
PT 15.4 Sec (11.4-14.6) H 06/07/25 07:06
INR 1.24 06/07/25 07:06
APTT 33.0 Sec (23.4-35.0) 06/07/25 07:06
Sodium 128 mmol/L (135-145) L 06/06/25 17:09
Potassium 4.0 mmol/L (3.5-5.1) 06/06/25 17:09
Chloride 98 mmol/L (98-107) 06/06/25 17:09
Carbon Dioxide 29 mmol/L (22-30) 06/06/25 17:09
BUN 22 mg/dl (9-20) H 06/06/25 17:09
Creatinine 0.7 mg/dL (0.7-1.3) 06/06/25 17:09
Calcium 8.0 mg/dl (8.4-10.2) L 06/06/25 17:09
Total Bilirubin 0.9 mg/dl (0.2-1.3) 06/06/25 17:09
AST 20 U/L (17-59) 06/06/25 17:09
ALT 12 U/L (0-50) 06/06/25 17:09
Alkaline Phosphatase 104 U/L (38-126) 06/06/25 17:09
Lipase 27 U/L (23-300) 06/06/25 17:09
Diagnostic Image Results:
01/23/25- [facility]- partially obstructing malignant esophageal tumor found in distal esophagus, esophageal stent placed, 2 sutures placed to secure stent, normal stomach, duodenum no specimens collected.
05/2024-- EGD - Benign-appearing esophageal stenosis. Erythema at the gastroesophageal junction. Nodular, ulcerated mucosa in the esophagus. Biopsied. No gross lesions in the entire stomach.
- Normal duodenal bulb, first portion of the duodenum and second portion of the duodenum.
11/2022- EGD -- Partially obstructing, ulcerating large
circumferential esophageal mass was found in the
distal esophagus with narrowing. Biopsied. Sent STAT.
Unable to transverse to stomach.
05/03/2025 PT Pet [facility] W/CT Skull-thigh
1. Severe wall thickening and increased FDG uptake along the proximal and distal margins of a metal stent in the lower third of the esophagus extending through the gastroesophageal junction. Diagnostic possibilities are (1) recurrent esophageal
cancer or (2) severe inflammatory esophagitis.
2. No evidence for FDG avid metastatic disease.
no prior colonoscopy in past
Assessment / Plan
-
Pt is an 79 with hx esophageal CA with prior stenting at [facility] in January 2025, with prior TAVR, prior CVA, constipation, hyponatremia with onset of fatigue. In review with patient he was diagnosed with esophageal CA in 2022. He completed chemo and
radiation. He has repeat EGD in 2023 with some further treatment but recall stopping with weakness and intolerance. He then developed dysphagia in 2024 with placement of esophageal stent with some ongoing pain from stent with chronic narcotic use
and recent worsening constipation. Last imaging with PET scan in April with severe wall thickening and increased FDG uptake proximal and distal margins of metal stent lower third of esophagus extending to GE junction -- esophageal CA vs
esophagitis no mets. He had follow up 06/[address] Enriquez and noted with fatigue and pale skin recommended follow up hbg check but pt symptoms worsened and presented to ER with hbg 5.2. Pt also admits to recent follow up with palliative care.
Pt currently admits to esophageal stent pain but denies dysphagia, odynophagia and has been able to manage a regular bland diet. He has had significant abdominal pain with crampy symptoms with constipation. He began Miralax every other day.
Then daily and now was recommended to add Dulcolax per recent palliative care visit. He denies nausea, vomiting, wt loss, blood or black in stools. No anticoagulation. On daily ASA. Pt also noted with Na 127, albumin 2.9, after admission and
iron studies c/w chronic disease.
01/23/25- [facility]- partially obstructing malignant esophageal tumor found in distal esophagus, esophageal stent placed, 2 sutures placed to secure stent, normal stomach, duodenum no specimens collected.
05/03/2025 PT Pet Wbi W/CT Skull-thigh
1. Severe wall thickening and increased FDG uptake along the proximal and distal margins of a metal stent in the lower third of the esophagus extending through the gastroesophageal junction. Diagnostic possibilities are (1) recurrent esophageal
cancer or (2) severe inflammatory esophagitis.
2. No evidence for FDG avid metastatic disease.
-symptomatic anemia
-hx esophageal CA with prior stent, chemo and radiation
-constipation
-hyponatremia
-hypoalbuminemia
other med problems:
Prior CVA on ASA
-HX with prior TAVR
PLAN:
Etiology of anemia related to esophageal malignancy with oozing, PUD, vs other - no hx colonoscopy in past
reviewed with patient for EGD -- he would like to review with Dr. Manuel and oncology and consider for AM if Na corrected
trend hbg s/p transfusion with improvement
cont PPI
will allow regular diet as has been tolerating at home
cont miralax and will add Dulcolax with senna to regiment
for oncology eval to discuss other option if progression of esophageal tumor
-
-
Thank you for consultation and allowing me to participate in the patient's care. Please call the chief engineer production GI physician during the after hours with any questions or concerns.
[2025-06-07 08:38] LABS: Blood Urea Nitrogen 18 mg/dl (9-20); Calcium 7.7 mg/dl (8.4-10.2); Carbon Dioxide 28 mmol/L (22-30); Chloride 97 mmol/L (98-107); Estimated Creatinine Clearance 65 ml/min; Glucose 103 mg/dl (70-99); Potassium 3.5 mmol/L (3.5-5.1); Sodium 127 mmol/L (135-145); eGFR > 60.00
[2025-06-07] MEDS: MIRALAX 17 GRAMS PO (09:35)
[2025-06-07] MEDS: NSS (PRESERVATIVE FREE) 10 ML IV ×2 (09:36→19:40)
[2025-06-07] MEDS: PROTONIX IV 40 MG IV ×2 (09:36→19:38)
--- NOTE | 2025-06-07 11:13 | CON.ONC ---
Consultation
-
Date Consultation Requested: 06/07/25
Date Consultation Performed: 06/07/25
Requesting Provider: Efrain
Performing Provider: Emely
Reason for Consultation: Esophogeal cancer
Impression
Impression
Esophageal cancer with some suspicion of possible local recurrence
Severe anemia
Hyponatremia
Plan
Plan
Arrange for EGD evaluation stabilized from a hyponatremia standpoint.
Based on that evaluation and the PET scan results, palliative radiation may be considered if recurrent disease identified which is what is suspected based on the PET scan findings although not confirmed.
Unclear how much radiation patient will be eligible to receive in the palliative dose as patient has previously been treated with 4500 cGy of definitive radiation as part of the initial chemoradiation treatment back in 2022.
Dr. Fabian knows patient and is aware of current hospitalization and will standby depending what is found at the EGD.
Thank you. Will follow
Patient History
History of Present Illness
Chief Complaint: weakness, anemia
HPI: 79 with hx T3N1 esophageal CA with prior stenting at [facility] in January 2025, with prior TAVR, prior CVA, constipation, hyponatremia with onset of fatigue and associated anemia with HgB = 5.2 . He was diagnosed with esophageal CA in 2022. He
completed chemo and radiation. Developed dysphagia in 2024 with placement of esophageal stent with some ongoing pain from stent with chronic narcotic use and recent worsening constipation. Last imaging with PET scan in April with severe wall
thickening and increased FDG uptake proximal and distal margins of metal stent lower third of esophagus extending to GE junction -- esophageal CA vs esophagitis no mets. He had follow up 06/[address] Enriquez and noted with fatigue and pale skin
recommended follow up hbg check but pt symptoms worsened and presented to ER with hbg 5.2. He was transfused 2 units of PRBCs. GI was consulted for direct visualization EGD which is likely being scheduled for tomorrow.
Past-Medical/Surgical History
PMH:
Cancer (esophageal cancer with stent ), CVA, Valvular Disease (severe ) and Other (anemia, hyponatremia )
Past Surgical History: Cardiac (TAVR )
Social History
Tobacco: Former Smoker (quit 20's )
Alcohol: None
Drug: None
Personal:
Living: With Family
Employment: Retired
Patient Medication
�Medication �Instructions �Recorded �Confirmed �Last Taken �Type
aspirin 81 mg tablet,delayed 81 mg PO DAILY Blood clot 03/08/25 06/06/25 04/11/25 Rx
release prevention/tx #0 tabs
omeprazole 40 mg capsule,delayed 40 mg PO DAILY Gastrointestinal 04/11/25 06/06/25 Unknown History
release Issue
oxycodone 5 mg capsule 5 mg PO Q4HPRN PRN Severe Pain 04/11/25 06/06/25 04/11/25 14:00 History
therapeutic multivitamin 1 tab PO DAILY Supplement 04/11/25 06/06/25 Unknown History
polyethylene glycol 3350 17 gram 17 g PO DAILY #0 ea 04/12/25 06/06/25 Unknown Rx
oral powder packet
Active Medications
Generic Name Dose Route Start Last Admin
Trade Name Freq PRN Reason Stop Dose Admin
Acetaminophen 650 mg 06/06/25 22:19
Acetaminophen 325 Mg Tablet PO 07/04/25 22:18
Q4HPRN PRN
Mild Pain / Temp > 101
Ondansetron HCl 4 mg 06/06/25 22:19
Ondansetron 4 Mg/2 Ml Vial IV 07/04/25 22:18
Q6HPRN PRN
nausea and vomiting
Oxycodone HCl 10 mg 06/07/25 03:18 06/07/25 09:34
Oxycodone 10 Mg Regular Release Tablet PO 06/21/25 03:17 10 mg
Q4HPRN PRN Administration
mod- severe pain
Pantoprazole Sodium 40 mg 06/07/25 08:00 06/07/25 09:36
Pantoprazole Sodium 40 Mg/10 Ml Vial IV 07/05/25 07:59 40 mg
BID KRISTINA Administration
Polyethylene Glycol 17 grams 06/07/25 08:00 06/07/25 09:35
Polyethylene Glycol Powder 17 Grams Packet PO 07/05/25 07:59 17 grams
DAILY KRISTINA Administration
Senna/Docusate Sodium 1 tablet 06/07/25 20:00
Docusate W/Senna (Nuzhat-Colace) Tablet PO 07/05/25 19:59
BID KRISTINA
Sodium Chloride 0 flush 06/06/25 23:00
Sodium Chloride 0.9% (Flush) Syringe IV 07/04/25 22:59
PER PROTOCOL KRISTINA
Sodium Chloride 10 ml 06/07/25 08:00 06/07/25 09:36
Sodium Chloride 0.9% (Preservative Free) 10 Ml Vial IV 07/05/25 07:59 10 ml
BID KRISTINA Administration
Physical Exam
-
General: Well Developed, Well Nourished, No Apparent Distress and Comfortable
HEENT: Negative Jaundice
Cardiology: S1 and S2
Pulmonary: Clear
GI: Soft; Negative Distended
Extremities: No C/C/E
Neurology: Non Focal
Labs
Lab Results
WBC 7.5 10^3/uL (4.8-10.8) 06/07/25 07:06
RBC 2.74 10^6/uL (4.70-6.10) L 06/07/25 07:06
Hgb Cancelled 06/07/25 13:00
Hct Cancelled 06/07/25 13:00
MCV 85.8 fL (80.0-94.0) 06/07/25 07:06
MCH 28.8 pg (27.0-31.0) 06/07/25 07:06
MCHC 33.6 g/dL (33.0-37.0) 06/07/25 07:06
RDW 14.6 % (11.5-14.5) H 06/07/25 07:06
Plt Count 141 10^3/uL (130-400) 06/07/25 07:06
MPV 8.8 fL (7.4-10.4) 06/07/25 07:06
Abs Immat Gran (auto) 0.0 10^3/uL (0-0.05) 06/06/25 17:09
Absolute Neuts (auto) 3.8 10^3/uL (1.4-6.5) 06/06/25 17:09
Absolute Lymphs (auto) 0.8 10^3/uL (1.2-3.4) L 06/06/25 17:09
Absolute Monos (auto) 0.4 10^3/uL (0.1-0.6) 06/06/25 17:09
Absolute Eos (auto) 0.0 10^3/uL (0-0.7) 06/06/25 17:09
Absolute Basos (auto) 0.0 10^3/uL (0-0.2) 06/06/25 17:09
Immature Gran % 0.4 % (0-0.5) 06/06/25 17:09
Neutrophils % 74.8 % (42.2-75.2) 06/06/25 17:09
Lymphocytes % 16.2 % (20.5-51.1) L 06/06/25 17:09
Monocytes % 7.6 % (1.7-9.3) 06/06/25 17:09
Eosinophils % 0.8 % (0-6) 06/06/25 17:09
Basophils % 0.2 % (0-2) 06/06/25 17:09
Creatinine 0.8 mg/dL (0.7-1.3) 06/07/25 07:06
Vital Signs
Vital Signs
Temp Pulse Resp BP Pulse Ox
99.5 F 79 18 136/76 98
06/07/25 07:20 06/07/25 07:20 06/07/25 07:20 06/07/25 07:20 06/07/25 07:20
--- NOTE | 2025-06-07 12:01 | W.PN.HOSP.TC ---
Today's Communication/Plan
-
PPI BID
Trend h/h
repaet bmp
EGD?
pain control
Assessment / Plan
Assessment / Plan
General: Other (Pale-appearing 79y M in no acute distress.)
HEENT: Moist mucous membranes and PERRLA
Respiratory: Clear; No Wheezes, Rales or Rhonchi
Cardiac: S1/S2 and Regular Rhythm; No Murmur
GI: Soft, Non Distended, Normal Bowel Sounds and Other (Mild upper abdominal tenderness. Pos BS. No rebound / guarding.)
Musculoskeletal: No Clubbing, No Cyanosis and Other (Skin changes of b/l LE suggestive of significant previous edema - now improving.)
Neuro: AO x 3
A/P: Patient is an 79y M with PMH significant for esophageal cancer s/p stent, s/p TAVR and prior CVA who presents to ED complaining of weakness and fatigue.
Symptomatic Anemia
Acute Blood Loss Anemia on Anemia of Chronic Disease
Presumed GI Blood Loss
- Admit for further evaluation and treatment.
- Hgb = 5.2 on admission.
- No gross bleeding or melena noted - but recent issues with abdominal pain / constipation and known esophageal stent.
- s/p 2 units PRBCs. Hgb at 7.9. Trend h/h
- IV PPI BID.
- GI evaluation for additional evaluation / recommendations.
- Bleeding potentially related to metal esophageal stent?
Esophageal Cancer
- Stent placed in January 2025. Last chemo 6 weeks ago - currently on hold.
- PET / CT done 05/03 showed esophageal enhancement around the stent but no other active areas.
- Onc following-correspondence noted
ASCVD / Prior CVA
- Hold ASA acutely given blood loss / symptomatic anemia.
Severe s/p TAVR
- Stable. LE edema appears to be improving from prior.
- Follow I/Os, daily weights, etc.
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
- Stable. Follow for changes.
- Na range from 126-129
- Check serum osm/urine lytes.
Subacute opiate depedent due to esoghageal metal stent
-oxycodone 10mg q4-6hprn and added oxycodone 15mg for severe breakthrough pain
DVT Prophylaxis: SCDs in setting of severe anemia/suspected GI bleed
Code Status: DNR
Anticipated Discharge: > 48 hours
Subjective/Interval History
-
Date of Service: June 07, 2025
states of epigastric pain
Objective Data
-
Labs:
Laboratory Results
06/07/25 06/07/25 06/07/25
07:06 13:00 13:00
WBC 7.5
Hgb 7.9 L D Cancelled Pending
Hct 23.5 L Cancelled
Plt Count 141
PT 15.4 H
INR 1.24
APTT 33.0
Sodium 127 L
Potassium 3.5
Chloride 97 L
Carbon Dioxide 28
BUN 18
Creatinine 0.8
Glucose 103 H
Calcium 7.7 L
06/07/25 06/07/25
13:00 21:00
WBC
Hgb Pending
Hct Pending Pending
Plt Count
PT
INR
APTT
Sodium
Potassium
Chloride
Carbon Dioxide
BUN
Creatinine
Glucose
Calcium
Vital Signs:
Vital Signs
Temp Pulse Resp BP Pulse Ox
99.5 F 79 18 136/76 98
06/07/25 07:20 06/07/25 07:20 06/07/25 07:20 06/07/25 07:20 06/07/25 07:20
I&O
06/06/25 06/07/25 06/08/25
06:59 06:59 06:59
Intake Total 500 / 500
Output Total 750 / 750
Balance -250 / -250
Data Reviewed
-
Total Time Spent with Patient (in minutes): 55
--- NOTE | 2025-06-07 12:28 | CM ---
Patient seen bedside, initial assessment completed. Patient is an 79y M with PMH significant for ASCVD, s/p TAVR and esophageal cancer who presents to ED complaining of weakness / fatigue.
Patient resides w/ spouse in a 2ST[facility], no steps to enter. Patient prev independent w/ ambulation, no device required. Independent w/ ADLs and personal care. Drives (+). Denies SNF/HC hx. Patient reported he came in for weakness.
Address, point of contact and insurance verified
PCP: Chino Simental
Pharmacy: [facility]
TT hospitalist for PT/OT orders.
Plan: Anticipate home, await PT/OT evals
[2025-06-07 13:09] LABS: Hematocrit 23.6 % (39.0-52.0); Hemoglobin 8.0 g/dL (13.0-18.0)
[2025-06-07 13:46] LABS: Blood Urea Nitrogen 21 mg/dl (9-20); Calcium 7.8 mg/dl (8.4-10.2); Carbon Dioxide 29 mmol/L (22-30); Chloride 97 mmol/L (98-107); Estimated Creatinine Clearance 65 ml/min; Glucose 170 mg/dl (70-99); Potassium 3.7 mmol/L (3.5-5.1); Sodium 125 mmol/L (135-145); eGFR > 60.00
--- NOTE | 2025-06-07 14:29 | W.CON.NEPH ---
Consultation
-
Date/Time Consultation Requested: 06/07/2025 2 PM
Date/Time Consultation Performed: 06/07/2025 2 PM
Requesting Provider: Dr. Zuniga
Performing Provider: Dr. House
Reason for Consultation: Hyponatremia
Medical History
-
Chief Complaint: Fatigue
History of Present Illness:
This is an 79-year-old gentleman who has TAVR which has been stable over time but has esophageal cancer with is undergoing chemotherapy and radiation. He also has esophageal stent placed in January 2025. He has chronic pain from the stent and is on
narcotics for pain control. He has a history of prior stroke and is now on aspirin therapy for secondary prevention. He has had no new issues with that. For most of this year he has been known to have hyponatremia with sodium levels running
approximately 127. He does not follow a fluid restriction and in fact drinks easily 80 up to 128 ounces per day. His appetite has otherwise been fairly good without issue. He had acute fatigue and because of this came to emergency room. He was
found to have a hemoglobin of 5.2. He was transfused. Sodium level was low on admission at 128 but has dropped to 125 today.
Past Medical History
Esophageal Cancer s/p Chemo and Stenting
ASCVD / Prior CVA
Severe Aortic Stenosis s/p TAVR
SIADH / Chronic Hyponatremia
Anemia of Chronic Disease
Esophageal Stent (January 2025)
TAVR (March 2025)
Hernia repair
Social History
Tobacco: Former Smoker
Alcohol: Occasional
Family History
Family History: Not Pertinent
Allergies / Home Medications
Allergy/AdvReac Type Severity Reaction Status Date / Time
No Known Allergies Allergy Verified 06/06/25 17:00
�Medication �Instructions �Recorded �Confirmed �Type
aspirin 81 mg tablet,delayed 81 mg PO DAILY Blood clot 03/08/25 06/06/25 Rx
release prevention/tx #0 tabs
omeprazole 40 mg capsule,delayed 40 mg PO DAILY Gastrointestinal 04/11/25 06/06/25 History
release Issue
oxycodone 5 mg capsule 5 mg PO Q4HPRN PRN Severe Pain 04/11/25 06/06/25 History
therapeutic multivitamin 1 tab PO DAILY Supplement 04/11/25 06/06/25 History
polyethylene glycol 3350 17 gram 17 g PO DAILY #0 ea 04/12/25 06/06/25 Rx
oral powder packet
Physical Exam
Vital Signs
Vital Signs
Temp Pulse Resp BP Pulse Ox
98.9 F 77 18 127/68 100
06/07/25 11:12 06/07/25 11:12 06/07/25 11:12 06/07/25 11:12 06/07/25 11:12
Lab Results
WBC 7.5 10^3/uL (4.8-10.8) 06/07/25 07:06
RBC 2.74 10^6/uL (4.70-6.10) L 06/07/25 07:06
Plt Count 141 10^3/uL (130-400) 06/07/25 07:06
Sodium 125 mmol/L (135-145) L 06/07/25 12:54
Potassium 3.7 mmol/L (3.5-5.1) 06/07/25 12:54
Chloride 97 mmol/L (98-107) L 06/07/25 12:54
Carbon Dioxide 29 mmol/L (22-30) 06/07/25 12:54
BUN 21 mg/dl (9-20) H 06/07/25 12:54
Creatinine 0.8 mg/dL (0.7-1.3) 06/07/25 12:54
eGFR > 60.00 06/07/25 12:54
Glucose 170 mg/dl (70-99) H 06/07/25 12:54
Calcium 7.8 mg/dl (8.4-10.2) L 06/07/25 12:54
Albumin 2.9 g/dl (3.5-5.0) L 06/06/25 17:09
Laboratory Tests
03/02/25 04/12/25
22:26 05:58
Hgb 7.9 L
Sodium 129 L
Urine Osmolality 222 L
Urine Sodium 58
Physical Exam
Patient is awake alert oriented and in no distress. Mood and affect were pleasant, insight and judgment were good. Pupils are equal round and reactive to light, extraocular movements are intact, sclera were anicteric. Hearing was normal, ears and
nose are intact. Oropharynx was clear. Neck was supple with trachea midline and no thyromegaly. Heart was regular rate and rhythm without rubs. Lower extremities without edema. Lungs were clear to auscultation bilaterally and with normal
excursion. Abdomen was soft, nontender, with normal active bowel sounds, and no hepatosplenomegaly. Skin was without rash and with normal turgor.
Data Reviewed
-
Medical Tests (Nuc Med, Echo etc): Image Personally Visualized and interpreted (EKG 06/06/25 by reading normal sinus rhythm)
Labs: Labs Reviewed by me
Old Records: Reviewed
Assessment/Plan
-
Assessment
acute on chronic hyponatremia
Esophageal cancer, esophageal stent
Acute anemia
Plan
await urine studies
Fluid restriction 40 ounces
Follow BMP
Overall he will likely need to reduce his fluid intake in general.
[2025-06-07] MEDS: ROXICODONE 15 MG PO ×3 (14:56→23:56)
[2025-06-07] MEDS: SAMSCA 7.5 MG PO (17:04)
[2025-06-07] MEDS: SENOKOT-S 1 TABLET PO (19:38)
[2025-06-07 21:27] LABS: Hematocrit 22.5 % (39.0-52.0); Hemoglobin 7.6 g/dL (13.0-18.0)
[2025-06-08] VITALS (10 sets, daily range): BP systolic 16–134; BP diastolic 60–78
[2025-06-08] MEDS: ROXICODONE 15 MG PO ×3 (03:56→22:45)
[2025-06-08] MEDS: NSS (PRESERVATIVE FREE) 10 ML IV ×2 (08:15→19:50)
[2025-06-08] MEDS: PROTONIX IV 40 MG IV ×2 (08:15→19:50)
[2025-06-08] MEDS: FLUSH (NSS) 2 FLUSH IV ×2 (08:16→19:51)
[2025-06-08 08:45] LABS: Hematocrit 24.8 % (39.0-52.0); Hemoglobin 8.3 g/dL (13.0-18.0); Mean Corp Hgb Conc. 33.5 g/dL (33.0-37.0); Mean Corpuscular Volume 87.3 fL (80.0-94.0); Nucleated Red Blood Cells % 0 % (-); Platelet Count 171 10^3/uL (130-400); Red Cell Dist. Width 14.6 % (11.5-14.5)
[2025-06-08] MEDS: ROXICODONE 10 MG PO ×2 (09:05→18:28)
[2025-06-08 09:14] LABS: Blood Urea Nitrogen 19 mg/dl (9-20); Calcium 8.0 mg/dl (8.4-10.2); Carbon Dioxide 29 mmol/L (22-30); Chloride 99 mmol/L (98-107); Estimated Creatinine Clearance 58 ml/min; Glucose 113 mg/dl (70-99); Potassium 3.8 mmol/L (3.5-5.1); Sodium 129 mmol/L (135-145); eGFR > 60.00
--- NOTE | 2025-06-08 11:18 | W.PN.HOSP.TC ---
Addendum entered and electronically signed by Breezy Zuniga MD 06/08/25 13:55:
updated spouse over the phone
Original Note:
Today's Communication/Plan
-
Monitor postprocedure
If tolerating diet can consider possible potential discharge later today
Assessment / Plan
Assessment / Plan
General: In no acute distress
HEENT: Moist mucous membranes and PERRLA
Respiratory: Clear; No Wheezes, Rales or Rhonchi
Cardiac: S1/S2 and Regular Rhythm; No Murmur
GI: Soft, Non Distended, Normal Bowel Sounds and Other (Mild upper abdominal tenderness. Pos BS. No rebound / guarding.)
Musculoskeletal: No Clubbing, No Cyanosis and Other (Skin changes of b/l LE suggestive of significant previous edema - now improving.)
Neuro: AO x 3
A/P: Patient is an 79y M with PMH significant for esophageal cancer s/p stent, s/p TAVR and prior CVA who presents to ED complaining of weakness and fatigue.
Symptomatic Anemia
Acute Blood Loss Anemia on Anemia of Chronic Disease
Presumed GI Blood Loss
- Admit for further evaluation and treatment.
- Hgb = 5.2 on admission.
- No gross bleeding or melena noted - but recent issues with abdominal pain / constipation and known esophageal stent.
- s/p 2 units PRBCs. Hgb at 8.3.
- IV PPI BID.
- Plan for endoscopy
- Bleeding potentially related to metal esophageal stent?
Esophageal Cancer
- Stent placed in January 2025. Last chemo 6 weeks ago - currently on hold.
- PET / CT done 05/03 showed esophageal enhancement around the stent but no other active areas.
- Onc following-correspondence noted
ASCVD / Prior CVA
- Can probably restart aspirin on discharge
Severe s/p TAVR
- Stable. LE edema appears to be improving from prior.
- Follow I/Os, daily weights, etc.
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
- Stable. Follow for changes. Status post Samsca on 06/24/2025
- Chronically patient Na range from 126-129
- Sodium improved from 125- >129.
Subacute opiate depedent due to esoghageal metal stent
-oxycodone 10mg q4-6hprn and added oxycodone 15mg for severe breakthrough pain
DVT Prophylaxis: SCDs in setting of severe anemia/suspected GI bleed
Code Status: DNR
Discussed with oncologist
PT/OT Home health
Anticipated Discharge: Within 24 hours
Subjective/Interval History
-
Date of Service: June 08, 2025
Received Samsca yesterday
Objective Data
-
Labs:
Laboratory Results
06/08/25
07:51
WBC 7.7
Hgb 8.3 L
Hct 24.8 L
Plt Count 171 D
Sodium 129 L
Potassium 3.8
Chloride 99
Carbon Dioxide 29
BUN 19
Creatinine 0.9
Glucose 113 H
Calcium 8.0 L
Vital Signs:
Vital Signs
Temp Pulse Resp BP Pulse Ox
98.4 F 84 18 121/78 98
06/08/25 07:00 06/08/25 07:00 06/08/25 07:00 06/08/25 07:00 06/08/25 07:00
I&O
06/07/25 06/08/25 06/09/25
06:59 06:59 06:59
Intake Total 500 / 500 720 / 720
Output Total 750 / 750 1075 / 1075
Balance -250 / -250 -355 / -355
--- NOTE | 2025-06-08 11:54 | W.PN.UPDATE ---
Update Note
Progress Note Update
d/w onc and hospitalist
dc planning
gi will sign off pls call with ?S
--- NOTE | 2025-06-08 12:00 | W.PN.ONC2 ---
Today's Communication / Plan
-
IV iron ordered -can complete course in the office if discharged today
f/u EGD
close OP follow up with Dr. Enriquez will be arranged upon discharge
Impression
Impression
Esophageal cancer with some suspicion of possible local recurrence
Severe anemia improved from 5.2g/dL to 8.3g/dL s/p 2U PRBC -iron studies with ferritin <100 suggest BRANDON
Hyponatremia s/p tolpavan 06/07
Plan
Plan
EGD planned today
Based on that evaluation and the PET scan results, palliative radiation may be considered if recurrent disease identified which is what is suspected based on the PET scan findings although not confirmed.
Unclear how much radiation patient will be eligible to receive in the palliative dose as patient has previously been treated with 4500 cGy of definitive radiation as part of the initial chemoradiation treatment back in 2022.
Dr. Fabian knows patient and is aware of current hospitalization and will standby depending what is found at the EGD.
Subjective/Objective
Subjective
denies pain
some constipation, using miralax
using oxy IR prn pain
afebrile, no hypoxia or hypotension
Vital Signs:
Vital Signs
Temp Pulse Resp BP Pulse Ox
98.4 F 84 18 121/78 98
06/08/25 07:00 06/08/25 07:00 06/08/25 07:00 06/08/25 07:00 06/08/25 07:00
Lab Results:
Laboratory Data
WBC 7.7 10^3/uL (4.8-10.8) 06/08/25 07:51
Hgb 8.3 g/dL (13.0-18.0) L 06/08/25 07:51
Plt Count 171 10^3/uL (130-400) D 06/08/25 07:51
PT 15.4 Sec (11.4-14.6) H 06/07/25 07:06
INR 1.24 06/07/25 07:06
APTT 33.0 Sec (23.4-35.0) 06/07/25 07:06
eGFR > 60.00 06/08/25 07:51
Physical Exam
dry flaking skin bilateral calves
HEENT: No Jaundice
Pulmonary: Other (unlabored)
GI: Soft
Extremities: Pulses Present; No Edema
Neuro: Non Focal
[2025-06-08] MEDS: MIRALAX 17 GRAMS PO (14:26)
[2025-06-08] MEDS: SENOKOT-S 1 TABLET PO ×2 (14:26→19:50)
[2025-06-08] MEDS: FERRLECIT 110 MG IV (14:27)
--- NOTE | 2025-06-08 14:48 | W.PN.NEPH.PH ---
Today's Communication / Plan
-
samsca
Assessment/Plan
-
Assessment
acute on chronic hyponatremia
Esophageal cancer, esophageal stent
Acute anemia
Plan
Fluid restriction 40 ounces
samsca again
Follow BMP
Overall he will likely need to reduce his fluid intake in general.
-
-
Date of Service: June 08, 2025
CC / HPI / ROS
-
Chief Complaint:
hyponatremia
History of Present Illness:
Na up to 129 with samsca
BP stable
hgb low stable 8.3
Review of Sysems:
no CP/SOB
Labs
-
Labs:
WBC 7.7 10^3/uL (4.8-10.8) 06/08/25 07:51
RBC 2.84 10^6/uL (4.70-6.10) L 06/08/25 07:51
Hgb 8.3 g/dL (13.0-18.0) L 06/08/25 07:51
Hct 24.8 % (39.0-52.0) L 06/08/25 07:51
Plt Count 171 10^3/uL (130-400) D 06/08/25 07:51
Sodium 129 mmol/L (135-145) L 06/08/25 07:51
Potassium 3.8 mmol/L (3.5-5.1) 06/08/25 07:51
Chloride 99 mmol/L (98-107) 06/08/25 07:51
Carbon Dioxide 29 mmol/L (22-30) 06/08/25 07:51
BUN 19 mg/dl (9-20) 06/08/25 07:51
Creatinine 0.9 mg/dL (0.7-1.3) 06/08/25 07:51
eGFR > 60.00 06/08/25 07:51
Glucose 113 mg/dl (70-99) H 06/08/25 07:51
Calcium 8.0 mg/dl (8.4-10.2) L 06/08/25 07:51
Albumin 2.9 g/dl (3.5-5.0) L 06/06/25 17:09
Physical Exam
-
Vital Signs:
Vital Signs
Temp Pulse Resp BP Pulse Ox
97.8 F 79 18 134/76 100
06/08/25 12:34 06/08/25 12:34 06/08/25 12:34 06/08/25 12:34 06/08/25 12:34
Cardiovascular:: Regular rate and rhythm
Respiratory:: Bilateral: CTA
Lung Excursion:: Normal
Abdomen:: Nontender and Soft
Bowel Sounds:: Normal
Extremity Edema:: None: Bilateral:
[2025-06-08] MEDS: CARAFATE 1 GRAM PO ×2 (16:32→22:43)
[2025-06-08] MEDS: SAMSCA 7.5 MG PO (16:33)
[2025-06-09] VITALS (8 sets, daily range): BP systolic 122–149; BP diastolic 65–87
[2025-06-09] MEDS: ROXICODONE 15 MG PO ×2 (03:02→20:13)
[2025-06-09] MEDS: ROXICODONE 10 MG PO ×4 (04:37→17:00)
--- NOTE | 2025-06-09 08:21 | W.PN.ONC2 ---
Today's Communication / Plan
-
discharge planning
Impression
Impression
Esophageal cancer with some suspicion of possible local recurrence
Severe anemia Hgb 5.2g/dL s/p 2U PRBC -iron studies with ferritin <100 suggest BRANDON
Hyponatremia s/p tolpavan 06/07, 06/08
Plan
Plan
continue IV iron -course can be completed in the office upon discharge
f/u EGD biopsy
PET Jul 2025
additional palliative radiation may be considered if recurrent disease identified, previously been treated with 4500 cGy of definitive radiation as part of the initial chemoradiation treatment back in 2022.
follow up with Dr. Maria will be arranged upon discharge depending on EGD bx and PET results
Subjective/Objective
Subjective
denies pain
using oxy IR prn pain
afebrile, no hypoxia or hypotension
ambulating independently
denies overt bleeding
constipation
Vital Signs:
Vital Signs
Temp Pulse Resp BP Pulse Ox
98.9 F 84 18 142/74 99
06/09/25 03:01 06/09/25 03:01 06/09/25 03:01 06/09/25 03:01 06/09/25 03:01
Lab Results:
Laboratory Data
WBC 7.7 10^3/uL (4.8-10.8) 06/08/25 07:51
Hgb 8.3 g/dL (13.0-18.0) L 06/08/25 07:51
Plt Count 171 10^3/uL (130-400) D 06/08/25 07:51
PT 15.4 Sec (11.4-14.6) H 06/07/25 07:06
INR 1.24 06/07/25 07:06
APTT 33.0 Sec (23.4-35.0) 06/07/25 07:06
eGFR > 60.00 06/08/25 07:51
Physical Exam
dry flaking skin bilateral calves
HEENT: No Jaundice
Pulmonary: Other (unlabored)
GI: Soft
Extremities: Pulses Present; No Edema
Neuro: Non Focal
Orders
Orders
Orders From Last 24 Hours
06/08/25 14:00
Ferric Gluconate [Ferrlecit] 125 mg 0.9% Sodium Chloride 100 ml [Nss] 100 ml IV DAILY@1400
[2025-06-09] MEDS: CARAFATE 1 GRAM PO ×4 (08:24→21:35)
[2025-06-09] MEDS: NSS (PRESERVATIVE FREE) 10 ML IV ×2 (08:24→19:59)
[2025-06-09] MEDS: MIRALAX 17 GRAMS PO (08:24)
[2025-06-09] MEDS: PROTONIX IV 40 MG IV ×2 (08:25→19:58)
[2025-06-09] MEDS: SENOKOT-S 1 TABLET PO ×2 (08:25→19:59)
[2025-06-09] MEDS: FLUSH (NSS) 2 FLUSH IV (08:26)
[2025-06-09 08:52] LABS: Hematocrit 22.6 % (39.0-52.0); Hemoglobin 7.4 g/dL (13.0-18.0); Mean Corp Hgb Conc. 32.7 g/dL (33.0-37.0); Mean Corpuscular Volume 85.9 fL (80.0-94.0); Nucleated Red Blood Cells % 0 % (-); Platelet Count 162 10^3/uL (130-400); Red Cell Dist. Width 15.2 % (11.5-14.5)
[2025-06-09 09:23] LABS: Blood Urea Nitrogen 17 mg/dl (9-20); Calcium 7.9 mg/dl (8.4-10.2); Carbon Dioxide 28 mmol/L (22-30); Chloride 100 mmol/L (98-107); Estimated Creatinine Clearance 58 ml/min; Glucose 117 mg/dl (70-99); Potassium 3.7 mmol/L (3.5-5.1); Sodium 130 mmol/L (135-145); eGFR > 60.00
--- NOTE | 2025-06-09 10:18 | W.PN.NEPH.PH ---
Today's Communication / Plan
-
FR , samsca
Assessment/Plan
-
Assessment
acute on chronic hyponatremia
Esophageal cancer, esophageal stent
Acute anemia
Plan
Sodium only up at 130 after samsca
likely need gentle FR 50ounces/day, has not been able to do it yet
samsca again
BP stable
Follow BMP
Overall he will likely need to reduce his fluid intake in general
pain control.
-
-
Date of Service: June 09, 2025
CC / HPI / ROS
-
Chief Complaint:
hyponatremia
History of Present Illness:
Na up to 130 with samsca
BP stable
hgb low 7.4
Review of Sysems:
no CP/SOB
pain fair control
Labs
-
Labs:
WBC 5.8 10^3/uL (4.8-10.8) 06/09/25 08:18
RBC 2.63 10^6/uL (4.70-6.10) L 06/09/25 08:18
Plt Count 162 10^3/uL (130-400) 06/09/25 08:18
Sodium 130 mmol/L (135-145) L 06/09/25 08:18
Potassium 3.7 mmol/L (3.5-5.1) 06/09/25 08:18
Chloride 100 mmol/L (98-107) 06/09/25 08:18
Carbon Dioxide 28 mmol/L (22-30) 06/09/25 08:18
BUN 17 mg/dl (9-20) 06/09/25 08:18
Creatinine 0.9 mg/dL (0.7-1.3) 06/09/25 08:18
eGFR > 60.00 06/09/25 08:18
Glucose 117 mg/dl (70-99) H 06/09/25 08:18
Calcium 7.9 mg/dl (8.4-10.2) L 06/09/25 08:18
Albumin 2.9 g/dl (3.5-5.0) L 06/06/25 17:09
Physical Exam
-
Vital Signs:
Vital Signs
Temp Pulse Resp BP Pulse Ox
98.2 F 88 12 122/74 100
06/09/25 07:00 06/09/25 07:00 06/09/25 07:00 06/09/25 07:00 06/09/25 07:00
Cardiovascular:: Regular rate and rhythm
Respiratory:: Bilateral: CTA
Lung Excursion:: Normal
Abdomen:: Nontender and Soft
Bowel Sounds:: Normal
Extremity Edema:: None: Bilateral:
Villa Catheter: No
--- NOTE | 2025-06-09 11:31 | W.PN.HOSP.TC ---
Addendum entered and electronically signed by Breezy Zuniga MD 06/09/25 14:00:
Hemoglobin is 7.3. Will plan to transfuse 1 unit of PRBC. Discussed with patient and he was agreeable amenable to planning.
Original Note:
Today's Communication/Plan
-
Plan for possible discharge depending on repeat hemoglobin
Continue with IV iron while here
Soft and bite-size diet recommended
Continue PPI/Carafate
Assessment / Plan
Assessment / Plan
General: In no acute distress
HEENT: Moist mucous membranes and PERRLA
Respiratory: Clear; No Wheezes, Rales or Rhonchi
Cardiac: S1/S2 and Regular Rhythm; No Murmur
GI: Soft, Non Distended, Normal Bowel Sounds and Other (Mild upper abdominal tenderness. Pos BS. No rebound / guarding.)
Musculoskeletal: No Clubbing, No Cyanosis and Other (Skin changes of b/l LE suggestive of significant previous edema - now improving.)
Neuro: AO x 3
A/P: Patient is an 79y M with PMH significant for esophageal cancer s/p stent, s/p TAVR and prior CVA who presents to ED complaining of weakness and fatigue.
Symptomatic Anemia
Acute Blood Loss Anemia on Anemia of Chronic Disease
Presumed GI Blood Loss
- Admit for further evaluation and treatment.
- Hgb = 5.2 on admission.
- No gross bleeding or melena noted - but recent issues with abdominal pain / constipation and known esophageal stent.
- s/p 2 units PRBCs. Hemoglobin 7.4. Repeat H&H later today.
- Status post EGD. Correspondence noted. Multiple biopsies taken patient and spouse know to follow-up with biopsy results. PPI switched to twice daily. Carafate also ordered.
- Patient with multiple question would like to discussed with GI team. [place] texted.
Esophageal Cancer
- Stent placed in January 2025. Last chemo 6 weeks ago - currently on hold.
- PET / CT done 05/03 showed esophageal enhancement around the stent but no other active areas.
- Onc following-correspondence noted
ASCVD / Prior CVA
- Can probably restart aspirin on discharge
Severe s/p TAVR
- Stable. LE edema appears to be improving from prior.
- Follow I/Os, daily weights, etc.
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
- Stable. Follow for changes.
- Chronically patient Na range from 126-129
- Sodium improved from 130. Repeat dose of Samsca. Fluid restriction highly recommended.
Subacute opiate depedent due to esoghageal metal stent
-oxycodone 10mg q4-6hprn and added oxycodone 15mg for severe breakthrough pain
DVT Prophylaxis: SCDs in setting of severe anemia
Code Status: DNR
Updated spouse over the phone in detail 06/08/2025
PT/OT Home health
Anticipated Discharge: Today
Subjective/Interval History
-
Date of Service: June 09, 2025
States overnight of abdominal pain and took oxycodone
Patient with multiple question regarding EGD finding answered to the best of his satisfaction.
Objective Data
-
Labs:
Laboratory Results
06/09/25 06/09/25 06/09/25
08:18 09:00 13:00
WBC 5.8
Hgb 7.4 L Cancelled Pending
Hct 22.6 L Cancelled Pending
Plt Count 162
Sodium 130 L
Potassium 3.7
Chloride 100
Carbon Dioxide 28
BUN 17
Creatinine 0.9
Glucose 117 H
Calcium 7.9 L
Vital Signs:
Vital Signs
Temp Pulse Resp BP Pulse Ox
98.9 F 72 16 145/80 99
06/09/25 11:00 06/09/25 11:00 06/09/25 11:00 06/09/25 11:00 06/09/25 11:00
I&O
06/08/25 06/09/25 06/10/25
06:59 06:59 06:59
Intake Total 720 / 720 720 / 720
Output Total 1075 / 1075
Balance -355 / -355 720 / 720
Data Reviewed
-
Total Time Spent with Patient (in minutes): 55
[2025-06-09 12:54] LABS: Hematocrit 22.3 % (39.0-52.0); Hemoglobin 7.3 g/dL (13.0-18.0)
[2025-06-09] MEDS: SAMSCA 15 MG PO (12:54)
[2025-06-09] MEDS: FERRLECIT 110 MG IV (14:50)
[2025-06-09] MEDS: FLUSH (NSS) 1 FLUSH IV (14:50)
--- NOTE | 2025-06-09 15:26 | W.PN.GI.CBS2 ---
Today's Communication / Plan
-
Path on EGD still pending
C/w PPI and miralax
GI will sign off please call for ?
OP with me, d/c paperwork updated
Assessment / Plan
-
Pt is an 79 with hx esophageal CA with prior stenting at [place] in January 2025, with prior TAVR, prior CVA, constipation, hyponatremia with onset of fatigue. In review with patient he was diagnosed with esophageal CA in 2022. He completed chemo and
radiation. He has repeat EGD in 2023 with some further treatment but recall stopping with weakness and intolerance. He then developed dysphagia in 2024 with placement of esophageal stent with some ongoing pain from stent with chronic narcotic use
and recent worsening constipation. Last imaging with PET scan in April with severe wall thickening and increased FDG uptake proximal and distal margins of metal stent lower third of esophagus extending to GE junction -- esophageal CA vs
esophagitis no mets. He had follow up 06/[address] Enriquez and noted with fatigue and pale skin recommended follow up hbg check but pt symptoms worsened and presented to ER with hbg 5.2. Pt also admits to recent follow up with palliative care.
Pt currently admits to esophageal stent pain but denies dysphagia, odynophagia and has been able to manage a regular bland diet. He has had significant abdominal pain with crampy symptoms with constipation. He began Miralax every other day.
Then daily and now was recommended to add Dulcolax per recent palliative care visit. He denies nausea, vomiting, wt loss, blood or black in stools. No anticoagulation. On daily ASA. Pt also noted with Na 127, albumin 2.9, after admission and
iron studies c/w chronic disease.
01/23/25- EGD [facility]- partially obstructing malignant esophageal tumor found in distal esophagus, esophageal stent placed, 2 sutures placed to secure stent, normal stomach, duodenum no specimens collected.
05/03/2025 PT Pet [facility] W/CT Skull-thigh
1. Severe wall thickening and increased FDG uptake along the proximal and distal margins of a metal stent in the lower third of the esophagus extending through the gastroesophageal junction. Diagnostic possibilities are (1) recurrent esophageal
cancer or (2) severe inflammatory esophagitis.
2. No evidence for FDG avid metastatic disease.
Impression:
-symptomatic anemia
-hx esophageal CA with prior stent, chemo and radiation
-constipation
-hyponatremia
-hypoalbuminemia
Prior CVA on ASA
-HX with prior TAVR
Recommendation
- D/w patient results of EGD
- Will need DSY 6 diet
- Chew slowly
- C/w PPI IV BID
- Advise to use miralax daily Not PRN basis
- Serial H/H transfuse if needed. Stools are not bloody
- Agree with IV iron
He will follow up with me 06/30 in office. GI will sign off please call for ?
Subjective
Subjective
Date of Service: June 09, 2025
He has no abd pain current. Tolerating dysphagia diet. C/w some heartburn
Objective
Data Reviewed
Laboratory Data:
Laboratory Results
06/09/25 12:41
06/09/25 08:18
Laboratory Results
PT 15.4 Sec (11.4-14.6) H 06/07/25 07:06
INR 1.24 06/07/25 07:06
APTT 33.0 Sec (23.4-35.0) 06/07/25 07:06
Total Bilirubin 0.9 mg/dl (0.2-1.3) 06/06/25 17:09
AST 20 U/L (17-59) 06/06/25 17:09
ALT 12 U/L (0-50) 06/06/25 17:09
Alkaline Phosphatase 104 U/L (38-126) 06/06/25 17:09
Lipase 27 U/L (23-300) 06/06/25 17:09
Vital Signs and I&O:
Vital Signs
Temp Pulse Resp BP Pulse Ox
98.9 F 72 16 145/80 99
06/09/25 11:00 06/09/25 11:00 06/09/25 11:00 06/09/25 11:00 06/09/25 11:00
I&O
06/08/25 06/09/25 06/10/25
06:59 06:59 06:59
Intake Total 720 / 720 720 / 720
Output Total 1075 / 1075
Balance -355 / -355 720 / 720
Physical Exam
Physical Exam
GEN: No acute distress, conversant, pleasant
HEENT: anicteric, extraocular movements intact, clear oropharynx without exudates
GI: soft, non-distended, not tender to palpation, normal active bowel sounds, no hepatosplenomegaly
EXT: warm, well perfused, trace edema bilaterally
NEURO: AAOx3, non-focal
--- NOTE | 2025-06-09 15:53 | CM ---
Chart reviewed. Plan to transfuse today
Met w/ patient bedside, patient stated he is staying tonight, poss d/c tomorrow pending blood work
Reviewed therapy recommendation of home PT. Patient declined.
IMM verbally reviewed, copy provided, copy on chart
Plan: Home, no needs
[2025-06-09] MEDS: ZOFRAN 4 MG IV (21:35)
[2025-06-10] MEDS: ROXICODONE 10 MG PO ×3 (00:10→12:04)
[2025-06-10] MEDS: ROXICODONE 15 MG PO (01:32)
[2025-06-10 03:20] VITALS: BP 144/91
[2025-06-10] MEDS: DILAUDID 0.5 MG IV (03:36)
[2025-06-10 07:00] VITALS: BP 147/82
[2025-06-10] MEDS: CARAFATE 1 GRAM PO ×2 (08:02→12:00)
[2025-06-10] MEDS: SENOKOT-S 1 TABLET PO (08:05)
[2025-06-10] MEDS: MIRALAX 17 GRAMS PO (08:06)
[2025-06-10] MEDS: NSS (PRESERVATIVE FREE) 10 ML IV (08:08)
[2025-06-10] MEDS: PROTONIX IV 40 MG IV (08:08)
[2025-06-10 08:34] LABS: Hematocrit 27.0 % (39.0-52.0); Hemoglobin 8.9 g/dL (13.0-18.0); Mean Corp Hgb Conc. 33.0 g/dL (33.0-37.0); Mean Corpuscular Volume 86.8 fL (80.0-94.0); Nucleated Red Blood Cells % 0 % (-); Platelet Count 165 10^3/uL (130-400); Red Cell Dist. Width 14.9 % (11.5-14.5)
[2025-06-10 08:56] LABS: Blood Urea Nitrogen 14 mg/dl (9-20); Calcium 8.0 mg/dl (8.4-10.2); Carbon Dioxide 30 mmol/L (22-30); Chloride 100 mmol/L (98-107); Estimated Creatinine Clearance 65 ml/min; Glucose 113 mg/dl (70-99); Potassium 3.8 mmol/L (3.5-5.1); Sodium 132 mmol/L (135-145); eGFR > 60.00
--- NOTE | 2025-06-10 09:46 | W.PN.HOSP.TC ---
Today's Communication/Plan
-
dc home
OP onc/Gi follow up
PPI bid/carefate
Assessment / Plan
Assessment / Plan
General: In no acute distress
HEENT: Moist mucous membranes, eating breakfast
Respiratory: non labored respiration
GI: non distended
Neuro: AO x 3
A/P: Patient is an 79y M with PMH significant for esophageal cancer s/p stent, s/p TAVR and prior CVA who presents to ED complaining of weakness and fatigue.
Symptomatic Anemia
Acute Blood Loss Anemia on Anemia of Chronic Disease
Presumed GI Blood Loss
- Admit for further evaluation and treatment.
- Hgb = 5.2 on admission.
- No gross bleeding or melena noted - but recent issues with abdominal pain / constipation and known esophageal stent.
- s/p 3 units PRBCs. Hemoglobin 8.9
- Status post EGD. Correspondence noted. Multiple biopsies taken patient and spouse know to follow-up with biopsy results. PPI switched to twice daily. Carafate also ordered.
- Recommended soft/bite size diet per GI recs-defer to patient for compliance.
Esophageal Cancer
- Stent placed in January 2025. Last chemo 6 weeks ago - currently on hold.
- PET / CT done 05/03 showed esophageal enhancement around the stent but no other active areas.
- Onc following-correspondence noted
ASCVD / Prior CVA
- restart aspirin
Severe s/p TAVR
- Stable. LE edema appears to be improving from prior.
- Follow I/Os, daily weights, etc.
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
- Stable. Follow for changes.
- Chronically patient Na range from 126-129
- Sodium improved from 132. FR.
Subacute opiate depedent due to esoghageal metal stent
-oxycodone 10mg q4-6hprn -Cont pain management per oncology.
DVT Prophylaxis: SCDs in setting of severe anemia
Code Status: DNR
Updated spouse over the phone in detail 06/08/2025
PT/OT Home health
More than 30 minutes spent in discharge including
Final examination of the patient
Summarizing hospital stay
Instructions for continuing care to all relevant caregivers
Preparation of discharge records, prescriptions, and referral forms
Total time spent (in minutes): 53
Anticipated Discharge: Today
Subjective/Interval History
-
Date of Service: June 10, 2025
Pt was not happy about soft/bite size diet
Objective Data
-
Labs:
Laboratory Results
06/10/25
07:45
WBC 5.4
Hgb 8.9 L D
Hct 27.0 L
Plt Count 165
Sodium 132 L
Potassium 3.8
Chloride 100
Carbon Dioxide 30
BUN 14
Creatinine 0.8
Glucose 113 H
Calcium 8.0 L
Vital Signs:
Vital Signs
Temp Pulse Resp BP Pulse Ox
98 F 76 16 147/82 100
06/10/25 07:00 06/10/25 07:00 06/10/25 07:00 06/10/25 07:00 06/10/25 07:00
I&O
06/09/25 06/10/25 06/11/25
06:59 06:59 06:59
Intake Total 720 / 720 1510 / 1510
Output Total 1250 / 1250
Balance 720 / 720 1510 / 1510 -1250 / -1250
--- NOTE | 2025-06-10 10:01 | CM ---
F/U: DC no needs. PLAN: Home No Needs.
[2025-06-10 10:44] VITALS: BP 133/74
[2025-06-10] MEDS: ZOFRAN 4 MG IV (11:22)
--- NOTE | 2025-06-10 12:35 | W.DCSUMMARY ---
Discharge Summary
Discharge Data
Date of Admission: 06/06/25
Date of Discharge: 06/10/25
-
Pending Results: No
Hospital Course
Patient is an 79y M with PMH significant for esophageal cancer s/p stent, s/p TAVR and prior CVA who presents to ED complaining of weakness and fatigue. Patient was found to have symptomatic anemia. Patient was evaluated by gastroenterology
and oncology and nephrology. Patient hemoglobin was 5.2 on admission. Received total 3 units of PRBC during hospitalization. Patient underwent endoscopy. Status post biopsies which patient will need to follow-up outpatient with gastroenterology.
Patient also with hyponatremia and received Samsca. Sodium stabilized. PPI was recommended to be twice daily. Carafate was added. Gastroenterology recommended soft and bite-size diet. Upon discharge patient will need to follow-up biopsy result
and then follow-up with oncology for further management.
Discharge Plan
-
Patient Disposition: Home (Routine Discharge)
Discharge Diagnosis/Procedures: Symptomatic anemia status post blood transfusion
Hyponatremia
Iron deficiency anemia
Condition: Fair
Diet: Restrict fluids to 48 oz and Other diet
Additional Diets: SOFT AND BITE SIZE DIET
Activity: As tolerated
Blood Work: CBC AND BMP in 7 days via primary doctor
Referrals:
Sonia Walton MD [Active, Gastroenterology]
Referral Note: 06/30 for BRANDON and esophageal ca
Chino Simental MD [Family Provider, Family Practice] - in less than 1 week
Prescriptions:
New
sucralfate 1 gram Tablet
1 g PO ACHS 30 Days Qty: 120 0RF
ferrous sulfate 325 mg (65 mg iron) tablet
325 mg PO DAILY Qty: 30 0RF
Continued
aspirin 81 mg Tablet,Delayed Release (Dr/Ec)
81 mg PO DAILY Qty: 0 0RF
therapeutic multivitamin Tablet
1 tab PO DAILY
oxycodone 5 mg capsule
10 mg PO Q4HPRN PRN (Reason: Severe Pain)
polyethylene glycol 3350 17 gram Powder In Packet
17 g PO DAILY Qty: 0 0RF
Changed
omeprazole 40 mg Capsule,Delayed Release(Dr/Ec)
40 mg PO BID Qty: 60 0RF
Discharge Orders:
Discharge Patient (As Directed); Ordered 06/10/25
Ordered By: Breezy Zuniga
Discharge Date and Time
Print Language: FAROESE
== END 2025-06-10 14:12 | disposition home or self-care (01) | DRG 375 ==
LOC: 4 EAST ACU 20:53
PROVIDERS: ADMITTING PHYSICIAN Hospitalist; ATTENDING PHYSICIAN Hospitalist; CONSULT PHYSICIAN Internal Medicine Gastroenterology; CONSULT PHYSICIAN Specialist; EMERGENCY PHYSICIAN Emergency Medicine; FAMILY PHYSICIAN Family Medicine; OTHER PHYSICIAN Internal Medicine Hematology & Oncology
PROC: 30233N1 Transfusion of Nonautologous Red Blood Cells into Peripheral Vein, Percutaneous Approach (ICD-10-PCS; 2025-06-06)
PROC: 0DB58ZX Excision of Esophagus, Via Natural or Artificial Opening Endoscopic, Diagnostic (ICD-10-PCS; 2025-06-08)
DX: C15.9 Malignant neoplasm of esophagus, unspecified (principal); D62 Acute posthemorrhagic anemia; K92.2 Gastrointestinal hemorrhage, unspecified; E22.2 Syndrome of inappropriate secretion of antidiuretic hormone; D50.9 Iron deficiency anemia, unspecified; Z86.73 Personal history of transient ischemic attack (TIA), and cerebral infarction without residual deficits; Z95.2 Presence of prosthetic heart valve; K20.90 Esophagitis, unspecified without bleeding; I25.10 Atherosclerotic heart disease of native coronary artery without angina pectoris; G89.29 Other chronic pain; Z92.21 Personal history of antineoplastic chemotherapy; D63.8 Anemia in other chronic diseases classified elsewhere; Z87.891 Personal history of nicotine dependence; Z79.82 Long term (current) use of aspirin; Z79.891 Long term (current) use of opiate analgesic; Z87.11 Personal history of peptic ulcer disease; E88.09 Other disorders of plasma-protein metabolism, not elsewhere classified; Z66 Do not resuscitate; Z92.3 Personal history of irradiation
CPT/HCPCS: 36430; 80048; 80053; 82728; 83540; 83550; 83690; 83930; 83935; 84300; 84484; 85014; 85018; 85025; 85027; 85610; 85730; 86850; 86900; 86901; 86920; 88305; 93005; 96374; 96375; 97116; 97162; 99285; J2916; P9016

== ENCOUNTER 2025-06-14 14:54 | Emergency (ER) | payer OTHER, SELFPAY ==
[2025-06-14 15:04] VITALS: BP 129/74
[2025-06-14 15:44] LABS: INR 1.20; PT 15.0 Sec (11.4-14.6)
[2025-06-14 15:45] LABS: APTT 33.5 Sec (23.4-35.0)
[2025-06-14 15:52] LABS: Hematocrit 26.0 % (39.0-52.0); Hemoglobin 8.8 g/dL (13.0-18.0); Mean Corp Hgb Conc. 33.8 g/dL (33.0-37.0); Mean Corpuscular Volume 86.7 fL (80.0-94.0); Nucleated Red Blood Cells % 0 % (-); Platelet Count 196 10^3/uL (130-400); Red Cell Dist. Width 14.6 % (11.5-14.5)
[2025-06-14 15:55] LABS: ALT (SGPT) 12 U/L (0-50); AST (SGOT) 20 U/L (17-59); Albumin 3.0 g/dl (3.5-5.0); Alkaline Phosphatase 131 U/L (38-126); Blood Urea Nitrogen 15 mg/dl (9-20); Calcium 8.1 mg/dl (8.4-10.2); Carbon Dioxide 28 mmol/L (22-30); Chloride 95 mmol/L (98-107); Glucose 132 mg/dl (70-99); Potassium 3.4 mmol/L (3.5-5.1); Sodium 126 mmol/L (135-145); Total Protein 5.6 g/dl (6.3-8.2); eGFR > 60.00
--- NOTE | 2025-06-14 18:56 | ED.GENMED ---
History of Present Illness
General
Chief Complaint: Weakness
Source: patient
Exam Limitations: none
Time Seen by Provider: 06/14/25 18:37
History of Present Illness
History of Present Illness:
See MDM
Past History
Past History
ED Past Medical History: Cancer (esophageal)
ED Past Surgical History: Other (Esophageal stent placed01/23/25)
Social History
Tobacco: Non-smoker
Alcohol: None
Phy Exam
Physical Exam
Physical Exam:
See MDM
Course
Orders/Labs/Results
Orders:
Orders
06/14/25 15:15
Type+Screen Urgent
Complete Blood Count/With Diff Urgent
Comprehensive Metabolic Panel Urgent
PT/INR [Prothrombin Time] Urgent
Is patient on Coumadin/Warfarin?: No
Comment: [email or web address]
PTT Urgent
06/14/25 18:54
0.9% Sodium Chloride 1000 ml [Nss] 1,000 ml IV BOLUS
06/14/25 19:09
COVID-19 Antigen Urgent
Source: Nasal Swab
Urinalysis Reflex To Culture Urgent
Date Specimen was Collected: 06/14/25
Time Specimen was Collected: 19:07
Influenza A+B Rapid Molecular Urgent
PRANAY Source: Nasal Swab
Specimen Description:
06/14/25 19:16
Oxycodone [Roxicodone] 10 mg PO NOW STA
06/14/25 20:44
Oxycodone [Roxicodone] 10 mg PO NOW STA
Abnormal Lab Results
06/14/25
15:15
RBC 3.00 L 10^6/uL
(4.70-6.10)
Hgb 8.8 L g/dL
(13.0-18.0)
Hct 26.0 L %
(39.0-52.0)
RDW 14.6 H %
(11.5-14.5)
Absolute Lymphs (auto) 1.0 L 10^3/uL
(1.2-3.4)
Neutrophils % 75.7 H %
(42.2-75.2)
Lymphocytes % 14.8 L %
(20.5-51.1)
PT 15.0 H Sec
(11.4-14.6)
Sodium 126 L mmol/L
(135-145)
Potassium 3.4 L mmol/L
(3.5-5.1)
Chloride 95 L mmol/L
(98-107)
Glucose 132 H mg/dl
(70-99)
Calcium 8.1 L mg/dl
(8.4-10.2)
Alkaline Phosphatase 131 H U/L
(38-126)
Total Protein 5.6 L g/dl
(6.3-8.2)
Albumin 3.0 L g/dl
(3.5-5.0)
06/14/25 15:15
06/14/25 15:15
Vital Signs
Initial and Last Documented VS:
Initial Vital Signs
Temp Pulse Resp BP Pulse Ox
98.2 F 78 16 129/74 98
06/14/25 15:04 06/14/25 15:04 06/14/25 15:04 06/14/25 15:04 06/14/25 15:04
Last Documented Vital Signs
Temp Pulse Resp BP Pulse Ox
98.6 F 72 18 175/88 100
06/14/25 19:04 06/14/25 19:04 06/14/25 19:04 06/14/25 19:04 06/14/25 19:04
MDM/Problems Addressed
Differential Diagnosis Includes:
Note:
CHIEF COMPLAINT(S)
Fatigue and weakness.
HISTORY OF PRESENT ILLNESS
The patient is an 79-year-old male with a known history of esophageal cancer presenting with extreme fatigue, weakness, and general malaise. He describes feeling extremely cold and as though he might have a fever. The patient reported feeling
significantly debilitated and stated, 'I feel like Im dying.' He had an endoscopy recently, with biopsies of the esophagus and stomach performed due to previous concerns of cancer. The patient has been informed of the biopsy result indicating
cancer, consistent with his history of esophageal cancer. Blood work shows a stable hemoglobin level at 8.8, and labs do not indicate an obvious cause for his symptoms. The patient also mentioned having a massive bowel movement recently, which
contributed to his state. He feels cold, requests warm blankets, and expresses an ongoing feeling of being unwell.
ADDITIONAL HISTORY OBTAINED FROM SOURCES OTHER THAN THE PATIENT
In conversation, the patient mentioned that Dr. Enriquez contacted him to inform him of the biopsy results showing possible adenocarcinoma.
EXTERNAL RECORDS REVIEWED
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 Previous PET scan noted some activity, suggestive of either cancer recurrence or irritation.
CHRONIC MEDICAL CONDITIONS SIGNIFICANTLY AFFECTING CARE
Chronic conditions affecting care include esophageal cancer.
SOCIAL DETERMINANTS OF HEALTH
The patient has expressed feeling severe fatigue and malaise, potentially adversely impacting daily living and function.
PHYSICAL EXAM
General: Weak and fatigued pale
Skin: Warm, dry.
Head: Normocephalic, atraumatic
Neck: Appears supple, trachea midline.
Eyes, Ears, Nose, Mouth, and Throat: Dry mucous membranes
Cardiovascular: No signs of cyanosis
Respiratory: Respirations are non-labored. Soft and nontender
Abdomen: Non-distended
Musculoskeletal: No deformities
Neurological: No focal neurological deficit observed.
Psychiatric: Cooperative, appropriate mood and affect.
PLAN
- Check urine for potential infection and perform tests for COVID and flu to rule out infection as causes for the patients symptoms.
- Provide IV fluids and warm blankets to address patients cold sensation and possible dehydration.
- Continue follow-up with Dr. Enriquez to discuss the biopsy results and develop a treatment plan for the esophageal cancer.
DIFFERENTIAL DIAGNOSIS
The Differential Diagnosis includes, in no particular order and is not limited to:
- Esophageal cancer
- Esophagitis
- Anemia from chronic illness
- Infection (urinary tract infection or respiratory infection)
- COVID-19
- Influenza
- Dehydration
- Fatigue of unknown etiology
- Psychological response to cancer diagnosis
- Electrolyte imbalance
SUMMARY OF ENCOUNTER
The patient was seen in the emergency department with complaints of extreme fatigue and weakness, with a background of recently confirmed esophageal adenocarcinoma. Blood work indicates stable hemoglobin levels, while additional lab work including a
urinalysis and viral panels were conducted to find any possible underlying cause for his presenting symptoms. IV fluids and warmth were provided. The patient requires ongoing oncology follow-up as advised by Dr. Enriquez, with a focus on potential
treatment options for the recurrent esophageal cancer.
MEDICAL DECISION MAKING
-Complexity of Data Reviewed: Chronic conditions affecting care include esophageal cancer. Differential Diagnosis: Esophageal cancer, Esophagitis, Anemia from chronic illness, Infection, COVID-19, Influenza, Dehydration, Fatigue of unknown etiology,
Psychological response to cancer diagnosis, Electrolyte imbalance.
-Data:
Category 1: Patients pathology from biopsy and prior PET scan reviewed. Urine sample, COVID, and flu tests ordered to determine underlying cause of symptoms.
Category 2: Information corroborated by Dr. Perdomo reading of the biopsy results regarding cancer recurrence.
Category 3: No direct discussion with other healthcare providers about patients ongoing oncology plan but communicated with patient regarding need for follow-up with Dr. Enriquez.
-Risk: Prescription drug management or therapy requiring monitoring for toxicity not indicated during the visit. Observation considered due to the complexity of the patients present complaint and symptoms but decided on outpatient management with
ongoing follow-up as symptoms were stable.
SUMMARY OF ENCOUNTER
The patient visited the emergency department due to extreme fatigue and weakness amid concerns of possible cancer recurrence. After his symptoms were addressed with a dose of oxycodone, he reported feeling significant improvement, with symptoms
resolving. The cause of symptoms raised a concern for potential opiate withdrawal. The patient felt comfortable and was able to ambulate without difficulty by the end of the visit.
DISPOSITION
Discharge.
ASSESSMENT
The resolved symptoms after oxycodone administration suggest a possible case of opiate withdrawal, but further investigation is warranted due to the patients cancer history.
EMERGENCY TREATMENTS ADMINISTERED
Oxycodone was administered to manage the patients symptoms.
PLAN
The patient should follow up with his oncologist to discuss the endoscopy concerns regarding potential cancer recurrence.
PATIENT EDUCATION AND COUNSELING
The patient was informed about the symptoms of opiate withdrawal and the importance of follow-up with his oncologist concerning the recent endoscopy findings.
FOLLOW-UP INSTRUCTIONS
Please follow up with your oncologist.
MEDICATION RECONCILIATION
Administered one dose of oxycodone.
MEDICAL DECISION MAKING
1. Number and Complexity of Problems Addressed: Chronic conditions affecting care include esophageal cancer, with potential opiate withdrawal considered.
2. Data:
Category 1: Lab tests and medical records from previous cancer diagnosis were considered.
Category 2: External records reviewed include knowledge of the recent endoscopy and past PET scan results.
3. Risk: Consideration of Admission/Observation: Escalation of care including admission/observation was considered given the complexity and risk of the patients presenting complaint, exam findings, and their underlying comorbidities. However,
ultimately the patient was deemed safe for outpatient management with close follow-up. Reasoning: The work-up was reassuring, did not reveal any acute life/organ-threatening processes, the patients symptoms were well controlled upon reevaluation,
reexamination was reassuring, vitals were stable, the patient was agreeable with discharge, and was reliable for follow-up.
*Pulse Oximetry
SaO2: 98
Oxygen Mode of Delivery: Room air
Patient hypoxic: no
*Critical Care Note
Total Time (30-74mins, 75-104mins- exclusive of procedures): Not Applicable
ED Attending Note
-
Portions of this chart may have been created with voice recognition software.� Occasional wrong word or��sound alike� substitutions may have occurred due to the inherent limitations of voice recognition software.
Discharge Plan
Departure
Patient Disposition: Home (Routine Discharge)
Date of Disposition: 06/14/25
Time of Disposition: 20:46
Patient with high blood pressure during this ER visit?: Yes
Discharge Problem:
Fatigue
Instructions: BLOOD PRESSURE
Prescriptions:
No Action
aspirin 81 mg Tablet,Delayed Release (Dr/Ec)
81 mg PO DAILY Qty: 0 0RF
therapeutic multivitamin Tablet
1 tab PO DAILY
oxycodone 5 mg capsule
10 mg PO Q4HPRN PRN (Reason: Severe Pain)
polyethylene glycol 3350 17 gram Powder In Packet
17 g PO DAILY Qty: 0 0RF
sucralfate 1 gram Tablet
1 g PO ACHS 30 Days Qty: 120 0RF
ferrous sulfate 325 mg (65 mg iron) tablet
325 mg PO DAILY Qty: 30 0RF
omeprazole 40 mg Capsule,Delayed Release(Dr/Ec)
40 mg PO BID Qty: 60 0RF
Referrals:
Chino Simental MD [Family Provider, Family Practice]
Activity Restrictions/Additional Instructions:
Please return for any worsening symptoms.
You may return at any time if you have further concerns.
Please follow up with your doctor at the first available appointment, preferably this week.
Please follow-up with your oncologist.
Thank you for choosing [facility].
Interventions
Interventions:
*Risk Screen - Suicide Last Done: 06/14/25 15:12
*General Assessment Last Done: 06/14/25 19:31
*Neglect/Abuse Screening Last Done: 06/14/25 15:12
*ED COVID-19 Vaccine History Last Done: 06/14/25 19:31
*ED Influenza Vaccine History Last Done: 06/14/25 19:31
Discharge Date and Time
Print Language: DANISH
[2025-06-14 19:03] VITALS: BMI 21.4
[2025-06-14 19:04] VITALS: BP 175/88
[2025-06-14] MEDS: ROXICODONE 10 MG PO ×2 (19:23→20:55)
[2025-06-14] MEDS: NSS 1000 IV (19:29)
[2025-06-14 19:35] LABS: Urine Character Clear (Clear)
[2025-06-14 19:46] LABS: COVID-19 Antigen Negative (Negative)
[2025-06-14 20:54] VITALS: BP 150/91
== END 2025-06-14 21:20 | disposition home or self-care (01) ==
LOC: EMR 14:54
PROVIDERS: Emergency Medicine; EMERGENCY PHYSICIAN Student in an Organized Health Care Education/Training Program; FAMILY PHYSICIAN Family Medicine
DX: R53.83 Other fatigue (principal); C15.9 Malignant neoplasm of esophagus, unspecified; Z11.52 Encounter for screening for COVID-19
CPT/HCPCS: 99284; 96360; 80053; 81003; 85025; 85610; 85730; 86850; 86900; 86901; 87502; 87811

== ENCOUNTER → 2025-06-22 12:53 | Outpatient (REF) | payer OTHER, SELFPAY ==
[2025-06-22 13:07] LABS: Hematocrit 24.5 % (39.0-52.0); Hemoglobin 7.9 g/dL (13.0-18.0); Mean Corp Hgb Conc. 32.2 g/dL (33.0-37.0); Mean Corpuscular Volume 89.4 fL (80.0-94.0); Platelet Count 140 10^3/uL (130-400); Red Cell Dist. Width 14.1 % (11.5-14.5)
[2025-06-22 15:38] LABS: ALT (SGPT) 13 U/L (0-50); AST (SGOT) 26 U/L (17-59); Albumin 2.7 g/dl (3.5-5.0); Alkaline Phosphatase 115 U/L (38-126); Blood Urea Nitrogen 24 mg/dl (9-20); Calcium 7.9 mg/dl (8.4-10.2); Carbon Dioxide 31 mmol/L (22-30); Chloride 95 mmol/L (98-107); Glucose 113 mg/dl (70-99); Magnesium 2.0 mg/dl (1.6-2.3); Potassium 3.4 mmol/L (3.5-5.1); Sodium 128 mmol/L (135-145); Total Protein 5.2 g/dl (6.3-8.2); eGFR > 60.00
== END ==
LOC: OIDL 12:53
PROVIDERS: ATTENDING PHYSICIAN Internal Medicine Hematology & Oncology; FAMILY PHYSICIAN Family Medicine
DX: C15.5 Malignant neoplasm of lower third of esophagus (principal); D64.9 Anemia, unspecified; D64.81 Anemia due to antineoplastic chemotherapy
CPT/HCPCS: 36415; 80053; 83735; 85025